=== PATIENT | male | born 1945 | race Caucasian/White ===

== ENCOUNTER 2017-08-08 09:20 | Inpatient (IN) | payer OTHER, MEDICARE ==
[~2017-08-08] VITALS: Ht 193 cm; Wt 74.8 kg
[~2017-08-08 09:20] MED LIST: BENZONATATE100 M1 PO; BREO ELLIPTA 11 EACH PO; CALCIUM 500 +1 EAC5 PO; CHERATUSSIN AC118 ML PO; CO Q-10100 MG PO; CRESTOR10 M1 PO; DILTIAZEM ER120 M2 PO; ELIQUIS5 M1 PO; ISOSORBIDE DINIT5 MG PO; LANSOPRAZOLE30 M2 PO; LORAZEPAM0.5 M1 PO; MAGNESIUM OXID400 M1 PO; METOPROLOL SUCC50 M2 PO; OMEGA-3 ACID ETH1 GM PO; POTASSIUM CHLO20 ME2 PO; POTASSIUM CITR10 ME1 PO; PROAIR HFA8.5 GM INH; RANEXA500 M1 PO; Slow-Mag PO; TOPROL XL50 M1 PO; VITAMIN D31000 UNI2 PO
--- NOTE | 2017-08-08 09:24 | ED GENERAL ADULT ---
History of Present Illness General Chief Complaint: Altered Mental Status Stated Complaint: AMS Source: patient, family, old records, EMS Exam Limitations: poor historian Allergies Coded Allergies: NO KNOWN ALLERGIES (11/08/15) Reconcile Medications Albuterol Sulfate (Proair Hfa) 8.5 GM HFA.AER.AD 2 PUF INH Q4H PRN COPD ( Reported) Amiloride HCl 5 MG TABLET 1 TAB PO DAILY FLUID (Reported) Apixaban (Eliquis) 5 MG TABLET 1 TAB PO BID BLOOD THINNER (Reported) Benzonatate 100 MG CAPSULE 1 CAP PO BID COUGHING (Reported) Calcium Carbonate/Vitamin D3 (Calcium 500 + D Tablet) 1 EACH TABLET 1 TAB PO BID SUPPLEMENT (Reported) Cholecalciferol (Vitamin D3) 1,000 UNIT TABLET 1 TAB PO DAILY SUPPLEMENT ( Reported) Dexamethasone 2 MG TABLET 1 TAB PO DAILY SOB (Reported) Diltiazem Cd (Diltiazem ER) 120 MG CAP.ER.DEG 1 TAB PO DAILY HEART RATE CONTROL Fluticasone/Vilanterol (Breo Ellipta 100-25 Mcg INH) 1 EACH BLST.W.DEV 1 INH PO DAILY COPD (Reported) Guaifenesin/Codeine Phosphate (Cheratussin AC Syrup) 118 ML LIQUID 10 ML PO Q4 -6H PRN COUGH (Reported) Lansoprazole 30 MG CAPSULE.DR 1 CAP PO QAM GI (Reported) Lorazepam 0.5 MG TABLET 1 TAB PO BID PRN anxiety (Reported) Magnesium Oxide 400 MG TABLET 1 TAB PO BID SUPPLEMENT (Reported) Metoprolol Succinate 50 MG TAB.ER.24H 1 TAB PO QAM HEART/BP (Reported) [place]-3 Acid Ethyl Esters 1 GM CAPSULE 2 CAP PO BID CHOLESTEROL (Reported) Potassium Citrate (Potassium Citrate ER) 10 MEQ TABLET.ER 2 TAB PO BID LOW POTASSIUM Ranolazine (Ranexa) 500 MG TAB.ER.12H 1 TAB PO BID Coronary artery disease Rosuvastatin Calcium (Crestor) 10 MG TABLET 1 TAB PO QAM CHOLESTEROL ( Reported) [Slow-Mag] 64 MG 1 TAB PO BID LOW MAGNESIUM Ubidecarenone (Co Q-10) 100 MG CAPSULE 1 CAP PO DAILY SUPPLEMENT (Reported) Triage Nurses Notes Reviewed? yes Onset: Gradual Duration: getting worse Timing: recent history Severity: severe Severity Numbers: 7 HPI: Patient is a 72-year-old male with a past medical history of atrial fibrillation (on eliquis for AC), recurrent SCCA of the lung - currently on chemotherapy ( previously treated with chemo/radiation/gamma knife therapy), AL/CAD (triple vessel disease - cardiac cath 1983), COPD, HTN, and HLD, DM AND Old records also indicate that patient had MRI of brain and CT scan of abdomen showing concerns of metastases brain and spleen hypodensity for concerns of metastasis History is limited due to patient's point confusion and being a poor historian however patient is brought in by ambulance for concerns of productive cough increased confusion and lethargy fever noted at home by home care givers, and shortness of breath is present states that he's been too weak to get out of bed Denies any slurred speech or unilateral facial or extremity weakness no vomiting Patient denies any abdominal pain (Tim Jaimes) Vital Signs & Intake/Output Vital Signs & Intake/Output Vital Signs Date Time Temp Pulse Resp B/P B/P Pulse O2 O2 Flow FiO2 Mean Ox Delivery Rate 08/08 1417 100.5 106 20 102/68 93 Nasal 3.0L Cannula 08/08 1207 98.3 122 20 111/67 91 Room Air 08/08 1055 93 Nasal 3.0L Cannula 08/08 1051 91 08/08 1030 98.2 112 20 113/66 90 Room Air 08/08 0936 98.0 120 22 127/64 93 Nasal 3.0L Cannula (Mai ADAN,Allen Paulson) Past History Medical History Any Pertinent Medical History? see below for history Neurological: NONE EENT: NONE Cardiovascular: AFIB, CAD, hypertension, hyperlipidemia, myocardial infarction Respiratory: COPD Gastrointestinal: GERD Hepatic: NONE Renal: NONE Musculoskeletal: NONE Psychiatric: depression Endocrine: diabetes Blood Disorders: anemia Cancer(s): lung cancer ELEMENTARY SPANISH TEACHER/Reproductive: NONE History of MRSA: No History of VRE: No History of CDIFF: No Pneumonia Vaccine: 04/22/11 Surgical History Surgical History: non-contributory Psychosocial History Who do you live with Spouse Services at Home None What is your primary language Serbian Family History Family History, If Any: Relation not specified for: *No pertinent family history Hx Contributory? No (Tim Jaimes) Review of Systems Review of Systems Constitutional: Reports: see HPI, fever. EENTM: Reports: no symptoms. Respiratory: Reports: see HPI, cough, short of breath. Cardiovascular: Reports: see HPI. Denies: chest pain. GI: Reports: no symptoms. Genitourinary: Reports: no symptoms. Musculoskeletal: Reports: no symptoms. Skin: Reports: no symptoms. Neurological/Psychological: Reports: see HPI. Hematologic/Endocrine: Reports: no symptoms. Immunologic/Allergic: Reports: no symptoms. All Other Systems: Reviewed and Negative (Adebayo TAPIA,Tim) Physical Exam Physical Exam General Appearance: comfortable, lethargic Head: atraumatic Eyes: Bilateral: normal appearance, PERRL, EOMI. Ears, Nose, Throat: normal ENT inspection, hearing grossly normal, DRY MUCOUS MEMBRANES Neck: normal inspection Respiratory: no respiratory distress, crackles Cardiovascular: tachycardia, irregularly irregular Peripheral Pulses: 2+ radial (R) Gastrointestinal: normal bowel sounds, soft, non-tender, no organomegaly Extremities: normal capillary refill, normal range of motion, no edema Neurologic/Psych: awake, disoriented x 3 Comments: Bilateral lower extremities noted scattered well-healing skin scabs Core Measures ACS in differential dx? Yes CVA/TIA Diagnosis: No Sepsis Present: Yes Sepsis Focused Exam Completed? Yes (Adebayo TAPIA,Tim) Progress Differential Diagnoses I considered the following diagnoses in my evaluation of the patient: [CHF TIA CVA myocardial infarction sepsis lung cancer and pulmonary embolism, pneumonia, RAFAEL,] Diagnostic Imaging: Viewed by Me: CT Scan. Radiology Impression: acute abnormality Initial ED EKG: ATRIAL FIBRILLATION 112 BPM WITH CONCERNS OF LATERAL st DEPRESSION Prior EKG: changed Comments: PATIENT: CARLOS EDUARDO LOMELI PRESENT AGE: 72 PATIENT ACCOUNT NO: [id number] : 45 LOCATION: [facility] ORDERING PHYSICIAN: Tim TAPIA SERVICE DATE: 08/08/17 EXAM TYPE: CAT - CT ABD & PELVIS W IV CONTRAST; CTA CHEST-PULMONARY EMBOLISM EXAMINATION: CT ANGIOGRAM OF THE CHEST WITH AND WITHOUT CONTRAST (CT PULMONARY ANGIOGRAM FOR PE). CT OF THE ABDOMEN AND PELVIS WITH CONTRAST CLINICAL INFORMATION: Hypoxia. Sepsis. Lung cancer. Known brain metastases. COMPARISON: CT of the chest abdomen pelvis on 04/09/2017. (Right apical lung mass with chest wall invasion. Right hilar adenopathy. Abnormal spleen. Small right pleural effusion). TECHNIQUE: Prior to contrast administration, noncontrast localization images were obtained. Subsequently, multidetector volumetric imaging was performed from the thoracic inlet to below the diaphragms following the administration of 95 mL Optiray 350 intravenous contrast. No contrast reaction reported Sagittal, coronal, and MIP oblique sagittal reformatted images were obtained on the CT workstation, uploaded to PACS, and reviewed. This sequence was followed by CT of the abdomen and pelvis with coronal and sagittal reformats. Total exam dose-length product 1129 mGy-cm FINDINGS: Shank Rander: Enlarging Pancoast tumor right hemithorax. Central venous port catheter directed from the left internal jugular vein to the cavoatrial junction. No intestinal obstruction. Acute process involves the left lower lobe. QUALITY OF STUDY/CONTRAST BOLUS: Excellent. PULMONARY ARTERIES: No central or segmental pulmonary emboli. Pulmonary arteries of the right upper lobe are displaced by the large tumor. THORACIC AORTA: No aneurysm or dissection. LUNG: The large Pancoast tumor in the right apex has increased in size measuring approximately 7.2 cm in width, 10 cm in AP diameter, and 8.6 cm in cephalocaudad dimension. There is continued central necrosis. The tumor extends inferiorly into the region of the right hilum, and there is definite invasion into the posterior mediastinum. There is growth of tumor through the chest wall associated with osteolytic bone destruction of the right upper rib cage and direct extension to the right scapula. A new satellite metastasis measuring 1.8 cm in diameter is located in the right lower lobe. Series 3, image 24. In addition, there are groundglass opacities in the posterior apical and posterior segments of the left upper lobe, superior segment of the left lower lobe, and significant alveolar and interstitial lung disease involving the lower aspect of the left lower lobe. The appearance would indicate superimposed acute multilobar pneumonia. PLEURA: The right pleural effusion has increased in volume. There are nodular metastases involving the visceral pleural reflection of the right lung. MEDIASTINUM: Normal heart size. No significant pericardial effusion. As mentioned above, there is direct tumor extension into the superior aspect of the right hilum and direct invasion into the adjacent posterior mediastinum. No evidence of septal bowing or right heart strain. CHEST WALL/AXILLA: As mentioned above, there is through and through direct extension and invasion of the superior aspect of the right hemithorax involving ribs and scapula. There is no bulk adenopathy of the right axilla. LIVER, GALLBLADDER, AND BILIARY TREE: The liver is normal in size, shape, and attenuation. No focal hepatic lesion or biliary ductal dilatation is present. The gallbladder is abnormally enlarged, but no stones are seen within it. PANCREAS: Fatty replacement. SPLEEN: Normal size. The well demarcated round hypodense nodule in the spleen measures 1.4 cm in diameter. No growth since March 2017. ADRENAL GLANDS: No evidence of metastatic disease. KIDNEYS AND URETERS: The kidneys are normal in size, shape, and attenuation. No hydronephrosis, hydroureter, or calculi. There is exuberant bilateral renal sinus lipomatosis. GASTROINTESTINAL TRACT: Stomach and small bowel non-dilated. No colonic wall thickening or pericolonic inflammatory changes. The distal aspect of the appendix is dilated and filled with mucus. A small appendicolith is present. No periappendiceal inflammatory changes are seen. Series 6, image 545. ABDOMINAL WALL: No hernia seen. LYMPHOVASCULAR STRUCTURES: No lymphadenopathy. The ectatic and calcified aorta is normal in caliber. BLADDER: No focal mass or wall thickening seen. No bladder calculi. PELVIC VISCERA: Unremarkable. OSSEOUS STRUCTURES: Direct extension of the Pancoast tumor results in osteolytic/osteoblastic bone destruction of the right scapula, upper right rib cage, right clavicle, and and the contiguous vertebral bodies at T1-T3. No distant metastatic disease is seen. IMPRESSION: 1. No evidence of pulmonary embolism. 2. Increasing size of the right-sided Pancoast tumor with chest wall extension and direct bone invasion. 3. Enlarging satellite lesion right lower lobe. Pleural seeding with increasing right pleural effusion. 4. Multilobar pneumonia left lung. 5. Hydropic gallbladder without stones. 6. The distal appendix is dilated filled with mucin. VTE: Negative. (Tim Jaimes) Plan of Care: Orders Procedure Date/time Status Consistent Carbohydrate 1 08/08 D Active TROPONIN LEVEL 08/08 1630 Active LACTIC ACID 08/08 1630 Active EKG 08/08 1630 Active Patient Data 08/08 1442 Active Misc Message 08/08 1419 Active ED Holding Orders 08/08 1419 Active Admit to inpatient 08/08 1419 Active Vital Signs 08/08 1419 Active Code Status 08/08 1419 Active LACTIC ACID 08/08 1314 Complete BLOOD CULTURE 08/08 1204 Active Hernandez, Insertion/Removal/Asses 08/08 1053 Active AEROSOL (GEN) 08/08 1050 Complete RAPID VIRAL INFLUENZA A 08/08 1033 Complete D-DIMER 08/08 1022 Complete ARTERIAL BLOOD GAS (GEN) 08/08 1014 Complete Telemetry/Machine Bobbin Winder 08/08 1014 Active CULTURE,URINE 08/08 1014 Active LOWER RESPIRATORY CULTURE 08/08 1014 Active BLOOD CULTURE 08/08 1014 Active URINALYSIS 08/08 1014 Complete TROPONIN LEVEL 08/08 1014 Complete MAGNESIUM 08/08 1014 Complete LACTIC ACID 08/08 1014 Complete COMPREHENSIVE METABOLIC PANEL 08/08 1014 Complete CBC WITHOUT DIFFERENTIAL 08/08 1014 Complete EKG 08/08 0922 Active Current Medications Sig/Mikey Start time Last Medication Dose Stop Time Status Admin Acetaminophen 1,000 MG ONCE ONE 08/08 1500 UNVr (Ofirmev) 08/08 1514 N/A 1 UNIT (No Carrier) Magnesium Sulfate 1 GM Q2H 08/08 1500 UNVr (Mag Sulfate in D5) 08/08 1859 Dextrose/Water 100 ML (D5W) Sodium Chloride 1,000 ML BOLUS ONE 08/08 1500 UNVr (Normal Saline 0.9%) 08/08 1559 Laboratory Tests 08/08/17 1341: Lactic Acid 2.9 H, Urinalysis LIGHT H, Urine Color YEL, Urine Clarity CLEAR, Urine pH 6.0, Ur Specific [place] 1.010, Urine Protein NEG, Urine Ketones NEG, Urine Nitrite POS H, Urine Bilirubin NEG, Urine Urobilinogen 0.2, Ur Leukocyte Esterase NEG, Ur Microscopic SEDIMENT EXAMINED, Urine RBC 1-3, Urine WBC 3-5 H, Urine Bacteria MANY H, Hyaline Casts 1-3 H, Urine Mucus MOD H, Urine Hemoglobin TRACE-INTACT H, Urine Glucose 100 H 08/08/17 1035: pH 7.49 H, pCO2 28 L, pO2 60 L, HCO3 22, ABG O2 Sat (Measured) 89.0 L, Carboxyhemoglobin 1.3 L, O2 Concentration % RA, Phlebotomy Draw Site LEFT BRACHIAL 08/08/17 1015: Anion Gap 20 H, Estimated GFR > 60, BUN/Creatinine Ratio 21.7, Glucose 180 H, Lactic Acid 5.3 H, Calcium 9.0, Magnesium 1.0 L, Total Bilirubin 0.8, AST 21, ALT 36, Alkaline Phosphatase 95, Troponin I 0.07, Total Protein 5.6 L, Albumin 3.2 L, Globulin 2.4, Albumin/Globulin Ratio 1.3, D-Dimer High Sensitivty 920 H , CBC w Diff MAN DIFF ORDERED, RBC 4.56 L, MCV 89.4, MCH 29.7, RDW 17.0 H, MPV 8.7, Gran % 91.7 H, Lymphocytes % 7.1 L, Monocytes % 1.2 L, Eosinophils % 0, Basophils % 0, Absolute Granulocytes 17.7 H, Segmented Neutrophils 84 H, Band Neutrophils 3, Absolute Lymphocytes 1.4, Lymphocytes 11 L, Monocytes 2, Absolute Monocytes 0.2, Absolute Eosinophils 0, Absolute Basophils 0, Platelet Estimate VERIFIED BY SMEAR, Normocytic RBCs VERIFIED, Normochromic RBCs VERIFIED , PUBS MCHC 33.2 Microbiology 08/08 1341 URINE ROUT: Urine Culture - RECD 08/08 1232 NASOPHARYN: Influenza Virus A & B Rapid Smear - COMP 08/08 1205 BLOOD: Blood Culture - RECD 08/08 1042 BLOOD: Blood Culture - RECD 08/08 1014 LOWER RESP: Respiratory Culture - ORD 08/08 1014 LOWER RESP: Gram Stain - ORD 08/08 1014 BLOOD: Blood Culture - CAN Cancelled: Cancelled via OE: NEED LINE BC Patient on initial examination was following all commands appropriately no neurovascular compromise at this time ABG was ordered patient will be given oxygen supplementation Patient has been resting comfortable at bedside however there is concerns sepsis however no concerns for septic shock upon admission IV antibiotics were administered for concerns initially of multilobar pneumonia, PE study was negative patient does have pleural effusion and concerns of worsening metastasis , there is also consideration of urinary tract infection Patient will also be admitted for concerns of ST depression that is new from previous EKGs Discussed admission with Dr. Oneill who also evaluated patient Discussed admission with family members were aware and agree (Tim Jaimes) (Mai ADAN,Allen Paulson) ED Sepsis Exam Date of Focused Sepsis Exam: 08/08/17 Time of Focused Sepsis Exam: 1107 Sepsis Cardiac Exam: Tachycardia Sepsis Resp Exam: CRACKLES Sepsis Cap Refill Exam: <2 Sec Sepsis Peripheral Pulse Exam: Normal Sepsis Peripheral Pulse Location: Radial Sepsis Skin Color Exam: Pale Skin Temp/Moisture Exam: Warm/Dry (Tim Jaimes) Departure Departure Disposition: STILL A PATIENT Condition: Guarded Clinical Impression Primary Impression: Sepsis Secondary Impressions: EKG abnormality, Metastasis, Pleural effusion, Pneumonia, Respiratory failure, UTI (urinary tract infection) Referrals: Liv ADAN,Max Harris (PCP/Family) Departure Forms: Customer Survey General Discharge Information Admission Note Spoke With: Stefania ADAN,Lisa Sage Documentation of Exam: Documentation of any treatments & extenuating circumstances including Concerns Regarding Discharge (functional status, medication knowledge or non-compliance, living conditions, etc.) that warrant an admission rather than observation: [ Patient requires telemetry admission for concerns of EKG abnormalities of ST depression in rapid atrial fibrillation however patient also requires admission for sepsis and multilobar pneumonia IV antibiotics are required IV fluid resuscitation repeat labs pulmonary consultation cardiology consultation, infectious disease consultation oncology consultation] (Tim Jaimes) PA/BURR PICKER Co-Sign Statement Statement: ED Attending supervision documentation- [x] I saw and evaluated the patient. I have also reviewed all the pertinent lab results and diagnostic results. I agree with the findings and the plan of care as documented in the PA's/BURR PICKER's documentation. Patient presents for evaluation of altered mental status. Physical examination reveals a pleasant gentleman with no specific complaint, he is cooperative and conversant. [] I have reviewed the ED Record and agree with the PA's/BURR PICKER's documentation. [] Additions or exceptions (if any) to the PAs/BURR PICKER's note and plan are summarized below: [] (Mai ADAN,Allen Paulson) Critical Care Note Critical Care Note Critical Care Time: 30-74 min (Tim Jaimes)
[2017-08-08] MEDS ORDERED: AMILORIDE HCL5 M1 PO (09:57)
[2017-08-08] MEDS ORDERED: DEXAMETHASONE2 M1 PO (09:58)
[2017-08-08 10:33] LABS: ABSOLUTE BASOPHIL COUNT 0 /CUMM (0.0-0.2); ABSOLUTE EOSINOPHIL COUNT 0 /CUMM (0.0-0.7); ABSOLUTE GRANULOCYTE CT 17.7 /CUMM (1.4-6.5); ABSOLUTE LYMPH COUNT 1.4 /CUMM (1.2-3.4); ABSOLUTE MONOCYTE COUNT 0.2 /CUMM (0.10-0.60); BASOPHIL % 0 % (0.0-2.0); EOSINOPHIL % 0 % (0-5); GRANULOCYTE % 91.7 % (42.2-75.2); HEMATOCRIT 40.8 % (42-52); MEAN CORPUSCULAR HGB 29.7 PG (27.0-31.0); MEAN CORPUSCULAR HGB CONC 33.2 G/DL (33.0-37.0); MEAN CORPUSCULAR VOLUME 89.4 FL (80.0-94.0); MEAN PLATELET VOLUME 8.7 FL (7.4-10.4); PLATELET COUNT 338 /CUMM (130-400); RED BLOOD CELL CT 4.56 /CUMM (4.70-6.10); WHITE BLOOD CELL COUNT 19.3 /CUMM (4.8-10.8)
--- NOTE | 2017-08-08 12:42 | CT SCAN REPORT ---
EXAMINATION: CT HEAD WITHOUT CONTRAST CLINICAL INFORMATION: Lung metastases to brain. COMPARISON: Brain MRI 05/10/[address] 05/04/2017. TECHNIQUE: Contiguous axial imaging was performed from the skull base to vertex without intravenous administration of contrast. DLP: 704 mGy-cm. FINDINGS: There is redemonstration of a subcentimeter metastasis in the left lateral cerebellum which appears approximately stable in size since 05/10/2017. The metastases in the left paracentral lobule and in the right inferior occipital lobe are not well defined. No definite new parenchymal metastasis is seen within the limits of the noncontrast mildly motion degraded study. There is no intracranial hemorrhage, extra-axial collection, or mass effect. There is mild diffuse brain parenchymal volume loss with prominence of the ventricles and sulci. The ventricular size is stable compared to prior. The extracranial structures are stable. No destructive calvarial lesion is seen. The paranasal sinuses and mastoid air cells are essentially clear. IMPRESSION: 1. No acute intracranial abnormality identified. 2. The previously seen metastasis in the left inferior cerebellum appears stable in size since 05/10/2017. The additional metastases within the left paracentral lobule and right inferior occipital lobe are not well defined. No definite new metastases are seen although brain MRI with contrast would be more sensitive.
--- NOTE | 2017-08-08 14:41 | CT SCAN REPORT ---
EXAMINATION: CT ANGIOGRAM OF THE CHEST WITH AND WITHOUT CONTRAST (CT PULMONARY ANGIOGRAM FOR PE). CT OF THE ABDOMEN AND PELVIS WITH CONTRAST CLINICAL INFORMATION: Hypoxia. Sepsis. Lung cancer. Known brain metastases. COMPARISON: CT of the chest abdomen pelvis on 04/09/2017. (Right apical lung mass with chest wall invasion. Right hilar adenopathy. Abnormal spleen. Small right pleural effusion). TECHNIQUE: Prior to contrast administration, noncontrast localization images were obtained. Subsequently, multidetector volumetric imaging was performed from the thoracic inlet to below the diaphragms following the administration of 95 mL Optiray 350 intravenous contrast. No contrast reaction reported Sagittal, coronal, and MIP oblique sagittal reformatted images were obtained on the CT workstation, uploaded to PACS, and reviewed. This sequence was followed by CT of the abdomen and pelvis with coronal and sagittal reformats. Total exam dose-length product 1129 mGy-cm FINDINGS: Ultimate Hoops Trainer: Enlarging Pancoast tumor right hemithorax. Central venous port catheter directed from the left internal jugular vein to the cavoatrial junction. No intestinal obstruction. Acute process involves the left lower lobe. QUALITY OF STUDY/CONTRAST BOLUS: Excellent. PULMONARY ARTERIES: No central or segmental pulmonary emboli. Pulmonary arteries of the right upper lobe are displaced by the large tumor. THORACIC AORTA: No aneurysm or dissection. LUNG: The large Pancoast tumor in the right apex has increased in size measuring approximately 7.2 cm in width, 10 cm in AP diameter, and 8.6 cm in cephalocaudad dimension. There is continued central necrosis. The tumor extends inferiorly into the region of the right hilum, and there is definite invasion into the posterior mediastinum. There is growth of tumor through the chest wall associated with osteolytic bone destruction of the right upper rib cage and direct extension to the right scapula. A new satellite metastasis measuring 1.8 cm in diameter is located in the right lower lobe. Series 3, image 24. In addition, there are groundglass opacities in the posterior apical and posterior segments of the left upper lobe, superior segment of the left lower lobe, and significant alveolar and interstitial lung disease involving the lower aspect of the left lower lobe. The appearance would indicate superimposed acute multilobar pneumonia. PLEURA: The right pleural effusion has increased in volume. There are nodular metastases involving the visceral pleural reflection of the right lung. MEDIASTINUM: Normal heart size. No significant pericardial effusion. As mentioned above, there is direct tumor extension into the superior aspect of the right hilum and direct invasion into the adjacent posterior mediastinum. No evidence of septal bowing or right heart strain. CHEST WALL/AXILLA: As mentioned above, there is through and through direct extension and invasion of the superior aspect of the right hemithorax involving ribs and scapula. There is no bulk adenopathy of the right axilla. LIVER, GALLBLADDER, AND BILIARY TREE: The liver is normal in size, shape, and attenuation. No focal hepatic lesion or biliary ductal dilatation is present. The gallbladder is abnormally enlarged, but no stones are seen within it. PANCREAS: Fatty replacement. SPLEEN: Normal size. The well demarcated round hypodense nodule in the spleen measures 1.4 cm in diameter. No growth since March 2017. ADRENAL GLANDS: No evidence of metastatic disease. KIDNEYS AND URETERS: The kidneys are normal in size, shape, and attenuation. No hydronephrosis, hydroureter, or calculi. There is exuberant bilateral renal sinus lipomatosis. GASTROINTESTINAL TRACT: Stomach and small bowel non-dilated. No colonic wall thickening or pericolonic inflammatory changes. The distal aspect of the appendix is dilated and filled with mucus. A small appendicolith is present. No periappendiceal inflammatory changes are seen. Series 6, image 545. ABDOMINAL WALL: No hernia seen. LYMPHOVASCULAR STRUCTURES: No lymphadenopathy. The ectatic and calcified aorta is normal in caliber. BLADDER: No focal mass or wall thickening seen. No bladder calculi. PELVIC VISCERA: Unremarkable. OSSEOUS STRUCTURES: Direct extension of the Pancoast tumor results in osteolytic/osteoblastic bone destruction of the right scapula, upper right rib cage, right clavicle, and and the contiguous vertebral bodies at T1-T3. No distant metastatic disease is seen. IMPRESSION: 1. No evidence of pulmonary embolism. 2. Increasing size of the right-sided Pancoast tumor with chest wall extension and direct bone invasion. 3. Enlarging satellite lesion right lower lobe. Pleural seeding with increasing right pleural effusion. 4. Multilobar pneumonia left lung. 5. Hydropic gallbladder without stones. 6. The distal appendix is dilated filled with mucin. VTE: Negative.
--- NOTE | 2017-08-08 14:45 | History & Physical ---
BeatrizSarathanastasiarasheeda 08/08/17 1444: General Information and HPI MD Statement: I have seen and personally examined CARLOS EDUARDO LOMELI and documented this H&P. The patient is a 72 year old M who presented with a patient stated chief complaint of []. 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 hypertension, hyperlipidemia, diabetes?, A. fib not on anticoagulation, GERD .last chemotherapy was February 2017 and radiation to the brain was April 2017 and patient did not follow up with oncology due to severe weakness and not being able to get out of the house, was brought by ambulance to hospital for severe coughing, G, diarrhea and weakness. Information was obtained from and patient himself. Apparently patient had one episode of severe coughing more than his baseline with sputum production, increased body temperature, episode of diarrhea and nausea with poor appetite. Patient is completely bedbound and has urine and sometimes bowel incontinence according to the . His functional status is gradually getting worse during the 6 months. No sick contacts or recent travels. Patient has a visiting nurse and some of his home medications were discontinued as by the nurse. Patient has not seen any physicians for 6 months due to being bedbound. At the moment patient denies any chest pain, abdominal pain, nausea, vomiting, shortness of breath. Vital signs on arrival was notable for fever 100.5 and tachycardia 120 with borderline low normal blood pressure, And O2 requirements of 3 L EKG 112, QTC 393, questionable mild ST depressions in V4, V5, V6 Head CT IMPRESSION: 1. No acute intracranial abnormality identified. 2. The previously seen metastasis in the left inferior cerebellum appears stable in size since 05/10/2017. The additional metastases within the left paracentral lobule and right inferior occipital lobe are not well defined. No definite new metastases are seen although brain MRI with contrast would be more sensitive. CTA and CT of abdomen and pelvis: IMPRESSION: 1. No evidence of pulmonary embolism. 2. Increasing size of the right-sided Pancoast tumor with chest wall extension and direct bone invasion. 3. Enlarging satellite lesion right lower lobe. Pleural seeding with increasing right pleural effusion. 4. Multilobar pneumonia left lung. 5. Hydropic gallbladder without stones. 6. The distal appendix is dilated filled with mucin. VTE: Negative. WBC 19.3, hemoglobin 13.7 platelets 338, lactic acid 5.9 >> 3.9 , Sodium 133, magnesium 1, potassium 3.3, Glucose 180 , ag 20 , trop 0.7 ABG ph 7.49 , co2 28, o2 60 Patient receives 2 L of NS and ceftriaxone and azithromycin in the ED and his clinical condition significantly improved according to the , urine bacteria many, glucose 100 in the urine Allergies/Medications Allergies: Coded Allergies: NO KNOWN ALLERGIES (11/08/15) Home Med list Albuterol Sulfate (Proair Hfa) 8.5 GM HFA.AER.AD 2 PUF INH Q4H PRN COPD ( Reported) Amiloride HCl 5 MG TABLET 1 TAB PO DAILY FLUID (Reported) Apixaban (Eliquis) 5 MG TABLET 1 TAB PO BID BLOOD THINNER (Reported) Benzonatate 100 MG CAPSULE 1 CAP PO BID COUGHING (Reported) Calcium Carbonate/Vitamin D3 (Calcium 500 + D Tablet) 1 EACH TABLET 1 TAB PO BID SUPPLEMENT (Reported) Cholecalciferol (Vitamin D3) 1,000 UNIT TABLET 1 TAB PO DAILY SUPPLEMENT ( Reported) Dexamethasone 2 MG TABLET 1 TAB PO DAILY SOB (Reported) Digoxin 125 MCG TABLET 1 TAB PO DAILY heart (Reported) Fluticasone/Vilanterol (Breo Ellipta 100-25 Mcg INH) 1 EACH BLST.W.DEV 1 INH PO DAILY COPD (Reported) Guaifenesin (Mucinex) 600 MG TAB.ER.12H 1 TAB PO BID cough (Reported) Guaifenesin/Codeine Phosphate (Cheratussin AC Syrup) 118 ML LIQUID 10 ML PO Q4 -6H PRN COUGH (Reported) Lansoprazole 30 MG CAPSULE.DR 1 CAP PO QAM GI (Reported) Loratadine (Claritin) 10 MG TABLET 1 TAB PO DAILY cough (Reported) Lorazepam 0.5 MG TABLET 1 TAB PO BID PRN anxiety (Reported) Magnesium Oxide 400 MG TABLET 1 TAB PO BID SUPPLEMENT (Reported) Metoprolol Succinate 50 MG TAB.ER.24H 1 TAB PO QAM HEART/BP (Reported) [place]-3 Acid Ethyl Esters 1 GM CAPSULE 2 CAP PO BID CHOLESTEROL (Reported) Oxycodone HCl/Acetaminophen (Percocet 5-325 MG Tablet) 5 MG-325 MG TABLET 1 TAB PO 4 TIMES/DAY PRN pain (Reported) [Slow-Mag] 64 MG 1 TAB PO BID LOW MAGNESIUM Ubidecarenone (Co Q-10) 100 MG CAPSULE 1 CAP PO DAILY SUPPLEMENT (Reported) Past History Travel History Traveled to [place] past 21 day No Medical History Neurological: NONE EENT: NONE Cardiovascular: AFIB, CAD, hypertension, hyperlipidemia, myocardial infarction Respiratory: COPD Gastrointestinal: GERD Hepatic: NONE Renal: NONE Musculoskeletal: NONE Psychiatric: depression Endocrine: diabetes Blood Disorders: anemia Cancer(s): lung cancer, BRAIN WOOD SAWYER/Reproductive: NONE History of MRSA: No History of VRE: No History of CDIFF: No Pneumonia Vaccine: 04/22/11 Surgical History Surgical History: non-contributory Past Family/Social History Family History Relations & Conditions if any Relation not specified for: *No pertinent family history Psychosocial History Who Do You Live With? spouse Services at Home: None ETOH Use: denies use Illicit Drug Use: denies illicit drug use Functional Ability ADLs Independent: dressing, eating, toileting, bathing. Ambulation: independent IADLs Independent: shopping, housework, finances, food prep, telephone, transportation , medication admin. Review of Systems Review of Systems Constitutional: Reports: see HPI. Exam & Diagnostic Data Last 24 Hrs of Vital Signs/I&O Vital Signs Date Time Temp Pulse Resp B/P B/P Pulse O2 O2 Flow FiO2 Mean Ox Delivery Rate 08/08 1417 100.5 106 20 102/68 93 Nasal 3.0L Cannula 08/08 1207 98.3 122 20 111/67 91 Room Air 08/08 1055 93 Nasal 3.0L Cannula 08/08 1051 91 08/08 1030 98.2 112 20 113/66 90 Room Air 08/08 0936 98.0 120 22 127/64 93 Nasal 3.0L Cannula Intake & Output 08/08 1600 08/08 0800 08/08 0000 Intake Total 0 Output Total Balance 0 Intake, Oral 0 Patient 74.843 kg Weight Physical Exam General Appearance Alert, Oriented X3, No Acute Distress Skin No Rashes Skin Temp/Moisture Exam: Warm/Dry Sepsis Skin Exam (color): Normal for Ethnicity HEENT PERRLA Neck Supple, No JVD Cardiovascular irrgular Lungs rhonci with decreased breath sounds BL Abdomen Normal Bowel Sounds, Soft Extremities No Edema, skin redness on the left buttock 0.5 x 0.5 cm Sepsis Peripheral Pulse Exam: Normal Sepsis Cap Refill Exam: <2 Sec Diagnostic Data EKG Results Afib, heart rate 07/23/2011, QTC 393, questionable mild ST depressions in V4, V5 , V6 Assessment/Plan Assessment: 72-year-old gentleman with past medical history of 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 hypertension, hyperlipidemia, diabetes?, A. fib not on anticoagulation, GERD .last chemotherapy was February 2017 and radiation to the brain was April 2017 and patient did not follow up with oncology due to severe weakness and not being able to get out of the house, was brought by ambulance to hospital for severe coughing, G, diarrhea and weakness. Information was obtained from and patient himself. Apparently patient had one episode of severe coughing more than his baseline with sputum production, increased body temperature, episode of diarrhea and nausea with poor appetite. Patient is completely bedbound and has urine and sometimes bowel incontinence according to the . His functional status is gradually getting worse during the 6 months. No sick contacts or recent travels. Patient has a visiting nurse and some of his home medications were discontinued as by the nurse. Patient has not seen any physicians for 6 months due to being bedbound. At the moment patient denies any chest pain, abdominal pain, nausea, vomiting, shortness of breath. Vital signs on arrival was notable for fever 100.5 and tachycardia 120 with borderline low normal blood pressure, And O2 requirements of 3 L EKG 112, QTC 393, questionable mild ST depressions in V4, V5, V6 Head CT IMPRESSION: 1. No acute intracranial abnormality identified. 2. The previously seen metastasis in the left inferior cerebellum appears stable in size since 05/10/2017. The additional metastases within the left paracentral lobule and right inferior occipital lobe are not well defined. No definite new metastases are seen although brain MRI with contrast would be more sensitive. CTA and CT of abdomen and pelvis: IMPRESSION: 1. No evidence of pulmonary embolism. 2. Increasing size of the right-sided Pancoast tumor with chest wall extension and direct bone invasion. 3. Enlarging satellite lesion right lower lobe. Pleural seeding with increasing right pleural effusion. 4. Multilobar pneumonia left lung. 5. Hydropic gallbladder without stones. 6. The distal appendix is dilated filled with mucin. VTE: Negative. WBC 19.3, hemoglobin 13.7 platelets 338, lactic acid 5.9 >> 3.9 , Sodium 133, magnesium 1, potassium 3.3, Glucose 180 , ag 20 , trop 0.7 ABG ph 7.49 , co2 28, o2 60 Patient receives 2 L of NS and ceftriaxone and azithromycin in the ED and his clinical condition significantly improved according to the , urine bacteria many, glucose 100 in the urine Assessment Metastatic lung cancer with increased size of the tumor Lactic acidosis Pneumonia Atrial fibrillation not on anticoagulation History of COPD Low magnesium, low potassium, Possible overall malnutrition Small bedsore in the buttocks A nonspecific EKG changes Plan Admit to telemetry EKG and troponin 2 Replete potassium and magnesium via oral and IV administration Aggressive IV hydration with bolus and maintenance IV therapy Diabetic diet and Accu-Cheks Hold during attacks for now Hold metoprolol Continue dexamethasone 2 mg daily Continue lorazepam when necessary Continue PPI oral Continue digoxin and check digital If patient heart rate increased he can give low-dose IV metoprolol after ruling out dehydration Continue IV ceftriaxone and azithromycin, blood cultures 2, sputum culture, urine Legionella and strep antigen follow urine culture Full code, DVT to prophylaxis mechanical and pharmacological As Ranked By This Provider Problem List: 1. Pneumonia Core Measures/Misc (04/08) Acute Coronary Syndrome ACS Diagnosis: No Congestive Heart Failure Congestive Heart Failure Diagnosis No Cerebrovascular Accident CVA/TIA Diagnosis: No VTE (View Protocol) VTE Risk Factors Cancer/chemo/othr therapy No Mechanical VTE Prophylaxis d/t N/A MechProphylax Ordered No VTE Pharm Prophylaxis d/t NA PharmProphylax ordered Sepsis (View protocol) Sepsis Present: Yes Stewart Sanchez 08/08/17 1552: Attending MD Review Statement Attending Statement Attending MD Statement: examined this patient, discuss w/resident/PA/SEPTIC TECHNICIAN, agreed w/resident/PA/SEPTIC TECHNICIAN, discussed with family, reviewed EMR data (avail), discussed with nursing, discussed with case mgmt Attending Assessment/Plan: 72-year-old male with a past medical history of atrial fibrillation , recurrent SCCA of the lung - currently on radiation therapy for which he got only 3 out of 10 treatments (previously treated with chemo/gamma knife therapy), WI/CAD in 1983, COPD- quit smoking in 1983, HTN, and HLD, DM AND 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 Patient is brought in by ambulance for concerns of productive cough increased confusion and lethargy fever noted at home and also poor appetite. Pt had a CT scan of the chest and abdomen with contrast done which showed- "1. No evidence of pulmonary embolism. 2. Increasing size of the right-sided Pancoast tumor with chest wall extension and direct bone invasion. 3. Enlarging satellite lesion right lower lobe. Pleural seeding with increasing right pleural effusion. 4. Multilobar pneumonia left lung." Pt in ER was found to have high lactic acid alongwith high wbc with left shift and was given fluid boluses and abx in ED. His tmax in ED was 100.5 Pt being admitted to telemetry due to some ekg changes . A/P- 1. Sepsis secondary to multilobar penumonia- will cont with iv fluids , will be cautious given his increasing rt side pleural effusion. Will stop fluids once his LAcid is normal. will recheck LA in few hours. will start on ceftriaxone and zithromax. 2. Lung cancer with brain metastasis- cont on dexamethasone home dose. will get oncology consult. Pt has very poor performance status and is bedbound for last 3 months and is getting home PT. D/w pt and family hospice and pt does not want to be hospice and wants to be full code. 3. Afib- montior on telmetry. will do repeat trop and will cont on digoxin , will hold on metoprolol for now and will get digoxin level. 4. Code status and goals of care discussed with family. wants to be full code and does not want hospice.
--- NOTE | 2017-08-08 15:41 | Admission Certification ---
Admission Certification Certification Statement - As attending physician, I certify that at the time of - admission, based on clinical presentation, severity of - symptoms, need for further diagnostic testing and - therapeutic interventions, and risk of adverse outcomes - without in-hospital treatment, in my clinical assessment, - this patient requires an acute hospital stay for a minimum - of two nights or longer. I have also considered psychsocial - factors such as support system, advanced age, financial - issues, cognitive issues, and failed out-patient treatments, - past re-admission history, safety of patient, and lack of - compliance as applicable. Specific rationale supporting this admission is: sepsis pneumonia
[2017-08-08] MEDS ORDERED: CLARITIN10 M1 PO (16:27)
[2017-08-08] MEDS ORDERED: MUCINEX600 M1 PO (16:28)
[2017-08-08] MEDS ORDERED: PERCOCET 5-3251 EACH PO (16:28)
[2017-08-08] MEDS ORDERED: DIGOXIN125 MCG PO (16:29)
[2017-08-08 16:30] VITALS: BP 74/0
[2017-08-08 16:51] VITALS: BP 86/0
--- NOTE | 2017-08-08 16:52 | Cons- CRCU ---
See Addendum Laisha Flores 08/08/17 1651: General Information and HPI Consulting Request Date of Consult: 08/08/17 Requested By: Dr. Sanchez Reason for Consult: Sepsis 2/2 multilobar pneumonia Source of Information: family Exam Limitations: clinical condition, poor historian History of Present Illness: 72-year-old gentleman with past medical history of lung cancer most likely NSCC status post multiple chemotherapies and radiation with metastasis to the brain ( last chemotherapy was February 2017 and radiation to the brain was April 2017 and patient did not follow up with oncology due to severe weakness and not being able to get out of the house) CAD but no stents or CABG? hypertension, hyperlipidemia, diabetes?, A. fib not on anticoagulation, GERD, , was brought by ambulance to hospital for severe coughing, diarrhea and weakness. Patient is brought in by ambulance for concerns of productive cough increased confusion and lethargy fever noted at home and also poor appetite. History is obatined from the patient's daughter Zahraa. According to the patient's daughter, he has been coughing more for the last 24 hrs and has had a decreased PO intake for nav past day. Apparently has been bringing up junky, yellowish red sputum, and has had low grade temos of 99F at home. No hx of CP, SOB, however he reports abdominla pain and 4 episodes fo loose watery diarrhea. Patient also had an episode of hematuria a couple of days ago. No hx of sick contact. Of note patient has not been recently hospitalized and has erich bed bound since May. He was ndergoing radiation treatment, hwoever because he is bedbound, has been unale to make any appointments. There is no hx of aspiration. Vitals at the time of admission blood pressure 127/64, respiratory rate of 12, tachycardic to 120, afebrile saturating 92% on 3 L of oxygen via nasal cannula. Labs pertinent for leukocytosis with white blood cell count 19,300 with 3 bands, H&H of 13.6/40.8, MCV of 89.4 and a normal platelet count of 338,000. Serum chemistries revealed a sodium of 133, potassium of 3.3, bicarbonate of 21, elevated anion gap of 20, BUN 13 creatinine 0.6. Serum glucose was 118. Lactic acid first set was 5.3 with a repeat one at 2.9. Serum magnesium was 1.0. LFTs unremarkable with an AST/SGOT 21/36, total bili is 0.8, alkaline phosphatase of 95. First set of troponin 0.07. D-dimer was 920. Digoxin level not received. ABGs revealed respiratory alkalosis with a pH of 7.49, PCO2 of 28 and a PO2 of 60. UA was light with positive for nitrite with 3 to 5W BCs, many bacteria and hyaline casts The ER he underwent a CAT scan of the abdomen and pelvis is off right-sided Pancoast tumor with chest wall extension and direct bony invasion, enlarging satellite lesion of the right lower lobe with pleural seeding and increasing right pleural effusion with multilobar pneumonia in the left lung. Head CT was done which shows no acute intracranial abnormality, previously seen metastases in the left inferior cerebellum which are stable since 05/10/2017 with additional metastases within the left paracentral lobule and right inferior occipital lobe which are not well-defined. In the ER he received 2 L of normal saline, ceftriaxone and azithromycin after which his clinical condition improved according to the . He was admitted to Telemetry for sepsis 2/2 multilobar PNA and acute hypoxic respiratory failure. CRCU consult is being placed as the patient's blood pressure dropped to 86 over Dopplerafter having received 4.0L of NS. Of note, patient is on 2mg of Decadron PO daily, and did not take his edication today. Allergies/Medications Allergies: Coded Allergies: NO KNOWN ALLERGIES (11/08/15) Home Med List: Albuterol Sulfate (Proair Hfa) 8.5 GM HFA.AER.AD 2 PUF INH Q4H PRN COPD ( Reported) Amiloride HCl 5 MG TABLET 1 TAB PO DAILY FLUID (Reported) Apixaban (Eliquis) 5 MG TABLET 1 TAB PO BID BLOOD THINNER (Reported) Benzonatate 100 MG CAPSULE 1 CAP PO BID COUGHING (Reported) Calcium Carbonate/Vitamin D3 (Calcium 500 + D Tablet) 1 EACH TABLET 1 TAB PO BID SUPPLEMENT (Reported) Cholecalciferol (Vitamin D3) 1,000 UNIT TABLET 1 TAB PO DAILY SUPPLEMENT ( Reported) Dexamethasone 2 MG TABLET 1 TAB PO DAILY SOB (Reported) Digoxin 125 MCG TABLET 1 TAB PO DAILY heart (Reported) Fluticasone/Vilanterol (Breo Ellipta 100-25 Mcg INH) 1 EACH BLST.W.DEV 1 INH PO DAILY COPD (Reported) Guaifenesin (Mucinex) 600 MG TAB.ER.12H 1 TAB PO BID cough (Reported) Guaifenesin/Codeine Phosphate (Cheratussin AC Syrup) 118 ML LIQUID 10 ML PO Q4 -6H PRN COUGH (Reported) Lansoprazole 30 MG CAPSULE.DR 1 CAP PO QAM GI (Reported) Loratadine (Claritin) 10 MG TABLET 1 TAB PO DAILY cough (Reported) Lorazepam 0.5 MG TABLET 1 TAB PO BID PRN anxiety (Reported) Magnesium Oxide 400 MG TABLET 1 TAB PO BID SUPPLEMENT (Reported) Metoprolol Succinate 50 MG TAB.ER.24H 1 TAB PO QAM HEART/BP (Reported) [place]-3 Acid Ethyl Esters 1 GM CAPSULE 2 CAP PO BID CHOLESTEROL (Reported) Oxycodone HCl/Acetaminophen (Percocet 5-325 MG Tablet) 5 MG-325 MG TABLET 1 TAB PO 4 TIMES/DAY PRN pain (Reported) [Slow-Mag] 64 MG 1 TAB PO BID LOW MAGNESIUM Ubidecarenone (Co Q-10) 100 MG CAPSULE 1 CAP PO DAILY SUPPLEMENT (Reported) Current Medications: Current Medications Sig/Mikey Start time Last Medication Dose Route Stop Time Status Admin Acetaminophen 650 MG Q6P PRN 08/08 1600 AC PO Acetaminophen 1,000 MG ONCE ONE 08/08 1500 DC 08/08 N/A 1 UNIT IV 08/08 1514 1458 Acetaminophen 0 .STK-MED ONE 08/08 1458 DC IV Albuterol Sulfate 3 ML ONCE ONE 08/08 1015 DC 08/08 INH 08/08 1016 1040 Azithromycin 500 MG DAILY 08/09 1000 AC Sodium Chloride 250 ML IV Azithromycin 500 MG ONCE ONE 08/08 1130 DC 08/08 Sodium Chloride 250 ML IV 08/08 1229 1215 Benzonatate 100 MG BID 08/08 1553 AC PO Budesonide/ 2 PUF BID 08/08 1552 AC Formoterol Fumarate INH Ceftazidime 1,000 MG IQ8 08/09 0000 AC IV Ceftriaxone Sodium 1,000 MG DAILY 08/09 1000 CAN IV Ceftriaxone Sodium 0 .STK-MED ONE 08/08 1212 DC .ROUTE Ceftriaxone Sodium 1,000 MG ONCE ONE 08/08 1130 DC 08/08 IV 08/08 1131 1215 Cholecalciferol 1,000 IU DAILY 08/08 1553 AC PO Dexamethasone 2 MG DAILY 08/08 1552 DC PO Digoxin 0.125 MG 1700 08/08 1700 AC PO Enoxaparin Sodium 40 MG DAILY 08/09 1000 AC SC Guaifenesin/Codeine 10 ML Q6-PRN PRN 08/08 1630 AC Phosphate PO Hydrocortisone 100 MG Q8 08/08 1730 AC 08/08 Sodium Succinate IV 1745 Lorazepam 0.5 MG BID PRN 08/08 1600 AC PO 08/15 1559 Magnesium Chloride 64 MG TID 08/08 1630 AC PO Magnesium Oxide 400 MG BID 08/08 1553 DC PO Magnesium Sulfate 1 GM Q2H 08/08 1500 DC 08/08 Dextrose/Water 100 ML IV 08/08 1859 1902 Potassium Chloride 40 MEQ Q13H 08/08 1545 AC 08/08 Sodium Chloride 1,000 ML IV 1901 Sodium Chloride 1,000 ML BOLUS ONE 08/08 1715 DC 08/08 IV 08/08 1814 1721 Sodium Chloride 1,000 ML BOLUS ONE 08/08 1500 DC 08/08 IV 08/08 1559 1458 Sodium Chloride 1,000 ML BOLUS ONE 08/08 1130 DC 08/08 IV 08/08 1229 1215 Sodium Chloride 1,000 ML BOLUS ONE 08/08 1100 DC 08/08 IV 08/08 1159 1126 Vancomycin HCl 1,000 MG Q12 08/08 2200 AC Sodium Chloride 250 ML IV Review of Systems Review of Systems Constitutional: Reports: fever, malaise, weakness. Denies: chills. EENTM: Denies: visual changes. Cardiovascular: Denies: chest pain, palpitations, peripheral edema. Respiratory: Reports: cough, hemoptysis, sputum production. Denies: orthopnea, short of breath, wheezing. GI: Reports: diarrhea, vomiting. Denies: abdominal pain, nausea. Genitourinary: Reports: hematuria. Musculoskeletal: Reports: no symptoms. Neurological/Psychological: Denies: headache, numbness, tingling, tremors. Past History Travel History Traveled to [place] past 21 day No Medical History Neurological: NONE EENT: NONE Cardiovascular: AFIB, CAD, hypertension, hyperlipidemia, myocardial infarction Respiratory: COPD Gastrointestinal: GERD Hepatic: NONE Renal: NONE Musculoskeletal: NONE Psychiatric: depression Endocrine: diabetes Blood Disorders: anemia Cancer(s): lung cancer, BRAIN G[employer]PLIANCE MECH[employer]IC/Reproductive: NONE Surgical History Surgical History: non-contributory Family History Relations & Conditions If Any: Relation not specified for: *No pertinent family history Psychosocial History Who Do You Live With? spouse Services at Home: None ETOH Use: denies use Illicit Drug Use: denies illicit drug use Functional Ability ADLs Independent: dressing, eating, toileting, bathing. Ambulation: independent IADLs Independent: shopping, housework, finances, food prep, telephone, transportation , medication admin. Exam & Diagnostic Data Last 24 Hrs of Vital Signs/I&O Vital Signs Date Time Temp Pulse Resp B/P B/P Pulse O2 O2 Flow FiO2 Mean Ox Delivery Rate 08/08 1654 99.1 84 20 95 Nasal 3.0L Cannula 08/08 1651 86/0 08/08 1551 92 18 99/64 96 Nasal 3.0L Cannula 08/08 1458 100.5 08/08 1417 100.5 106 20 102/68 93 Nasal 3.0L Cannula 08/08 1207 98.3 122 20 111/67 91 Room Air 08/08 1055 93 Nasal 3.0L Cannula 08/08 1051 91 08/08 1030 98.2 112 20 113/66 90 Room Air 08/08 0936 98.0 120 22 127/64 93 Nasal 3.0L Cannula Intake & Output 08/08 1600 08/08 0800 08/08 0000 Intake Total 2250 Output Total 340 Balance 1910 Intake, IV 2250 Intake, Oral 0 Output, Urine 340 Patient 165 lb Weight Physical Exam General Appearance: comfortable, lethargic, drowsy but arousable Head: atraumatic, normal appearance Eyes: Bilateral: normal appearance, PERRL, EOMI. Neck: normal inspection, supple, no eleavetd JVD Respiratory: b/l ronchi, no wheezing Gastrointestinal: soft, non-tender, hyperactive bowel sounds Extremities: b/l trace edema Neurologic/Psych: no motor/sensory deficits, alert Cranial Nerves: normal hearing, PERRL Last 48 Hrs of Labs/Gaurav: Laboratory Tests 08/08/17 1341: Lactic Acid 2.9 H, Urinalysis LIGHT H, Urine Color YEL, Urine Clarity CLEAR, Urine pH 6.0, Ur Specific [place] 1.010, Urine Protein NEG, Urine Ketones NEG, Urine Nitrite POS H, Urine Bilirubin NEG, Urine Urobilinogen 0.2, Ur Leukocyte Esterase NEG, Ur Microscopic SEDIMENT EXAMINED, Urine RBC 1-3, Urine WBC 3-5 H, Urine Bacteria MANY H, Hyaline Casts 1-3 H, Urine Mucus MOD H, Urine Hemoglobin TRACE-INTACT H, Urine Glucose 100 H 08/08/17 1035: pH 7.49 H, pCO2 28 L, pO2 60 L, HCO3 22, ABG O2 Sat (Measured) 89.0 L, Carboxyhemoglobin 1.3 L, O2 Concentration % RA, Phlebotomy Draw Site LEFT BRACHIAL 08/08/17 1015: Anion Gap 20 H, Estimated GFR > 60, BUN/Creatinine Ratio 21.7, Glucose 180 H, Lactic Acid 5.3 H, Calcium 9.0, Magnesium 1.0 L, Total Bilirubin 0.8, AST 21, ALT 36, Alkaline Phosphatase 95, Troponin I 0.07, Total Protein 5.6 L, Albumin 3.2 L, Globulin 2.4, Albumin/Globulin Ratio 1.3, D-Dimer High Sensitivty 920 H , CBC w Diff MAN DIFF ORDERED, RBC 4.56 L, MCV 89.4, MCH 29.7, RDW 17.0 H, MPV 8.7, Gran % 91.7 H, Lymphocytes % 7.1 L, Monocytes % 1.2 L, Eosinophils % 0, Basophils % 0, Absolute Granulocytes 17.7 H, Segmented Neutrophils 84 H, Band Neutrophils 3, Absolute Lymphocytes 1.4, Lymphocytes 11 L, Monocytes 2, Absolute Monocytes 0.2, Absolute Eosinophils 0, Absolute Basophils 0, Platelet Estimate VERIFIED BY SMEAR, Normocytic RBCs VERIFIED, Normochromic RBCs VERIFIED , PUBS MCHC 33.2 Microbiology 08/08 1341 URINE ROUT: Legionella Antigen - COMP 08/08 1341 URINE ROUT: Streptococcus pneumoniae Antigen (M - COMP 08/08 1232 NASOPHARYN: Influenza Virus A & B Rapid Smear - COMP Diagnostic Data Other Results SERVICE DATE: 08/08/17-110 EXAM TYPE: CAT - CT ABD & PELVIS W IV CONTRAST; CTA CHEST-PULMONARY EMBOLISM FINDINGS: Grassroots Organizer: Enlarging Pancoast tumor right hemithorax. Central venous port catheter directed from the left internal jugular vein to the cavoatrial junction. No intestinal obstruction. Acute process involves the left lower lobe. QUALITY OF STUDY/CONTRAST BOLUS: Excellent. PULMONARY ARTERIES: No central or segmental pulmonary emboli. Pulmonary arteries of the right upper lobe are displaced by the large tumor. THORACIC AORTA: No aneurysm or dissection. LUNG: The large Pancoast tumor in the right apex has increased in size measuring approximately 7.2 cm in width, 10 cm in AP diameter, and 8.6 cm in cephalocaudad dimension. There is continued central necrosis. The tumor extends inferiorly into the region of the right hilum, and there is definite invasion into the posterior mediastinum. There is growth of tumor through the chest wall associated with osteolytic bone destruction of the right upper rib cage and direct extension to the right scapula. A new satellite metastasis measuring 1.8 cm in diameter is located in the right lower lobe. Series 3, image 24. In addition, there are groundglass opacities in the posterior apical and posterior segments of the left upper lobe, superior segment of the left lower lobe, and significant alveolar and interstitial lung disease involving the lower aspect of the left lower lobe. The appearance would indicate superimposed acute multilobar pneumonia. PLEURA: The right pleural effusion has increased in volume. There are nodular metastases involving the visceral pleural reflection of the right lung. MEDIASTINUM: Normal heart size. No significant pericardial effusion. As mentioned above, there is direct tumor extension into the superior aspect of the right hilum and direct invasion into the adjacent posterior mediastinum. No evidence of septal bowing or right heart strain. CHEST WALL/AXILLA: As mentioned above, there is through and through direct extension and invasion of the superior aspect of the right hemithorax involving ribs and scapula. There is no bulk adenopathy of the right axilla. LIVER, GALLBLADDER, AND BILIARY TREE: The liver is normal in size, shape, and attenuation. No focal hepatic lesion or biliary ductal dilatation is present. The gallbladder is abnormally enlarged, but no stones are seen within it. PANCREAS: Fatty replacement. SPLEEN: Normal size. The well demarcated round hypodense nodule in the spleen measures 1.4 cm in diameter. No growth since March 2017. ADRENAL GLANDS: No evidence of metastatic disease. KIDNEYS AND URETERS: The kidneys are normal in size, shape, and attenuation. No hydronephrosis, hydroureter, or calculi. There is exuberant bilateral renal sinus lipomatosis. GASTROINTESTINAL TRACT: Stomach and small bowel non-dilated. No colonic wall thickening or pericolonic inflammatory changes. The distal aspect of the appendix is dilated and filled with mucus. A small appendicolith is present. No periappendiceal inflammatory changes are seen. Series 6, image 545. ABDOMINAL WALL: No hernia seen. LYMPHOVASCULAR STRUCTURES: No lymphadenopathy. The ectatic and calcified aorta is normal in caliber. BLADDER: No focal mass or wall thickening seen. No bladder calculi. PELVIC VISCERA: Unremarkable. OSSEOUS STRUCTURES: Direct extension of the Pancoast tumor results in osteolytic/osteoblastic bone destruction of the right scapula, upper right rib cage, right clavicle, and and the contiguous vertebral bodies at T1-T3. No distant metastatic disease is seen. IMPRESSION: 1. No evidence of pulmonary embolism. 2. Increasing size of the right-sided Pancoast tumor with chest wall extension and direct bone invasion. 3. Enlarging satellite lesion right lower lobe. Pleural seeding with increasing right pleural effusion. 4. Multilobar pneumonia left lung. 5. Hydropic gallbladder without stones. 6. The distal appendix is dilated filled with mucin. VTE: Negative. SERVICE DATE: 08/08/17 EXAM TYPE: CAT - CT HEAD WO IV CONTRAST FINDINGS: There is redemonstration of a subcentimeter metastasis in the left lateral cerebellum which appears approximately stable in size since 05/10/2017. The metastases in the left paracentral lobule and in the right inferior occipital lobe are not well defined. No definite new parenchymal metastasis is seen within the limits of the noncontrast mildly motion degraded study. There is no intracranial hemorrhage, extra-axial collection, or mass effect. There is mild diffuse brain parenchymal volume loss with prominence of the ventricles and sulci. The ventricular size is stable compared to prior. The extracranial structures are stable. No destructive calvarial lesion is seen. The paranasal sinuses and mastoid air cells are essentially clear. IMPRESSION: 1. No acute intracranial abnormality identified. 2. The previously seen metastasis in the left inferior cerebellum appears stable in size since 05/10/2017. The additional metastases within the left paracentral lobule and right inferior occipital lobe are not well defined. No definite new metastases are seen although brain MRI with contrast would be more sensitive. Echo (10/2015): Normal left ventricular systolic function with mild concentric hypertrophy. Mild left atrial enlargement. Assessment/Plan Impression/Plan: In summary this is a 72-year-old gentleman with past medical history of lung cancer most likely NSCC status post multiple chemotherapies and radiation with metastasis to the brain (last chemotherapy was February 2017 and radiation to the brain was April 2017 and patient did not follow up with oncology due to severe weakness and not being able to get out of the house) CAD but no stents or CABG? hypertension, hyperlipidemia, diabetes?, A. fib not on anticoagulation, GERD, was brought by ambulance to hospital for severe coughing, diarrhea and weakness, who was admitted with sepsis 2/2 multilobar pneumonia. Given the fact that he is on chronic steroids, a dn had not received the morning dose, Problem list - Sepsis 2/2 multilobar PNA - Acute hypoxic respiratory failure 2/2 multilobar PNA. PE has been R/O - Lactic acidosis 2/2 sepsis - AGMA 2/2 lactic acidosis with metabolic alkalosis 2/2 vomiting adn dehydration - AMA 2/2 encephalopathy from sepsis - Stage IV NSCC lung cancer - Hx of CAD in 1983 - Diarrhea Recommendations: Recommendations - Would start him on stress dose steroids with Solucortef 100mg IV 8 - Bolus another liter of NS - Low threshold for transfer to ICU if MAP <65mmHg and start on Levophed with goal MAP fo 65mmHg. Of note patient already has a port-a cath - Would cover him with broad spectrum Abx Vanc/Ceftaz/ Azithromycin - F/U LRC, BCx2. - Of note rapid flu and urinary antigen for legionella nd strep pneumo was negative - Repelte Mg to maintain goal > 2, F/U Phosp and replete K - F/U dig levels. - Continue to hold all antihypertensives. - Would avoid benzos - Send stool for C. Diff toxin - ID consult in AM - Of note had an extensive discussion with [facility] patient's daughter Ying who can be reached at [phone] and the who can be reached at [phone] ( home) and [phone] (cell). Patient's family understands the guarded prognosis, and need to be contacted if his clinical condition detriorates. The patient, however, wishes to remain full code. Problem List: 1. Small cell carcinoma of lung 2. Sepsis Consult Acknowledgment - Thank you for your consult request. Carlos Sanchez MD 08/08/17 3605: Assessment/Plan Other Findings/Comments: Agree with resident history, physical and plan. Patient seen independently as well. Discussed with housestaff. Correction - patient has a history of a SMALL cell carcinoma. His prognosis is very poor. Impression 72 year old man * 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 * here with multilobar left sided pneumonia resulting in severe sepsis (low bp) responsive to fluids * confusion/altered mental status * immunocompromised state causing the etiology of the pneumonia to have a broad potential etiology Plan -iv hydration -stress dose steroids given decadron use for brain mets and recently missing dose -broad spectrum abx with recommendation for ID consultation in am, in meantime give vancomycin, ceftazadime and zithromax for atypical coverage -mercado culture, flu swab, legionella ag, strep ag -patient has port for access -if deteriorates can come to ICU, at this time no ICU level of care is required as the BP recovered with IV fluids and steroids -discussed his condition at length with his and daughter. a very poor prognosis was discussed. he remains full code, however this will continue to be addressed. in the meantime if there is a significant deterioration the family may consider moving to a conservative management if the circumstances permit -TRC/Nebs -electrolyte repletion as necessary DVT prophylaxis at all times Consult Acknowledgment - Thank you for your consult request.
[2017-08-08 19:30] VITALS: BP 112/40
[2017-08-08 20:14] VITALS: BP 102/50
[2017-08-08 23:41] VITALS: BP 108/56
[2017-08-09 06:38] VITALS: BP 94/52
--- NOTE | 2017-08-09 07:20 | PN- Housestaff ---
See Addendum Subjective Follow-up For: multilobar PNA Tele-Events Since Last Visit: afib, 70-90 Subjective: Admitted last night. Fever to 100.5 earlier in evening, has since defervesced. Feels good this morning, not complaining of CP, SOB, abd pain, or anything else. Review of Systems Constitutional: Reports: no symptoms. EENTM: Reports: no symptoms. Cardiovascular: Reports: no symptoms. Respiratory: Reports: no symptoms. Gastrointestinal: Reports: no symptoms. Genitourinary: Reports: no symptoms. Musculoskeletal: Reports: no symptoms. Skin: Reports: no symptoms. Neurological/Psychological: Reports: no symptoms. Hematologic/Endocrine: Reports: no symptoms. Immunologic/Allergic: Reports: no symptoms. Objective Last 24 Hrs of Vital Signs/I&O Vital Signs Date Time Temp Pulse Resp B/P B/P Pulse O2 O2 Flow FiO2 Mean Ox Delivery Rate 08/09 0638 98.2 78 20 94/52 95 Nasal Cannula 08/09 0000 Nasal 3.0L Cannula 08/08 2348 98.8 90 20 93 Nasal Cannula 08/08 2341 108/56 08/08 2226 Nasal 3.0L Cannula 08/08 2136 62 108/56 08/08 2014 79 102/50 08/08 1930 79 112/40 08/08 1654 99.1 84 20 95 Nasal 3.0L Cannula 08/08 1651 86/0 08/08 1630 74/0 08/08 1630 96 Nasal 3.0L Cannula 08/08 1551 92 18 99/64 96 Nasal 3.0L Cannula 08/08 1458 100.5 08/08 1417 100.5 106 20 102/68 93 Nasal 3.0L Cannula 08/08 1207 98.3 122 20 111/67 91 Room Air 08/08 1055 93 Nasal 3.0L Cannula 08/08 1051 91 08/08 1030 98.2 112 20 113/66 90 Room Air 08/08 0936 98.0 120 22 127/64 93 Nasal 3.0L Cannula Intake & Output 08/09 0800 08/09 0000 08/08 1600 Intake Total 525 1350 2250 Output Total 250 850 340 Balance 683 238 4477 Intake, IV 425 1250 2250 Intake, Oral 100 100 0 Number 0 Bowel Movements Output, Urine 250 850 340 Patient 165 lb Weight Physical Exam General Appearance: Alert, Oriented X3, Cooperative, No Acute Distress Cardiovascular: irregular Lungs: significant wheezing and crackles bilaterally Abdomen: Normal Bowel Sounds, Soft, No Tenderness Neurological: Normal Speech Extremities: No Edema, Normal Pulses, No Tenderness/Swelling Current Medications: Current Medications Sig/Mikey Start time Last Medication Dose Route Stop Time Status Admin Acetaminophen 650 MG Q6P PRN 08/08 1600 AC PO Acetaminophen 1,000 MG ONCE ONE 08/08 1500 DC 08/08 N/A 1 UNIT IV 08/08 1514 1458 Acetaminophen 0 .STK-MED ONE 08/08 1458 DC IV Albuterol Sulfate 3 ML EVERY 4 HRS/AWAKE 08/09 0800 AC INH Albuterol Sulfate 3 ML ONCE ONE 08/08 1015 DC 08/08 INH 08/08 1016 1040 Azithromycin 500 MG DAILY 08/09 1000 AC Sodium Chloride 250 ML IV Azithromycin 500 MG ONCE ONE 08/08 1130 DC 08/08 Sodium Chloride 250 ML IV 08/08 1229 1215 Benzonatate 100 MG BID 08/08 1553 AC 08/08 PO 2125 Budesonide/ 2 PUF BID 08/08 1552 AC 08/08 Formoterol Fumarate INH 2140 Ceftazidime 1,000 MG IQ8 08/09 0000 AC 08/09 IV 0110 Ceftriaxone Sodium 1,000 MG DAILY 08/09 1000 CAN IV Ceftriaxone Sodium 0 .STK-MED ONE 08/08 1212 DC .ROUTE Ceftriaxone Sodium 1,000 MG ONCE ONE 08/08 1130 DC 08/08 IV 08/08 1131 1215 Cholecalciferol 1,000 IU DAILY 08/08 1553 AC 08/08 PO 2125 Dexamethasone 2 MG DAILY 08/08 1552 DC PO Digoxin 0.125 MG 1700 08/08 1700 AC 08/08 PO 2136 Enoxaparin Sodium 40 MG DAILY 08/09 1000 AC SC Guaifenesin/Codeine 10 ML Q6-PRN PRN 08/08 1630 AC Phosphate PO Hydrocortisone 100 MG Q8 08/08 1730 AC 08/09 Sodium Succinate IV 0556 Lorazepam 0.5 MG BID PRN 08/08 1600 AC PO 08/15 1559 Magnesium Chloride 64 MG TID 08/08 1630 AC 08/08 PO 2124 Magnesium Oxide 400 MG BID 08/08 1553 DC PO Magnesium Sulfate 1 GM Q2H 08/08 1500 DC 08/08 Dextrose/Water 100 ML IV 08/08 1859 1902 Potassium Chloride 20 MEQ ONCE ONE 08/08 2355 CAN PO 08/08 2356 Potassium Chloride 10 MEQ Q1H 08/08 2300 DC 08/09 IV 08/09 0001 0351 Potassium Chloride 20 MEQ ONCE ONE 08/08 2145 DC PO 08/08 2146 Potassium Chloride 40 MEQ Q13H 08/08 1545 AC 08/08 Sodium Chloride 1,000 ML IV 1901 Sodium Chloride 1,000 ML BOLUS ONE 08/08 1715 DC 08/08 IV 08/08 1814 1721 Sodium Chloride 1,000 ML BOLUS ONE 08/08 1500 DC 08/08 IV 08/08 1559 1458 Sodium Chloride 1,000 ML BOLUS ONE 08/08 1130 DC 08/08 IV 08/08 1229 1215 Sodium Chloride 1,000 ML BOLUS ONE 08/08 1100 DC 08/08 IV 08/08 1159 1126 Vancomycin HCl 1,000 MG Q12 08/08 2200 DC Sodium Chloride 250 ML IV Vancomycin HCl 1,000 MG Q12 08/08 2230 AC 08/08 Dextrose/Water 250 ML IV 2259 Last 24 Hrs of Lab/Gaurav Results Last 24 Hrs of Labs/Mics: Laboratory Tests 08/09/17 0704: CBC w Diff Pending, WBC Pending, RBC Pending, Hgb Pending, Hct Pending, MCV Pending, MCH Pending, RDW Pending, Plt Count Pending, MPV Pending, PUBS MCHC Pending 08/09/17 0623: Sodium Pending, Potassium Pending, Chloride Pending, Carbon Dioxide Pending, Anion Gap Pending, BUN Pending, Creatinine Pending, BUN/Creatinine Ratio Pending , Magnesium Pending 08/08/17 1910: Anion Gap 10, Estimated GFR > 60, BUN/Creatinine Ratio 20.0, Lactic Acid 1.5, Phosphorus 3.6, Magnesium 1.6, Troponin I 0.05, Digoxin 0.6 L 08/08/17 1827: Sodium Cancelled, Potassium Cancelled, Chloride Cancelled, Carbon Dioxide Cancelled, Anion Gap Cancelled, BUN Cancelled, Creatinine Cancelled, BUN/ Creatinine Ratio Cancelled, Phosphorus Cancelled, Magnesium Cancelled 08/08/17 1341: Lactic Acid 2.9 H, Urinalysis LIGHT H, Urine Color YEL, Urine Clarity CLEAR, Urine pH 6.0, Ur Specific [place] 1.010, Urine Protein NEG, Urine Ketones NEG, Urine Nitrite POS H, Urine Bilirubin NEG, Urine Urobilinogen 0.2, Ur Leukocyte Esterase NEG, Ur Microscopic SEDIMENT EXAMINED, Urine RBC 1-3, Urine WBC 3-5 H, Urine Bacteria MANY H, Hyaline Casts 1-3 H, Urine Mucus MOD H, Urine Hemoglobin TRACE-INTACT H, Urine Glucose 100 H 08/08/17 1035: pH 7.49 H, pCO2 28 L, pO2 60 L, HCO3 22, ABG O2 Sat (Measured) 89.0 L, Carboxyhemoglobin 1.3 L, O2 Concentration % RA, Phlebotomy Draw Site LEFT BRACHIAL 08/08/17 1015: Anion Gap 20 H, Estimated GFR > 60, BUN/Creatinine Ratio 21.7, Glucose 180 H, Lactic Acid 5.3 H, Calcium 9.0, Magnesium 1.0 L, Total Bilirubin 0.8, AST 21, ALT 36, Alkaline Phosphatase 95, Troponin I 0.07, Total Protein 5.6 L, Albumin 3.2 L, Globulin 2.4, Albumin/Globulin Ratio 1.3, D-Dimer High Sensitivty 920 H , CBC w Diff MAN DIFF ORDERED, RBC 4.56 L, MCV 89.4, MCH 29.7, RDW 17.0 H, MPV 8.7, Gran % 91.7 H, Lymphocytes % 7.1 L, Monocytes % 1.2 L, Eosinophils % 0, Basophils % 0, Absolute Granulocytes 17.7 H, Segmented Neutrophils 84 H, Band Neutrophils 3, Absolute Lymphocytes 1.4, Lymphocytes 11 L, Monocytes 2, Absolute Monocytes 0.2, Absolute Eosinophils 0, Absolute Basophils 0, Platelet Estimate VERIFIED BY SMEAR, Normocytic RBCs VERIFIED, Normochromic RBCs VERIFIED , PUBS MCHC 33.2 Microbiology 08/08 1822 STOOL: Clostridium difficile Toxin A & B - COLB 08/08 1341 URINE ROUT: Legionella Antigen - COMP 08/08 1341 URINE ROUT: Streptococcus pneumoniae Antigen (M - COMP 08/08 1341 URINE ROUT: Urine Culture - RECD 08/08 1232 NASOPHARYN: Influenza Virus A & B Rapid Smear - COMP 08/08 1205 BLOOD: Blood Culture - RECD 08/08 1042 BLOOD: Blood Culture - RECD 08/08 1014 LOWER RESP: Respiratory Culture - COLB 08/08 1014 LOWER RESP: Gram Stain - COLB 08/08 1014 BLOOD: Blood Culture - CAN Cancelled: Cancelled via OE: NEED LINE BC Assessment/Plan Assessment: 72-year-old gentleman with past medical history of lung cancer most likely NSCC status post multiple chemotherapies and radiation with metastasis to the brain, distant NE but no stents or CABG? hypertension, hyperlipidemia, diabetes?, A. fib not on anticoagulation, GERD, last chemotherapy was February 2017 and radiation to the brain was April 2017 and patient did not follow up with oncology due to severe weakness and not being able to get out of the house, was brought by ambulance to hospital for severe coughing, G, diarrhea and weakness. Problem List: 1. Severe Sepsis 2. Multilobar pneumonia 3. Subtherapeutic digoxin 4. Electrolyte abnormalities #Severe sepsis secondary to multilobar pneumonia: Patient presents with productive cough, increased confusion, and shortness of breath. He was found to me 3/4 SIRS criteria (tachycardia, tachypnea, leukocytosis) with suspected source in lung, meeting criteria for sepsis with lactic acidosis. Lactic acid is trended down status post fluid resuscitation. He was initially started on ceftriaxone and azithromycin. However the patient became hypotensive last night and the antibiotic coverage was broadened to vancomycin and ceftazidine. He was given a stress dose of steroids and has since been hemodynamically stable. -Appreciate pulmonology recommendations -Follow cultures -Continue vancomycin, ceftazidine, azithromycin. Consider switching to ceftriaxone and azithromycin. -Hydrocortisone 100 mg every 8 -Guaifenesin -Budesonide/formoterol -Benzonatate -TRC nebs -ID consult #Subtherapeutic digoxin: Digoxin level subtherapeutic. However heart rate has been normal. -CTM heart rate #Electronic abnormalities: Magnesium/K was low. -Continue to monitor -Recheck BEP at 1600 #Chronic medical problems: -Continue home magnesium, digoxin, lorazepam, cholecalciferol, DVT prophylaxis with enoxaparin Consistent carbohydrate 2 diet Full code Problem List: 1. Pneumonia Pain Ratin Pain Location: none Pain Goal: Remain pain free Pain Plan: see a/p Tomorrow's Labs & Rationales: cbc bep mg \
[2017-08-09 08:18] LABS: ABSOLUTE BASOPHIL COUNT 0 /CUMM (0.0-0.2); ABSOLUTE EOSINOPHIL COUNT 0 /CUMM (0.0-0.7); ABSOLUTE LYMPH COUNT 0.3 /CUMM (1.2-3.4); ABSOLUTE MONOCYTE COUNT 0.2 /CUMM (0.10-0.60); BASOPHIL % 0 % (0.0-2.0); EOSINOPHIL % 0 % (0-5)
--- NOTE | 2017-08-09 08:27 | Cons- Oncology ---
General Information and HPI Consulting Request Date of Consult: 08/09/17 Requested By: Daniel ADAN,Stewart Maza Reason for Consult: Metastatic small cell lung cancer Source of Information: patient, family, old records Exam Limitations: poor historian History of Present Illness: Mr. Barraza is a 72-year-old male with metastatic small cell lung cancer, CAD, HLD, HTN, and atrial fibrillation who presented to the hospital with worsening fatigue, cough, and shortness of breath. He has been having progressively worsening weakness and has been basically bed-bound. Over the last few weeks, he has been having increasing shortness of breath and productive cough. He has no fever or chills. he denies any significant diarrhea. He has been unable to follow up in clinic. Due to the progressive symptoms, he was sent to the [facility] Emergency Department by EMS. On admission, he was noted to have a temperature of a 100.5F and tachycardic. Blood pressure was relatively low. He was noted to be slightly confused. CT of the head was obtained and noted stable metastatic disease. CTA of the chest and CT of the abdomen/pelvis demonstrated increasing right-sided Pancoast tumor with direct bone invasion. There was enlarging satellite lesion in the right lower lobe. Pleural seeding was noted and has increased right pleural effusion. He was noted to have multi lobular pneumonia in the left lung. Blood work demonstrated elevated WBC and lactic acid. Of note , he has been on dexamethasone 2 mg daily for appetite stimulant. Allergies/Medications Allergies: Coded Allergies: NO KNOWN ALLERGIES (11/08/15) Home Med List: Albuterol Sulfate (Proair Hfa) 8.5 GM HFA.AER.AD 2 PUF INH Q4H PRN COPD ( Reported) Amiloride HCl 5 MG TABLET 1 TAB PO DAILY FLUID (Reported) Apixaban (Eliquis) 5 MG TABLET 1 TAB PO BID BLOOD THINNER (Reported) Benzonatate 100 MG CAPSULE 1 CAP PO BID COUGHING (Reported) Calcium Carbonate/Vitamin D3 (Calcium 500 + D Tablet) 1 EACH TABLET 1 TAB PO BID SUPPLEMENT (Reported) Cholecalciferol (Vitamin D3) 1,000 UNIT TABLET 1 TAB PO DAILY SUPPLEMENT ( Reported) Dexamethasone 2 MG TABLET 1 TAB PO DAILY SOB (Reported) Digoxin 125 MCG TABLET 1 TAB PO DAILY heart (Reported) Fluticasone/Vilanterol (Breo Ellipta 100-25 Mcg INH) 1 EACH BLST.W.DEV 1 INH PO DAILY COPD (Reported) Guaifenesin (Mucinex) 600 MG TAB.ER.12H 1 TAB PO BID cough (Reported) Guaifenesin/Codeine Phosphate (Cheratussin AC Syrup) 118 ML LIQUID 10 ML PO Q4 -6H PRN COUGH (Reported) Lansoprazole 30 MG CAPSULE.DR 1 CAP PO QAM GI (Reported) Loratadine (Claritin) 10 MG TABLET 1 TAB PO DAILY cough (Reported) Lorazepam 0.5 MG TABLET 1 TAB PO BID PRN anxiety (Reported) Magnesium Oxide 400 MG TABLET 1 TAB PO BID SUPPLEMENT (Reported) Metoprolol Succinate 50 MG TAB.ER.24H 1 TAB PO QAM HEART/BP (Reported) [place]-3 Acid Ethyl Esters 1 GM CAPSULE 2 CAP PO BID CHOLESTEROL (Reported) Oxycodone HCl/Acetaminophen (Percocet 5-325 MG Tablet) 5 MG-325 MG TABLET 1 TAB PO 4 TIMES/DAY PRN pain (Reported) [Slow-Mag] 64 MG 1 TAB PO BID LOW MAGNESIUM Ubidecarenone (Co Q-10) 100 MG CAPSULE 1 CAP PO DAILY SUPPLEMENT (Reported) Current Medications: Current Medications Sig/Mikey Start time Last Medication Dose Route Stop Time Status Admin Acetaminophen 650 MG Q6P PRN 08/08 1600 AC PO Acetaminophen 1,000 MG ONCE ONE 08/08 1500 DC 08/08 N/A 1 UNIT IV 08/08 1514 1458 Acetaminophen 0 .STK-MED ONE 08/08 1458 DC IV Albuterol Sulfate 3 ML EVERY 4 HRS/AWAKE 08/09 0800 AC INH Albuterol Sulfate 3 ML ONCE ONE 08/08 1015 DC 08/08 INH 08/08 1016 1040 Azithromycin 500 MG DAILY 08/09 1000 AC Sodium Chloride 250 ML IV Azithromycin 500 MG ONCE ONE 08/08 1130 DC 08/08 Sodium Chloride 250 ML IV 08/08 1229 1215 Benzonatate 100 MG BID 08/08 1553 AC 08/08 PO 2125 Budesonide/ 2 PUF BID 08/08 1552 AC 08/08 Formoterol Fumarate INH 2140 Ceftazidime 1,000 MG IQ8 08/09 0000 AC 08/09 IV 0110 Ceftriaxone Sodium 1,000 MG DAILY 08/09 1000 CAN IV Ceftriaxone Sodium 0 .STK-MED ONE 08/08 1212 DC .ROUTE Ceftriaxone Sodium 1,000 MG ONCE ONE 08/08 1130 DC 08/08 IV 08/08 1131 1215 Cholecalciferol 1,000 IU DAILY 08/08 1553 AC 08/08 PO 2125 Dexamethasone 2 MG DAILY 08/08 1552 DC PO Digoxin 0.125 MG 1700 08/08 1700 AC 08/08 PO 2136 Enoxaparin Sodium 40 MG DAILY 08/09 1000 AC SC Guaifenesin/Codeine 10 ML Q6-PRN PRN 08/08 1630 AC Phosphate PO Hydrocortisone 100 MG Q8 08/08 1730 AC 08/09 Sodium Succinate IV 0556 Lorazepam 0.5 MG BID PRN 08/08 1600 AC PO 08/15 1559 Magnesium Chloride 64 MG TID 08/08 1630 AC 08/08 PO 2124 Magnesium Oxide 400 MG BID 08/08 1553 DC PO Magnesium Sulfate 1 GM Q2H 08/08 1500 DC 08/08 Dextrose/Water 100 ML IV 08/08 1859 1902 Potassium Chloride 20 MEQ ONCE ONE 08/08 2355 CAN PO 08/08 2356 Potassium Chloride 10 MEQ Q1H 08/08 2300 DC 08/09 IV 08/09 0001 0351 Potassium Chloride 20 MEQ ONCE ONE 08/08 2145 DC PO 08/08 2146 Potassium Chloride 40 MEQ Q13H 08/08 1545 AC 08/08 Sodium Chloride 1,000 ML IV 1901 Sodium Chloride 1,000 ML BOLUS ONE 08/08 1715 DC 08/08 IV 08/08 1814 1721 Sodium Chloride 1,000 ML BOLUS ONE 08/08 1500 DC 08/08 IV 08/08 1559 1458 Sodium Chloride 1,000 ML BOLUS ONE 08/08 1130 DC 08/08 IV 08/08 1229 1215 Sodium Chloride 1,000 ML BOLUS ONE 08/08 1100 DC 08/08 IV 08/08 1159 1126 Vancomycin HCl 1,000 MG Q12 08/08 2200 DC Sodium Chloride 250 ML IV Vancomycin HCl 1,000 MG Q12 08/08 2230 08/08 Dextrose/Water 250 ML IV 2259 Review of Systems Review of Systems Constitutional: Reports: malaise, weakness. Denies: chills, fever. Cardiovascular: Denies: chest pain. Respiratory: Reports: cough, short of breath, sputum production, wheezing. GI: Denies: abdominal pain, diarrhea. Musculoskeletal: Reports: back pain. Neurological/Psychological: Reports: confusion, weakness (generalized). All Other Systems: Reviewed and Negative Past History Travel History Traveled to [place] past 21 day No Medical History Blood Transfusion Hx: No Neurological: NONE EENT: NONE Cardiovascular: AFIB, CAD, hypertension, hyperlipidemia, myocardial infarction Respiratory: COPD Gastrointestinal: GERD Hepatic: NONE Renal: NONE Musculoskeletal: NONE Psychiatric: depression Endocrine: diabetes Blood Disorders: anemia Cancer(s): lung cancer (small-cell), brain metastasis BURLAPPER/Reproductive: NONE Surgical History Surgical History: non-contributory Family History Relations & Conditions If Any: Relation not specified for: *No pertinent family history Psychosocial History Where Do You Live? Home Who Do You Live With? spouse Services at Home: Home Health Aide, Physical Therapy Smoking Status: Unknown If Ever Smoked ETOH Use: denies use Illicit Drug Use: denies illicit drug use Functional Ability ADLs Independent: eating. Needs Assist: dressing, toileting, bathing. Ambulation: non-ambulatory IADLs Independent: finances, telephone, medication admin. Needs Assist: shopping, housework, food prep, transportation. Exam & Diagnostic Data Vital Signs and I&O Vital Signs Date Time Temp Pulse Resp B/P B/P Pulse O2 O2 Flow FiO2 Mean Ox Delivery Rate 08/09 0638 98.2 78 20 94/52 95 Nasal Cannula 08/09 0000 Nasal 3.0L Cannula 08/08 2348 98.8 90 20 93 Nasal Cannula 08/08 2341 108/56 08/08 2226 Nasal 3.0L Cannula 08/08 2136 62 108/56 08/08 2014 79 102/50 08/08 1930 79 112/40 08/08 1654 99.1 84 20 95 Nasal 3.0L Cannula 08/08 1651 86/0 08/08 1630 74/0 08/08 1630 96 Nasal 3.0L Cannula 08/08 1551 92 18 99/64 96 Nasal 3.0L Cannula 08/08 1458 100.5 08/08 1417 100.5 106 20 102/68 93 Nasal 3.0L Cannula 08/08 1207 98.3 122 20 111/67 91 Room Air 08/08 1055 93 Nasal 3.0L Cannula 08/08 1051 91 08/08 1030 98.2 112 20 113/66 90 Room Air 08/08 0936 98.0 120 22 127/64 93 Nasal 3.0L Cannula Intake & Output 08/09 1600 08/09 0800 08/09 0000 Intake Total 525 1350 Output Total 250 850 Balance 275 500 Intake, IV 425 1250 Intake, Oral 100 100 Number 0 Bowel Movements Output, Urine 250 850 Physical Exam General Appearance: no apparent distress, comfortable, cachetic, thin Head: atraumatic Eyes: Right: other (drooping). Respiratory: chest non-tender, decreased breath sounds ( right lower lobe), crackles ( at bases), rhonchi ( diffusely) Cardiovascular: tachycardia Gastrointestinal: normal bowel sounds, soft, non-tender Extremities: no edema Neurologic/Psych: alert, oriented x 3 Cranial Nerves: normal speech, PERRL Lymphatic: no anterior cervical hiram Last 48 Hours of Lab Results: Laboratory Tests 08/09 08/09 08/08 08/08 0704 0623 1910 1827 Chemistry Sodium (137 - 145 mmol/L) Pending 135 L Cancelled Potassium (3.5 - 5.1 mmol/L) Pending 3.0 L Cancelled Chloride (98 - 107 mmol/L) Pending 101 Cancelled Carbon Dioxide (22 - 30 mmol/L) Pending 23 Cancelled Anion Gap (5 - 16) Pending 10 Cancelled BUN (9 - 20 mg/dL) Pending 8 L Cancelled Creatinine (0.7 - 1.2 mg/dL) Pending 0.4 L Cancelled Estimated GFR (>60 ml/min) > 60 BUN/Creatinine Ratio (7 - 25 %) Pending 20.0 Cancelled Lactic Acid (0.7 - 2.1 mmol/L) 1.5 Phosphorus (2.5 - 4.5 mg/dL) 3.6 Cancelled Magnesium (1.6 - 2.3 mg/dL) Pending 1.6 Cancelled Troponin I (<0.11 ng/ml) 0.05 Hematology CBC w Diff Pending WBC Pending RBC Pending Hgb Pending Hct Pending MCV Pending MCH Pending RDW Pending Plt Count Pending MPV Pending PUBS MCHC Pending Toxicology Digoxin (0.8 - 2.0 ng/mL) 0.6 L 08/08 08/08 1341 1035 Blood Gas pH (7.35 - 7.45 PH) 7.49 H pCO2 (35 - 45 TORR) 28 L pO2 (80 - 100 TORR) 60 L HCO3 (21 - 28 MEQ/L) 22 ABG O2 Sat (Measured) (>96.0 %) 89.0 L Carboxyhemoglobin (1.5 - 5.0 %) 1.3 L O2 Concentration % RA Chemistry Lactic Acid (0.7 - 2.1 mmol/L) 2.9 H Miscellaneous Phlebotomy Draw Site LEFT BRACHIAL Urines Urinalysis LIGHT H Urine Color (YEL,AMB,STR) YEL Urine Clarity (CLEAR) CLEAR Urine pH (5.0 - 8.0) 6.0 Ur Specific [place] (1.001 - 1.035) 1.010 Urine Protein (NEG,<30 MG/DL) NEG Urine Ketones (NEG) NEG Urine Nitrite (NEG) POS H Urine Bilirubin (NEG) NEG Urine Urobilinogen (0.1 - 1.0 EU/dl) 0.2 Ur Leukocyte Esterase (NEG) NEG Ur Microscopic SEDIMENT EXAMINED Urine RBC (0 - 5 /HPF) 1-3 Urine WBC (0 - 2 /HPF) 3-5 H Urine Bacteria (NEG/NONE) MANY H Hyaline Casts (0/LPF) 1-3 H Urine Mucus (FEW,NONE) MOD H Urine Hemoglobin (NEG) TRACE-INTACT H Urine Glucose (N MG/DL) 100 H 08/08 1015 Chemistry Sodium (137 - 145 mmol/L) 133 L Potassium (3.5 - 5.1 mmol/L) 3.3 L Chloride (98 - 107 mmol/L) 93 L Carbon Dioxide (22 - 30 mmol/L) 21 L Anion Gap (5 - 16) 20 H BUN (9 - 20 mg/dL) 13 Creatinine (0.7 - 1.2 mg/dL) 0.6 L Estimated GFR (>60 ml/min) > 60 BUN/Creatinine Ratio (7 - 25 %) 21.7 Glucose (65 - 99 mg/dL) 180 H Lactic Acid (0.7 - 2.1 mmol/L) 5.3 H Calcium (8.4 - 10.2 mg/dL) 9.0 Magnesium (1.6 - 2.3 mg/dL) 1.0 L Total Bilirubin (0.2 - 1.3 mg/dL) 0.8 AST (17 - 59 U/L) 21 ALT (21 - 72 U/L) 36 Alkaline Phosphatase (< 127 U/L) 95 Troponin I (<0.11 ng/ml) 0.07 Total Protein (6.3 - 8.2 g/dL) 5.6 L Albumin (3.5 - 5.0 g/dL) 3.2 L Globulin (1.9 - 4.2 gm/dL) 2.4 Albumin/Globulin Ratio (1.1 - 2.2 %) 1.3 Coagulation D-Dimer High Sensitivty (0 - 243 ng/ml) 920 H Hematology CBC w Diff MAN DIFF ORDERED WBC (4.8 - 10.8 /CUMM) 19.3 H RBC (4.70 - 6.10 /CUMM) 4.56 L Hgb (14.0 - 18.0 G/DL) 13.6 L Hct (42 - 52 %) 40.8 L MCV (80.0 - 94.0 FL) 89.4 MCH (27.0 - 31.0 PG) 29.7 RDW (11.5 - 14.5 %) 17.0 H Plt Count (130 - 400 /CUMM) 338 MPV (7.4 - 10.4 FL) 8.7 Gran % (42.2 - 75.2 %) 91.7 H Lymphocytes % (20.5 - 51.1 %) 7.1 L Monocytes % (1.7 - 9.3 %) 1.2 L Eosinophils % (0 - 5 %) 0 Basophils % (0.0 - 2.0 %) 0 Absolute Granulocytes (1.4 - 6.5 /CUMM) 17.7 H Segmented Neutrophils (42.2 - 75.2 %) 84 H Band Neutrophils (0.0 - 5.0 %) 3 Absolute Lymphocytes (1.2 - 3.4 /CUMM) 1.4 Lymphocytes (20.5 - 51.1 %) 11 L Monocytes (1.7 - 9.3 %) 2 Absolute Monocytes (0.10 - 0.60 /CUMM) 0.2 Absolute Eosinophils (0.0 - 0.7 /CUMM) 0 Absolute Basophils (0.0 - 0.2 /CUMM) 0 Platelet Estimate (ADEQUATE) VERIFIED BY SMEAR Normocytic RBCs VERIFIED Normochromic RBCs VERIFIED PUBS MCHC (33.0 - 37.0 G/DL) 33.2 Imaging/Other Studies: CT head without contrast 08/08/2017: 1. No acute intracranial abnormality identified. 2. The previously seen metastasis in the left inferior cerebellum appears stable in size since 05/10/2017. The additional metastases within the left paracentral lobule and right inferior occipital lobe are not well defined. No definite new metastases are seen although brain MRI with contrast would be more sensitive. CTA chest/CT abdomen/pelvis 08/08/2017: 1. No evidence of pulmonary embolism. 2. Increasing size of the right-sided Pancoast tumor with chest wall extension and direct bone invasion. 3. Enlarging satellite lesion right lower lobe. Pleural seeding with increasing right pleural effusion. 4. Multilobar pneumonia left lung. 5. Hydropic gallbladder without stones. 6. The distal appendix is dilated filled with mucin. Assessment/Plan Assessment: Mr. Barraza is a 72-year-old male with metastatic small cell lung cancer, CAD, HLD, HTN, and atrial fibrillation who presented to the hospital with worsening fatigue, cough, and shortness of breath. He has been having progressively worsening weakness and has been basically bed-bound. On presentation, he was noted to be febrile, tachycardic, and hypotensive. Symptomatically improved with fluid resuscitation. CT imaging of the chest, abdomen, and pelvis demonstrated worsening right-sided lung disease, right pleural effusion, and new multi lobular pneumonia on the left side. He has been admitted and has been started on IV fluid with along with antibiotics. Currently , he feels little bit better. He will remain on antibiotics for now. I discussed with the patient and regarding his overall poor prognosis. I discussed his goals of care. He wants to be able to get up and move around at home. He wants to continue with full code for now. He wants to be able to get IV fluid and antibiotics. He does not want any hospice involvement at the moment. I discussed with the patient and regarding overall expectation of the disease and treatment. I discussed that his disease has progressed through multiple treatment and he is not in physical condition to receive therapy. His ECOG performance status is at least 3. I recommended palliation with hospice. He declined this for now. I discussed the option of DNR/DNI with home health. He states he will consider this. For now he will continue with current level of care. Recommendations: 1. multilobular pneumonia - continue antibiotics as per primary team - incentive spirometer - obtain sputum culture 2. metastatic small-cell lung cancer - may need reimaging of the brain - continue dexamethasone 2 mg daily - discussed overall goals of care - recommend home health with transition to hospice if patient is amenable Problem List: 1. Pleural effusion 2. Metastasis 3. Pneumonia 4. Small cell carcinoma of lung 5. A-fib Other Findings/Comments: Please call [phone] with any questions or concerns. Consult Acknowledgment - Thank you for your consult request.
[2017-08-09 09:03] LABS: ABSOLUTE GRANULOCYTE CT 8.8 /CUMM (1.4-6.5); MEAN CORPUSCULAR HGB 29.6 PG (27.0-31.0); MEAN CORPUSCULAR HGB CONC 33.2 G/DL (33.0-37.0); MEAN CORPUSCULAR VOLUME 89.1 FL (80.0-94.0); MEAN PLATELET VOLUME 8.2 FL (7.4-10.4); PLATELET COUNT 241 /CUMM (130-400); RBC DISTRIBUTION WIDTH 16.8 % (11.5-14.5)
[2017-08-09 09:38] LABS: HEMATOCRIT 28.5 % (42-52); WHITE BLOOD CELL COUNT 9.4 /CUMM (4.8-10.8)
[2017-08-09 09:54] LABS: GRANULOCYTE % 94.6 % (42.2-75.2)
--- NOTE | 2017-08-09 11:30 | PN- Pulmonary ---
Subjective HPI/Critical Care Issues: Patient seen and examined this morning. He is much more awake. He is doing better however his underlying issues continue to have a poor prognosis. Objective Current Medications: Current Medications Sig/Mikey Start time Last Medication Dose Route Stop Time Status Admin Acetaminophen 650 MG Q6P PRN 08/08 1600 AC PO Acetaminophen 1,000 MG ONCE ONE 08/08 1500 DC 08/08 N/A 1 UNIT IV 08/08 1514 1458 Acetaminophen 0 .STK-MED ONE 08/08 1458 DC IV Albuterol Sulfate 3 ML EVERY 4 HRS/AWAKE 08/09 0800 AC 08/09 INH 0854 Azithromycin 500 MG DAILY 08/09 1000 AC Sodium Chloride 250 ML IV Azithromycin 500 MG ONCE ONE 08/08 1130 DC 08/08 Sodium Chloride 250 ML IV 08/08 1229 1215 Benzonatate 100 MG BID 08/08 1553 AC 08/09 PO 0859 Budesonide/ 2 PUF BID 08/08 1552 AC 08/09 Formoterol Fumarate INH 0901 Ceftazidime 1,000 MG IQ8 08/09 0000 AC 08/09 IV 0808 Ceftriaxone Sodium 1,000 MG DAILY 08/09 1000 CAN IV Ceftriaxone Sodium 0 .STK-MED ONE 08/08 1212 DC .ROUTE Ceftriaxone Sodium 1,000 MG ONCE ONE 08/08 1130 DC 08/08 IV 08/08 1131 1215 Cholecalciferol 1,000 IU DAILY 08/08 1553 AC 08/09 PO 0858 Dexamethasone 2 MG DAILY 08/08 1552 DC PO Digoxin 0.125 MG 1700 08/08 1700 AC 08/08 PO 2136 Enoxaparin Sodium 40 MG DAILY 08/09 1000 AC 08/09 SC 0901 Guaifenesin/Codeine 10 ML Q6-PRN PRN 08/08 1630 AC 08/09 Phosphate PO 0841 Hydrocortisone 100 MG Q8 08/08 1730 AC 08/09 Sodium Succinate IV 0556 Lorazepam 0.5 MG BID PRN 08/08 1600 AC 08/09 PO 08/15 1559 0840 Magnesium Chloride 64 MG TID 08/08 1630 AC 08/09 PO 0859 Magnesium Oxide 400 MG BID 08/08 1553 DC PO Magnesium Sulfate 1 GM Q2H 08/09 0945 AC 08/09 Dextrose/Water 100 ML IV 08/09 1344 1126 Magnesium Sulfate 1 GM Q2H 08/08 1500 DC 08/08 Dextrose/Water 100 ML IV 08/08 1859 1902 Potassium Chloride 60 MEQ ONCE ONE 08/09 0945 DC PO 08/09 0946 Potassium Chloride 10 MEQ Q1H 08/09 0945 DC 08/09 IV 08/09 1046 1118 Potassium Chloride 20 MEQ ONCE ONE 08/08 2355 CAN PO 08/08 2356 Potassium Chloride 10 MEQ Q1H 08/08 2300 DC 08/09 IV 08/09 0001 0351 Potassium Chloride 20 MEQ ONCE ONE 08/08 2145 DC PO 08/08 2146 Potassium Chloride 40 MEQ Q13H 08/08 1545 AC 08/08 Sodium Chloride 1,000 ML IV 1901 Sodium Chloride 1,000 ML BOLUS ONE 08/08 1715 DC 08/08 IV 08/08 1814 1721 Sodium Chloride 1,000 ML BOLUS ONE 08/08 1500 DC 08/08 IV 08/08 1559 1458 Sodium Chloride 1,000 ML BOLUS ONE 08/08 1130 DC 08/08 IV 08/08 1229 1215 Sodium Chloride 1,000 ML BOLUS ONE 08/08 1100 DC 08/08 IV 08/08 1159 1126 Vancomycin HCl 1,000 MG Q12 08/08 2200 DC Sodium Chloride 250 ML IV Vancomycin HCl 1,000 MG Q12 08/08 2230 AC 08/09 Dextrose/Water 250 ML IV 0858 Vital Signs & I&O Last 24 Hrs of Vitals and I&O: Vital Signs Date Time Temp Pulse Resp B/P B/P Pulse O2 O2 Flow FiO2 Mean Ox Delivery Rate 08/09 0800 Nasal 3.0L Cannula 08/09 0638 98.2 78 20 94/52 95 Nasal Cannula 08/09 0000 Nasal 3.0L Cannula 08/08 2348 98.8 90 20 93 Nasal Cannula 08/08 2341 108/56 08/08 2226 Nasal 3.0L Cannula 08/08 2136 62 108/56 08/08 2014 79 102/50 08/08 1930 79 112/40 08/08 1654 99.1 84 20 95 Nasal 3.0L Cannula 08/08 1651 86/0 08/08 1630 74/0 08/08 1630 96 Nasal 3.0L Cannula 08/08 1551 92 18 99/64 96 Nasal 3.0L Cannula 08/08 1458 100.5 08/08 1417 100.5 106 20 102/68 93 Nasal 3.0L Cannula 08/08 1207 98.3 122 20 111/67 91 Room Air Intake & Output 08/09 1600 08/09 0800 08/09 0000 Intake Total 525 1350 Output Total 250 850 Balance 275 500 Intake, IV 425 1250 Intake, Oral 100 100 Number 0 Bowel Movements Output, Urine 250 850 Exam Other Physical Findings: gen awake heent steroid changes to face cvs s1, s2 lungs bilateral rhonchi abd soft, bs+ port in place ext without edema Results Last 24 Hrs of Lab Results: Laboratory Tests 08/09/17 0704: CBC w Diff NO MAN DIFF REQ, RBC 3.20 L, MCV 89.1, MCH 29.6, RDW 16.8 H, MPV 8.2, Gran % 94.6 H, Lymphocytes % 3.4 L, Monocytes % 2.0, Eosinophils % 0, Basophils % 0, Absolute Granulocytes 8.8 H, Absolute Lymphocytes 0.3 L, Absolute Monocytes 0.2, Absolute Eosinophils 0, Absolute Basophils 0, PUBS MCHC 33.2 08/09/17 0623: Anion Gap 9, Estimated GFR > 60, BUN/Creatinine Ratio 12.5, Magnesium 1.5 L 08/08/17 1910: Anion Gap 10, Estimated GFR > 60, BUN/Creatinine Ratio 20.0, Lactic Acid 1.5, Phosphorus 3.6, Magnesium 1.6, Troponin I 0.05, Digoxin 0.6 L 08/08/17 1827: Sodium Cancelled, Potassium Cancelled, Chloride Cancelled, Carbon Dioxide Cancelled, Anion Gap Cancelled, BUN Cancelled, Creatinine Cancelled, BUN/ Creatinine Ratio Cancelled, Phosphorus Cancelled, Magnesium Cancelled 08/08/17 1341: Lactic Acid 2.9 H, Urinalysis LIGHT H, Urine Color YEL, Urine Clarity CLEAR, Urine pH 6.0, Ur Specific [place] 1.010, Urine Protein NEG, Urine Ketones NEG, Urine Nitrite POS H, Urine Bilirubin NEG, Urine Urobilinogen 0.2, Ur Leukocyte Esterase NEG, Ur Microscopic SEDIMENT EXAMINED, Urine RBC 1-3, Urine WBC 3-5 H, Urine Bacteria MANY H, Hyaline Casts 1-3 H, Urine Mucus MOD H, Urine Hemoglobin TRACE-INTACT H, Urine Glucose 100 H Impression/Plan Impression/Plan Impression/Plan: Impression 72 year old man * 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 * here with multilobar left sided pneumonia resulting in severe sepsis (low bp) responsive to fluids * confusion/altered mental status * immunocompromised state causing the etiology of the pneumonia to have a broad potential etiology Plan -iv hydration -stress dose steroids given decadron use for brain mets and recently missing dose -broad spectrum abx with recommendation for ID consultation in am, in meantime give vancomycin, ceftazadime and zithromax for atypical coverage -f/u all cultures -patient has port for access -if deteriorates can come to ICU, at this time no ICU level of care is required as the BP recovered with IV fluids and steroids -discussed his condition at length with his and daughter. a very poor prognosis was discussed. he remains full code, however this will continue to be addressed. in the meantime if there is a significant deterioration the family may consider moving to a conservative management if the circumstances permit -TRC/Nebs -electrolyte repletion as necessary DVT prophylaxis at all times
[2017-08-09 15:05] VITALS: BP 95/50
--- NOTE | 2017-08-09 17:22 | Cons- Infect Disease ---
General Information and HPI Consulting Request Date of Consult: 08/09/17 Requested By: Stewart Sanchez MD Reason for Consult: Pneumonia left lung Source of Information: patient, family History of Present Illness: This is a 72-year-old man with a history of small cell lung cancer, with brain metastases, status post chemotherapy, discontinued 5 months prior to admission, with a Port-A-Cath still in place, and radiation treatments, discontinued 3 months prior to admission, coronary artery disease, hypertension, atrial fibrillation, not on anticoagulation, diabetes and GERD, maintained on Decadron for appetite stimulation, with a progressive decline in his status over the past 6 months, to the point where he is now bedbound, with decreased po intake, intermittent diarrhea and a chronic cough, admitted on August 08 after he was brought to the emergency room because of worsening of his cough, increasing weakness and undocumented fevers, with Solumedrol given by EMS en route to the hospital. On admission he was febrile to 100.5, with an O2 sat of 85% on room air. Laboratory data revealed a white blood cell count of 19,000, BUN/ creatinine 13 and 0.6, potassium 3.3, lactic acid 5.3, with normal liver enzymes , d-dimer 920, ABG 7.49/28/60 on room air. Urinalysis 1-3 RBCs/3-5 WBCs. CTA of the chest, abdomen and pelvis revealed no evidence of pulmonary embolism, increasing size of the right sided Pancoast tumor with chest wall extension and direct bone invasion, enlarging satellite lesion in the right lower lobe, with pleural seeding and an increasing right pleural effusion, multilobar pneumonia in the left lung and a hydropic gallbladder without stones. CT of the head showed no acute process. He was given IV fluids and was begun on Hydrocortisone after 1 dose of Decadron for stress steroids. He was begun on Ceftriaxone and Azithromycin but he became hypotensive in the evening and was changed to Vancomycin, Ceftazidime and Azithromycin. He defervesced overnight on steroids and feels improved today, with no specific complaints. Allergies/Medications Allergies: Coded Allergies: NO KNOWN ALLERGIES (11/08/15) Home Med List: Albuterol Sulfate (Proair Hfa) 8.5 GM HFA.AER.AD 2 PUF INH Q4H PRN COPD ( Reported) Amiloride HCl 5 MG TABLET 1 TAB PO DAILY FLUID (Reported) Apixaban (Eliquis) 5 MG TABLET 1 TAB PO BID BLOOD THINNER (Reported) Benzonatate 100 MG CAPSULE 1 CAP PO BID COUGHING (Reported) Calcium Carbonate/Vitamin D3 (Calcium 500 + D Tablet) 1 EACH TABLET 1 TAB PO BID SUPPLEMENT (Reported) Cholecalciferol (Vitamin D3) 1,000 UNIT TABLET 1 TAB PO DAILY SUPPLEMENT ( Reported) Dexamethasone 2 MG TABLET 1 TAB PO DAILY SOB (Reported) Digoxin 125 MCG TABLET 1 TAB PO DAILY heart (Reported) Fluticasone/Vilanterol (Breo Ellipta 100-25 Mcg INH) 1 EACH BLST.W.DEV 1 INH PO DAILY COPD (Reported) Guaifenesin (Mucinex) 600 MG TAB.ER.12H 1 TAB PO BID cough (Reported) Guaifenesin/Codeine Phosphate (Cheratussin AC Syrup) 118 ML LIQUID 10 ML PO Q4 -6H PRN COUGH (Reported) Lansoprazole 30 MG CAPSULE.DR 1 CAP PO QAM GI (Reported) Loratadine (Claritin) 10 MG TABLET 1 TAB PO DAILY cough (Reported) Lorazepam 0.5 MG TABLET 1 TAB PO BID PRN anxiety (Reported) Magnesium Oxide 400 MG TABLET 1 TAB PO BID SUPPLEMENT (Reported) Metoprolol Succinate 50 MG TAB.ER.24H 1 TAB PO QAM HEART/BP (Reported) [place]-3 Acid Ethyl Esters 1 GM CAPSULE 2 CAP PO BID CHOLESTEROL (Reported) Oxycodone HCl/Acetaminophen (Percocet 5-325 MG Tablet) 5 MG-325 MG TABLET 1 TAB PO 4 TIMES/DAY PRN pain (Reported) [Slow-Mag] 64 MG 1 TAB PO BID LOW MAGNESIUM Ubidecarenone (Co Q-10) 100 MG CAPSULE 1 CAP PO DAILY SUPPLEMENT (Reported) Past History Travel History Traveled to [place] past 21 day No Medical History Blood Transfusion Hx: No Neurological: NONE EENT: NONE Cardiovascular: AFIB, CAD, hypertension, hyperlipidemia, myocardial infarction Respiratory: COPD Gastrointestinal: GERD Hepatic: NONE Renal: NONE Musculoskeletal: NONE Psychiatric: depression Endocrine: diabetes Blood Disorders: anemia Cancer(s): lung cancer (small-cell), brain metastasis GANDY DANCER/Reproductive: NONE History of MRSA: No History of VRE: No History of CDIFF: No Isolation History: Standard Pneumonia Vaccine: 04/22/11 Surgical History Surgical History: non-contributory Family History Relations & Conditions If Any: Relation not specified for: *No pertinent family history Psychosocial History Where Do You Live? Home Who Do You Live With? spouse Services at Home: Home Health Aide, Physical Therapy Smoking Status: Unknown If Ever Smoked ETOH Use: denies use Illicit Drug Use: denies illicit drug use Functional Ability ADLs Independent: eating. Needs Assist: dressing, toileting, bathing. Ambulation: non-ambulatory IADLs Independent: finances, telephone, medication admin. Needs Assist: shopping, housework, food prep, transportation. Review of Systems Review of Systems Cardiovascular: Denies: chest pain. GI: Reports: diarrhea. Genitourinary: Reports: hesitation. All Other Systems: Reviewed and Negative Exam & Diagnostic Data Last 24 Hrs of Vital Signs/I&O Vital Signs Date Time Temp Pulse Resp B/P B/P Pulse O2 O2 Flow FiO2 Mean Ox Delivery Rate 08/09 1505 97.7 92 26 95/50 98 08/09 0800 Nasal 3.0L Cannula 08/09 0638 98.2 78 20 94/52 95 Nasal Cannula 08/09 0000 Nasal 3.0L Cannula 08/08 2348 98.8 90 20 93 Nasal Cannula 08/08 2341 108/56 08/08 2226 Nasal 3.0L Cannula 08/08 2136 62 108/56 08/08 2014 79 102/50 08/08 1930 79 112/40 Intake & Output 08/09 1600 08/09 0800 08/09 0000 Intake Total 1098 374 0114 Output Total 500 250 850 Balance 900 275 500 Intake, IV 106 277 8583 Intake, Oral 600 100 100 Number 0 Bowel Movements Output, Urine 500 250 850 Physical Exam Other Physical Findings: MAXIMUM TEMPERATURE 100.5 on steroids. He is awake and alert in no acute distress. Skin scattered ecchymoses. HEENT negative. Neck is supple with no adenopathy. Chest Port-A-Cath in the left upper chest with no inflammation at the site. Lungs bilateral rhonchi. Heart regular rhythm with no murmur. Abdomen is soft, nontender with positive bowel sounds. Back no CVA tenderness. Extremities no cyanosis, clubbing or edema; multiple ulcerations on the toes of his right foot. Neuro is without focality. Last 24 Hours of Lab Results: Laboratory Tests 08/09 08/09 08/09 1556 0704 0623 Chemistry Sodium (137 - 145 mmol/L) Pending 137 Potassium (3.5 - 5.1 mmol/L) Pending 2.7 *L Chloride (98 - 107 mmol/L) Pending 102 Carbon Dioxide (22 - 30 mmol/L) Pending 26 Anion Gap (5 - 16) Pending 9 BUN (9 - 20 mg/dL) Pending 5 L Creatinine (0.7 - 1.2 mg/dL) Pending 0.4 L Estimated GFR (>60 ml/min) > 60 BUN/Creatinine Ratio (7 - 25 %) Pending 12.5 Magnesium (1.6 - 2.3 mg/dL) Pending 1.5 L Hematology CBC w Diff NO MAN DIFF REQ WBC (4.8 - 10.8 /CUMM) 9.4 RBC (4.70 - 6.10 /CUMM) 3.20 L Hgb (14.0 - 18.0 G/DL) 9.5 L Hct (42 - 52 %) 28.5 L MCV (80.0 - 94.0 FL) 89.1 MCH (27.0 - 31.0 PG) 29.6 RDW (11.5 - 14.5 %) 16.8 H Plt Count (130 - 400 /CUMM) 241 MPV (7.4 - 10.4 FL) 8.2 Gran % (42.2 - 75.2 %) 94.6 H Lymphocytes % (20.5 - 51.1 %) 3.4 L Monocytes % (1.7 - 9.3 %) 2.0 Eosinophils % (0 - 5 %) 0 Basophils % (0.0 - 2.0 %) 0 Absolute Granulocytes (1.4 - 6.5 /CUMM) 8.8 H Absolute Lymphocytes (1.2 - 3.4 /CUMM) 0.3 L Absolute Monocytes (0.10 - 0.60 /CUMM) 0.2 Absolute Eosinophils (0.0 - 0.7 /CUMM) 0 Absolute Basophils (0.0 - 0.2 /CUMM) 0 PUBS MCHC (33.0 - 37.0 G/DL) 33.2 08/08 1827 Chemistry Sodium (137 - 145 mmol/L) 135 L Cancelled Potassium (3.5 - 5.1 mmol/L) 3.0 L Cancelled Chloride (98 - 107 mmol/L) 101 Cancelled Carbon Dioxide (22 - 30 mmol/L) 23 Cancelled Anion Gap (5 - 16) 10 Cancelled BUN (9 - 20 mg/dL) 8 L Cancelled Creatinine (0.7 - 1.2 mg/dL) 0.4 L Cancelled Estimated GFR (>60 ml/min) > 60 BUN/Creatinine Ratio (7 - 25 %) 20.0 Cancelled Lactic Acid (0.7 - 2.1 mmol/L) 1.5 Phosphorus (2.5 - 4.5 mg/dL) 3.6 Cancelled Magnesium (1.6 - 2.3 mg/dL) 1.6 Cancelled Troponin I (<0.11 ng/ml) 0.05 Toxicology Digoxin (0.8 - 2.0 ng/mL) 0.6 L Last 24 Hours of Gaurav Results: Blood cultures 2 August 08 negative Rapid flu swab August 08 negative Urine culture August 08 greater than 100,000 colonies of gram-negative rods Urine Legionella antigen and strep pneumo antigen August 08 negative Diagnostic Data Recent Imaging Findings: CTA of the chest, abdomen and pelvis revealed no evidence of pulmonary embolism, increasing size of the right sided Pancoast tumor with chest wall extension and direct bone invasion, enlarging satellite lesion in the right lower lobe, with pleural seeding and an increasing right pleural effusion, multilobar pneumonia in the left lung and a hydropic gallbladder without stones. CT of the head showed no acute process,with stable metastasis in the left inferior cerebellum, with the left paracentral lobular and right inferior occipital lobe metastases not well-defined Assessment/Plan Assessment/Plan Impression: This is a 72-year-old man with a history of small cell lung cancer, with brain metastases, status post chemotherapy, discontinued 5 months prior to admission, with a Port-A-Cath still in place, and radiation treatments, discontinued 3 months prior to admission, maintained on Decadron for appetite stimulation, with a progressive decline in his status over the past 6 months, to the point where he is now bedbound, with decreased po intake, intermittent diarrhea and a chronic cough, admitted on August 08 with a worsening of his cough, increasing weakness and undocumented fevers, found to be hypoxic, febrile to 100.5, with a leukocytosis and with a CTA of the chest revealing multilobar densities in the left lung suggestive of pneumonia. His presentation is most suggestive of pneumonia. He appears to have improved, possibly secondary to a combination of IV fluids, stress steroids and antibiotics. He is currently on broad-spectrum antibiotics, but, once his cultures are finalized, his regimen should be able to be narrowed. He has other possible sources of infection, including the urinary tract, with a positive urine culture, though his negative urinalysis suggest this is a contamination, and the Port-A-Cath, though his blood cultures are so far negative. His overall prognosis is quite poor and discussion/ recommendations for hospice are noted. Suggestion: 1. Would attempt to obtain a sputum culture 2. Follow-up recent cultures 3. Discontinue Azithromycin 4. Decrease Vancomycin to 1 g IV every 24 hours pending above 5. Continue Ceftazidime pending above Consult Acknowledgment - Thank you for your consult request.
[2017-08-09 22:13] VITALS: BP 110/54
[2017-08-10 05:52] LABS: ABSOLUTE BASOPHIL COUNT 0 /CUMM (0.0-0.2); ABSOLUTE EOSINOPHIL COUNT 0 /CUMM (0.0-0.7); ABSOLUTE GRANULOCYTE CT 6.3 /CUMM (1.4-6.5); ABSOLUTE LYMPH COUNT 0.4 /CUMM (1.2-3.4); ABSOLUTE MONOCYTE COUNT 0.2 /CUMM (0.10-0.60); BASOPHIL % 0.1 % (0.0-2.0); EOSINOPHIL % 0 % (0-5); GRANULOCYTE % 90.1 % (42.2-75.2); HEMATOCRIT 27.8 % (42-52); MEAN CORPUSCULAR HGB 29.4 PG (27.0-31.0); MEAN CORPUSCULAR HGB CONC 32.9 G/DL (33.0-37.0); MEAN CORPUSCULAR VOLUME 89.4 FL (80.0-94.0); MEAN PLATELET VOLUME 8.1 FL (7.4-10.4); PLATELET COUNT 245 /CUMM (130-400); RBC DISTRIBUTION WIDTH 17.1 % (11.5-14.5); RED BLOOD CELL CT 3.11 /CUMM (4.70-6.10); WHITE BLOOD CELL COUNT 6.9 /CUMM (4.8-10.8)
[2017-08-10 06:35] VITALS: BP 110/60
--- NOTE | 2017-08-10 07:27 | PN- Housestaff ---
See Addendum Subjective Follow-up For: PNA Tele-Events Since Last Visit: Afib, 80-100 Subjective: No overnight events. Patient reports ilttle appetite but otherwise feels he's imporving. He is coughing a little. No CP. He is still expressing wishes to be full code, but is interested in home hospice options. Review of Systems Constitutional: Reports: no symptoms. EENTM: Reports: no symptoms. Cardiovascular: Reports: no symptoms. Respiratory: Reports: see HPI. Gastrointestinal: Reports: see HPI. Genitourinary: Reports: no symptoms. Musculoskeletal: Reports: no symptoms. Skin: Reports: no symptoms. Neurological/Psychological: Reports: no symptoms. Hematologic/Endocrine: Reports: no symptoms. Immunologic/Allergic: Reports: no symptoms. Objective Last 24 Hrs of Vital Signs/I&O Vital Signs Date Time Temp Pulse Resp B/P B/P Pulse O2 O2 Flow FiO2 Mean Ox Delivery Rate 08/10 0635 97.7 94 22 110/60 92 Room Air 08/10 0000 Room Air 08/09 2213 98.2 92 20 110/54 94 Room Air 08/09 1726 92 95/50 08/09 1716 95 Room Air Room Air 08/09 1505 97.7 92 26 95/50 98 08/09 0800 Nasal 3.0L Cannula Intake & Output 08/10 0800 08/10 0000 08/09 1600 Intake Total 545 559 2978 Output Total 450 190 500 Balance 390 740 900 Intake, IV 600 450 800 Intake, Oral 240 480 600 Number 1 0 Bowel Movements Output, Urine 450 190 500 Patient 165 lb Weight Physical Exam General Appearance: Alert, Oriented X3, Cooperative, No Acute Distress Cardiovascular: irregular Lungs: moderate wheezing and crackles, improved from yesterday Abdomen: Normal Bowel Sounds, Soft, No Tenderness Current Medications: Current Medications Sig/Mikey Start time Last Medication Dose Route Stop Time Status Admin Acetaminophen 650 MG Q6P PRN 08/08 1600 AC PO Albuterol Sulfate 3 ML EVERY 4 HRS/AWAKE 08/09 0800 AC 08/09 INH 2050 Azithromycin 500 MG DAILY 08/09 1000 DC 08/09 Sodium Chloride 250 ML IV 1142 Benzonatate 100 MG BID 08/08 1553 AC 08/09 PO 2146 Budesonide/ 2 PUF BID 08/08 1552 AC 08/09 Formoterol Fumarate INH 2146 Ceftazidime 1,000 MG IQ8 08/09 0000 AC 08/09 IV 2356 Cholecalciferol 1,000 IU DAILY 08/08 1553 AC 08/09 PO 0858 Dexamethasone 2 MG DAILY 08/10 1000 AC PO Digoxin 0.125 MG 1700 08/08 1700 AC 08/09 PO 1726 Enoxaparin Sodium 40 MG DAILY 08/09 1000 AC 08/09 SC 0901 Guaifenesin/Codeine 10 ML Q6-PRN PRN 08/08 1630 AC 08/09 Phosphate PO 2146 Hydrocortisone 100 MG Q8 08/08 1730 AC 08/10 Sodium Succinate IV 0504 Lorazepam 0.5 MG BID PRN 08/08 1600 AC 08/09 PO 08/15 1559 2359 Magnesium Chloride 128 MG ONCE ONE 08/10 0715 DC PO 08/10 0716 Magnesium Chloride 64 MG TID 08/08 1630 08/09 PO 2146 Magnesium Sulfate 1 GM Q2H 08/09 0945 DC 08/09 Dextrose/Water 100 ML IV 08/09 1344 1438 Patient Medication 1 ED ONE ONE 08/09 1145 DC Teaching ED 08/09 1146 Phosphate 500 MG Q6 08/10 0715 AC PO 08/10 1201 Potassium Chloride 40 MEQ ONCE ONE 08/09 1745 DC 08/09 PO 08/09 1746 2146 Potassium Chloride 10 MEQ Q1H 08/09 1745 DC 08/09 IV 08/09 1746 2121 Potassium Chloride 60 MEQ ONCE ONE 08/09 0945 DC 08/09 PO 08/09 0946 1136 Potassium Chloride 10 MEQ Q1H 08/09 0945 DC 08/09 IV 08/09 1046 1437 Potassium Chloride 40 MEQ Q13H 08/08 1545 AC 08/10 Sodium Chloride 1,000 ML IV 0212 Vancomycin HCl 1,000 MG DAILY 08/10 1000 AC Dextrose/Water 250 ML IV Vancomycin HCl 1,000 MG Q12 08/08 2230 DC 08/09 Dextrose/Water 250 ML IV 0858 Last 24 Hrs of Lab/Gaurav Results Last 24 Hrs of Labs/Mics: Laboratory Tests 08/10/17 0505: Anion Gap 8, Estimated GFR > 60, BUN/Creatinine Ratio 10.0, Phosphorus 1.6 L, Magnesium 1.5 L, CBC w Diff MAN DIFF ORDERED, RBC 3.11 L, MCV 89.4, MCH 29.4, RDW 17.1 H, MPV 8.1, Gran % 90.1 H, Lymphocytes % 6.3 L, Monocytes % 3.5, Eosinophils % 0, Basophils % 0.1, Absolute Granulocytes 6.3, Segmented Neutrophils 88 H, Absolute Lymphocytes 0.4 L, Lymphocytes 9 L, Monocytes 3, Absolute Monocytes 0.2, Absolute Eosinophils 0, Absolute Basophils 0, Platelet Estimate ADEQUATE, Polychromasia 1+, Hypochromic-Microcytic 1+, Poikilocytosis 1 +, Ovalocytes FEW, Stomatocytes 1+, PUBS MCHC 32.9 L, Fld Total RBCs Counted 100 08/09/17 1556: Anion Gap 12, Estimated GFR > 60, BUN/Creatinine Ratio 15.0, Magnesium 1.9 Microbiology 08/10 329 LOWER RESP: Respiratory Culture - RECD 08/10 329 LOWER RESP: Gram Stain - RECD 08/09 2131 LOWER RESP: Respiratory Culture - CAN Cancelled: NUMBER OF SQUAMOUS CELLS INDICATES POOR QUALITY SPECIMEN 08/09 2131 LOWER RESP: Gram Stain - CAN Cancelled: NUMBER OF SQUAMOUS CELLS INDICATES POOR QUALITY SPECIMEN Assessment/Plan Assessment: 72-year-old gentleman with past medical history of lung cancer most likely NSCC status post multiple chemotherapies and radiation with metastasis to the brain, distant MD but no stents or CABG? hypertension, hyperlipidemia, diabetes?, A. fib not on anticoagulation, GERD, last chemotherapy was February 2017 and radiation to the brain was April 2017 and patient did not follow up with oncology due to severe weakness and not being able to get out of the house, was brought by ambulance to hospital for severe coughing, G, diarrhea and weakness. Problem List: 1. Severe Sepsis 2. Multilobar pneumonia 3. Subtherapeutic digoxin 4. Electrolyte abnormalities #Severe sepsis secondary to multilobar pneumonia: Patient presents with productive cough, increased confusion, and shortness of breath. He was found to me 3/4 SIRS criteria (tachycardia, tachypnea, leukocytosis) with suspected source in lung, meeting criteria for sepsis with lactic acidosis. Lactic acid is trended down status post fluid resuscitation. He was initially started on ceftriaxone and azithromycin. However the patient became hypotensive last night and the antibiotic coverage was broadened to vancomycin and ceftazidine. He was given a stress dose of steroids and has since been hemodynamically stable. -Appreciate pulmonology recommendations -Follow cultures -Continue vancomycin, ceftazidine. Consider narrowing based on cultures -Hydrocortisone 50 mg every 8H - tapering -Guaifenesin -Budesonide/formoterol -Benzonatate -TRC nebs -Appreciate ID recommendations #Subtherapeutic digoxin: Digoxin level subtherapeutic. However heart rate has been normal. -CTM heart rate #Electronic abnormalities: Magnesium/K/phosphate was low. -Continue to monitor #Chronic medical problems: -Continue home magnesium, digoxin, lorazepam, cholecalciferol DVT prophylaxis with enoxaparin Consistent carbohydrate 2 diet Full code: Patient still wants to be full code per discussion this morning. He is interested in home hospice potentially. Problem List: 1. Pneumonia Pain Ratin Pain Location: none Pain Goal: Remain pain free Pain Plan: see a/p Tomorrow's Labs & Rationales: cbc, bep, phos, mg
--- NOTE | 2017-08-10 07:48 | PN- Oncology ---
Subjective Subjective: He feels a little better. He wants to go home and try to get better. He continues to want to be full code. Review of Systems: Constitutional: Reports: malaise, weakness. Denies: chills, fever. Cardiovascular: Denies: chest pain. Respiratory: Reports: cough, short of breath, sputum production, stable. GI: Denies: abdominal pain, diarrhea. Musculoskeletal: Reports: back pain. Neurological/Psychological: Reports: confusion, weakness (generalized). All Other Systems: Reviewed and Negative Objective Vital Signs and I&Os Vital Signs Date Time Temp Pulse Resp B/P B/P Pulse O2 O2 Flow FiO2 Mean Ox Delivery Rate 08/10 0635 97.7 94 22 110/60 92 Room Air 08/10 0000 Room Air 08/09 2213 98.2 92 20 110/54 94 Room Air 08/09 1726 92 95/50 08/09 1716 95 Room Air Room Air 08/09 1505 97.7 92 26 95/50 98 08/09 0800 Nasal 3.0L Cannula Intake & Output 08/10 0800 08/10 0000 08/09 1600 08/09 0800 08/09 0000 08/08 1600 Intake Total 602 416 7185 525 1350 2250 Output Total 450 190 500 250 850 340 Balance 390 740 900 530 004 3578 Intake, IV 600 450 511 404 8782 2250 Intake, Oral 240 480 600 100 100 0 Number 1 0 0 Bowel Movements Output, Urine 450 190 500 250 850 340 Patient 74.843 kg 82.27 kg 74.843 kg Weight Weight Brenda Lift Measurement Method Physical Exam: General Appearance: no apparent distress, comfortable, cachetic, thin Head: atraumatic Respiratory: chest non-tender, decreased breath sounds ( right lower lobe), crackles ( at bases) Cardiovascular: tachycardia Gastrointestinal: normal bowel sounds, soft, non-tender Extremities: no edema Neurologic/Psych: alert, oriented x 3 Cranial Nerves: normal speech Current Medications: Current Medications Sig/Mikey Start time Last Medication Dose Route Stop Time Status Admin Acetaminophen 650 MG Q6P PRN 08/08 1600 AC PO Albuterol Sulfate 3 ML EVERY 4 HRS/AWAKE 08/09 0800 AC 08/09 INH 2050 Azithromycin 500 MG DAILY 08/09 1000 DC 08/09 Sodium Chloride 250 ML IV 1142 Benzonatate 100 MG BID 01/17 1553 AC 08/09 PO 2146 Budesonide/ 2 PUF BID 08/08 1552 AC 08/09 Formoterol Fumarate INH 2146 Ceftazidime 1,000 MG IQ8 08/09 0000 AC 08/09 IV 2356 Cholecalciferol 1,000 IU DAILY 08/08 1553 AC 08/09 PO 0858 Dexamethasone 2 MG DAILY 08/10 1000 AC PO Digoxin 0.125 MG 1700 08/08 1700 AC 08/09 PO 1726 Enoxaparin Sodium 40 MG DAILY 08/09 1000 AC 08/09 SC 0901 Guaifenesin/Codeine 10 ML Q6-PRN PRN 08/08 1630 AC 08/09 Phosphate PO 2146 Hydrocortisone 100 MG Q8 08/08 1730 AC 08/10 Sodium Succinate IV 0504 Lorazepam 0.5 MG BID PRN 08/08 1600 AC 08/09 PO 08/15 1559 2359 Magnesium Chloride 128 MG ONCE ONE 08/10 0715 DC PO 08/10 0716 Magnesium Chloride 64 MG TID 08/08 1630 08/09 PO 2146 Magnesium Sulfate 1 GM Q2H 08/09 0945 DC 08/09 Dextrose/Water 100 ML IV 08/09 1344 1438 Patient Medication 1 ED ONE ONE 08/09 1145 DC Teaching ED 08/09 1146 Phosphate 500 MG Q6 08/10 0715 AC PO 08/10 1201 Potassium Chloride 40 MEQ ONCE ONE 08/09 1745 DC 08/09 PO 08/09 1746 2146 Potassium Chloride 10 MEQ Q1H 08/09 1745 DC 08/09 IV 08/09 1746 2121 Potassium Chloride 60 MEQ ONCE ONE 08/09 0945 DC 08/09 PO 08/09 0946 1136 Potassium Chloride 10 MEQ Q1H 08/09 0945 DC 08/09 IV 08/09 1046 1437 Potassium Chloride 40 MEQ Q13H 08/08 1545 AC 08/10 Sodium Chloride 1,000 ML IV 0212 Vancomycin HCl 1,000 MG DAILY 08/10 1000 AC Dextrose/Water 250 ML IV Vancomycin HCl 1,000 MG Q12 08/08 2230 DC 08/09 Dextrose/Water 250 ML IV 0858 Results Last 24 Hours of Lab Results: Laboratory Tests 08/10 08/09 0505 1556 Chemistry Sodium (137 - 145 mmol/L) 138 139 Potassium (3.5 - 5.1 mmol/L) 3.5 3.4 L Chloride (98 - 107 mmol/L) 104 104 Carbon Dioxide (22 - 30 mmol/L) 26 22 Anion Gap (5 - 16) 8 12 BUN (9 - 20 mg/dL) 4 L 6 L Creatinine (0.7 - 1.2 mg/dL) 0.4 L 0.4 L Estimated GFR (>60 ml/min) > 60 > 60 BUN/Creatinine Ratio (7 - 25 %) 10.0 15.0 Phosphorus (2.5 - 4.5 mg/dL) 1.6 L Magnesium (1.6 - 2.3 mg/dL) 1.5 L 1.9 Hematology CBC w Diff MAN DIFF ORDERED WBC (4.8 - 10.8 /CUMM) 6.9 RBC (4.70 - 6.10 /CUMM) 3.11 L Hgb (14.0 - 18.0 G/DL) 9.1 L Hct (42 - 52 %) 27.8 L MCV (80.0 - 94.0 FL) 89.4 MCH (27.0 - 31.0 PG) 29.4 RDW (11.5 - 14.5 %) 17.1 H Plt Count (130 - 400 /CUMM) 245 MPV (7.4 - 10.4 FL) 8.1 Gran % (42.2 - 75.2 %) 90.1 H Lymphocytes % (20.5 - 51.1 %) 6.3 L Monocytes % (1.7 - 9.3 %) 3.5 Eosinophils % (0 - 5 %) 0 Basophils % (0.0 - 2.0 %) 0.1 Absolute Granulocytes (1.4 - 6.5 /CUMM) 6.3 Segmented Neutrophils (42.2 - 75.2 %) 88 H Absolute Lymphocytes (1.2 - 3.4 /CUMM) 0.4 L Lymphocytes (20.5 - 51.1 %) 9 L Monocytes (1.7 - 9.3 %) 3 Absolute Monocytes (0.10 - 0.60 /CUMM) 0.2 Absolute Eosinophils (0.0 - 0.7 /CUMM) 0 Absolute Basophils (0.0 - 0.2 /CUMM) 0 Platelet Estimate (ADEQUATE) ADEQUATE Polychromasia 1+ Hypochromic-Microcytic 1+ Poikilocytosis 1+ Ovalocytes FEW Stomatocytes 1+ PUBS MCHC (33.0 - 37.0 G/DL) 32.9 L Other Body Source Fld Total RBCs Counted (%) 100 Assessment/Plan Assessment/Recommendations: Mr. Barraza is a 72-year-old male with metastatic small cell lung cancer, CAD, HLD, HTN, and atrial fibrillation who presented to the hospital with worsening fatigue, cough, and shortness of breath. He has been having progressively worsening weakness and has been basically bed-bound. On presentation, he was noted to be febrile, tachycardic, and hypotensive. Symptomatically improved with fluid resuscitation. CT imaging of the chest, abdomen, and pelvis demonstrated worsening right-sided lung disease, right pleural effusion, and new multi lobular pneumonia on the left side. He has been admitted and has been started on IV fluid with along with antibiotics. He is feeling better. He is doing well on room air. He wants to go home with home health nursing. He wants to remain full code. He does not want hospice at the moment. Overall, prognosis is poor along with poor performance status. He would not be a candidate for therapy. I have discussed hospice with patient but he declined this for now. For now he will continue with current level of care. Recommendations: 1. multilobular pneumonia - continue antibiotics as per primary team - incentive spirometer - follow up ID recommendations 2. metastatic small-cell lung cancer - may need reimaging of the brain - continue dexamethasone 2 mg daily - discussed overall goals of care and recommended home health with transition to hospice if patient is amenable Please call [phone] with any questions or concerns. Problem List: 1. Metastasis 2. Pneumonia 3. Small cell carcinoma of lung
[2017-08-10 12:02] VITALS: BP 114/62
--- NOTE | 2017-08-10 12:06 | RADIOLOGY REPORT ---
EXAMINATION: XR CHEST CLINICAL INFORMATION: Shortness of breath. Pleural effusion. COMPARISON: Chest done on 02/28/[address] of the chest done on 08/08/2017. TECHNIQUE: 2 views of the chest were obtained. FINDINGS: Previously documented, clinically known right upper lobar lung mass appears to have increased in size since 02/28/2017. Bilateral small pleural effusions are noted, best seen on the lateral projection. There is a left-sided Port-A-Cath present with its tip seen projecting at the cavoatrial junction. Interval development of nonspecific patchy airspace disease is noted at left lower lobe, may represent developing pneumonia. Subtle linear sclerosis is seen projecting along the posterolateral aspect of the left 5th rib, appears new. IMPRESSION: The right upper lobar lung mass appears increased in size since 02/28/2017. There is interval development of small bilateral pleural effusions and nonspecific patchy left lower lobar airspace disease and subtle area of sclerosis involving the posterolateral aspect of the left 5th rib.
--- NOTE | 2017-08-10 12:49 | PN- Pulmonary ---
Subjective HPI/Critical Care Issues: Patient seen and examined this morning. He appears to be doing much better as far as his mental status is concerned and blood pressure stable. Objective Current Medications: Current Medications Sig/Mikey Start time Last Medication Dose Route Stop Time Status Admin Acetaminophen 650 MG Q6P PRN 08/08 1600 AC PO Albuterol Sulfate 3 ML EVERY 4 HRS/AWAKE 08/09 0800 AC 08/10 INH 1204 Azithromycin 500 MG DAILY 08/09 1000 DC 08/09 Sodium Chloride 250 ML IV 1142 Benzonatate 100 MG BID 08/08 1553 AC 08/10 PO 0937 Budesonide/ 2 PUF BID 08/08 1552 AC 08/10 Formoterol Fumarate INH 0925 Ceftazidime 1,000 MG IQ8 08/09 0000 AC 08/10 IV 0803 Cholecalciferol 1,000 IU DAILY 08/08 1553 AC 08/10 PO 0923 Dexamethasone 2 MG DAILY 08/10 1000 AC 08/10 PO 0923 Digoxin 0.125 MG 1700 08/08 1700 AC 08/09 PO 1726 Enoxaparin Sodium 40 MG DAILY 08/09 1000 AC 08/10 SC 0923 Guaifenesin/Codeine 10 ML Q6-PRN PRN 08/08 1630 AC 08/09 Phosphate PO 2146 Hydrocortisone 50 MG Q8 08/10 1400 AC Sodium Succinate IV Hydrocortisone 100 MG Q8 08/08 1730 DC 08/10 Sodium Succinate IV 0504 Insulin Aspart 0 TIDAC 08/10 1700 AC SC Lorazepam 0.5 MG BID PRN 08/08 1600 AC 08/10 PO 08/15 1559 0935 Magnesium Chloride 128 MG ONCE ONE 08/10 0715 DC 08/10 PO 08/10 0716 0922 Magnesium Chloride 64 MG TID 08/08 1630 AC 08/10 PO 0923 Magnesium Sulfate 1 GM Q2H 08/09 0945 DC 08/09 Dextrose/Water 100 ML IV 08/09 1344 1438 Metoprolol Tartrate 12.5 MG BID 08/10 1000 AC 08/10 PO 1205 Phosphate 500 MG Q6 08/10 0715 DC 08/10 PO 08/10 1201 1204 Potassium Chloride 40 MEQ ONCE ONE 08/09 1745 DC 08/09 PO 08/09 1746 2146 Potassium Chloride 10 MEQ Q1H 08/09 1745 DC 08/09 IV 08/09 1746 2121 Potassium Chloride 40 MEQ Q13H 08/08 1545 DC 08/10 Sodium Chloride 1,000 ML IV 0212 Vancomycin HCl 1,000 MG DAILY 08/10 1000 AC 08/10 Dextrose/Water 250 ML IV 0924 Vancomycin HCl 1,000 MG Q12 08/08 2230 DC 08/09 Dextrose/Water 250 ML IV 0858 Vital Signs & I&O Last 24 Hrs of Vitals and I&O: Vital Signs Date Time Temp Pulse Resp B/P B/P Pulse O2 O2 Flow FiO2 Mean Ox Delivery Rate 08/10 1205 81 114/62 08/10 1202 81 114/62 08/10 0809 94 Room Air 08/10 0800 Room Air 08/10 0635 97.7 94 22 110/60 92 Room Air 08/10 0000 Room Air 08/09 2213 98.2 92 20 110/54 94 Room Air 08/09 1726 92 95/50 08/09 1716 95 Room Air Room Air 08/09 1505 97.7 92 26 95/50 98 Intake & Output 08/10 1600 08/10 0800 08/10 0000 Intake Total 840 930 Output Total 450 190 Balance 390 740 Intake, IV 600 450 Intake, Oral 240 480 Number 1 0 Bowel Movements Output, Urine 450 190 Patient 165 lb Weight Exam Other Physical Findings: gen awake heent steroid changes to face cvs s1, s2 lungs bilateral rhonchi abd soft, bs+ port in place ext without edema Results Last 24 Hrs of Lab Results: Laboratory Tests 08/10/17 0505: Anion Gap 8, Estimated GFR > 60, BUN/Creatinine Ratio 10.0, Phosphorus 1.6 L, Magnesium 1.5 L, CBC w Diff MAN DIFF ORDERED, RBC 3.11 L, MCV 89.4, MCH 29.4, RDW 17.1 H, MPV 8.1, Gran % 90.1 H, Lymphocytes % 6.3 L, Monocytes % 3.5, Eosinophils % 0, Basophils % 0.1, Absolute Granulocytes 6.3, Segmented Neutrophils 88 H, Absolute Lymphocytes 0.4 L, Lymphocytes 9 L, Monocytes 3, Absolute Monocytes 0.2, Absolute Eosinophils 0, Absolute Basophils 0, Platelet Estimate ADEQUATE, Polychromasia 1+, Hypochromic-Microcytic 1+, Poikilocytosis 1 +, Ovalocytes FEW, Stomatocytes 1+, PUBS MCHC 32.9 L, Fld Total RBCs Counted 100 08/09/17 1556: Anion Gap 12, Estimated GFR > 60, BUN/Creatinine Ratio 15.0, Magnesium 1.9 Impression/Plan Impression/Plan Impression/Plan: Impression 72 year old man * 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 a very poor prognosis was discussed. he remains full code, however this will continue to be addressed. in the meantime if there is a significant deterioration the family may consider moving to a conservative management if the circumstances permit -TRC/Nebs -electrolyte repletion as necessary DVT prophylaxis at all times
--- NOTE | 2017-08-10 14:31 | PN- Infect Dx ---
Subjective Subjective: Afebrile on steroids. He feels well with no complaints. Objective Last 24 Hrs of Vital Signs/I&O Vital Signs Date Time Temp Pulse Resp B/P B/P Pulse O2 O2 Flow FiO2 Mean Ox Delivery Rate 08/10 1205 81 114/62 08/10 1202 81 114/62 08/10 0809 94 Room Air 08/10 0800 Room Air 08/10 0635 97.7 94 22 110/60 92 Room Air 08/10 0000 Room Air 08/09 2213 98.2 92 20 110/54 94 Room Air 08/09 1726 92 95/50 08/09 1716 95 Room Air Room Air 08/09 1505 97.7 92 26 95/50 98 Intake & Output 08/10 1600 08/10 0800 08/10 0000 Intake Total 1023.5 840 930 Output Total 400 450 190 Balance 623.5 390 740 Intake, IV 543.5 600 450 Intake, Oral 480 240 480 Number 2 1 0 Bowel Movements Output, Urine 400 450 190 Patient 165 lb Weight Physical Exam Other Physical Findings: He appears comfortable in no acute distress Chest Port-A-Cath in the left upper chest with no inflammation at the site Lungs crackles at the left base with scattered rhonchi Heart regular rhythm with no murmur Extremities no cyanosis, clubbing or edema Results Last 24 Hours of Lab Results: Laboratory Tests 08/10 08/09 0505 1556 Chemistry Sodium (137 - 145 mmol/L) 138 139 Potassium (3.5 - 5.1 mmol/L) 3.5 3.4 L Chloride (98 - 107 mmol/L) 104 104 Carbon Dioxide (22 - 30 mmol/L) 26 22 Anion Gap (5 - 16) 8 12 BUN (9 - 20 mg/dL) 4 L 6 L Creatinine (0.7 - 1.2 mg/dL) 0.4 L 0.4 L Estimated GFR (>60 ml/min) > 60 > 60 BUN/Creatinine Ratio (7 - 25 %) 10.0 15.0 Phosphorus (2.5 - 4.5 mg/dL) 1.6 L Magnesium (1.6 - 2.3 mg/dL) 1.5 L 1.9 Hematology CBC w Diff MAN DIFF ORDERED WBC (4.8 - 10.8 /CUMM) 6.9 RBC (4.70 - 6.10 /CUMM) 3.11 L Hgb (14.0 - 18.0 G/DL) 9.1 L Hct (42 - 52 %) 27.8 L MCV (80.0 - 94.0 FL) 89.4 MCH (27.0 - 31.0 PG) 29.4 RDW (11.5 - 14.5 %) 17.1 H Plt Count (130 - 400 /CUMM) 245 MPV (7.4 - 10.4 FL) 8.1 Gran % (42.2 - 75.2 %) 90.1 H Lymphocytes % (20.5 - 51.1 %) 6.3 L Monocytes % (1.7 - 9.3 %) 3.5 Eosinophils % (0 - 5 %) 0 Basophils % (0.0 - 2.0 %) 0.1 Absolute Granulocytes (1.4 - 6.5 /CUMM) 6.3 Segmented Neutrophils (42.2 - 75.2 %) 88 H Absolute Lymphocytes (1.2 - 3.4 /CUMM) 0.4 L Lymphocytes (20.5 - 51.1 %) 9 L Monocytes (1.7 - 9.3 %) 3 Absolute Monocytes (0.10 - 0.60 /CUMM) 0.2 Absolute Eosinophils (0.0 - 0.7 /CUMM) 0 Absolute Basophils (0.0 - 0.2 /CUMM) 0 Platelet Estimate (ADEQUATE) ADEQUATE Polychromasia 1+ Hypochromic-Microcytic 1+ Poikilocytosis 1+ Ovalocytes FEW Stomatocytes 1+ PUBS MCHC (33.0 - 37.0 G/DL) 32.9 L Other Body Source Fld Total RBCs Counted (%) 100 Last 24 Hours of Gaurav Results: Blood cultures 2 August 08 negative Urine culture August 08 greater than 100,000 colonies of Escherichia coli resistant to Ampicillin, Unasyn, Gentamicin and Bactrim Sputum culture August 10 pending, with gram stain revealing moderate white cells, few gram positive cocci, few gram-positive rods and few yeast Recent Imaging Studies: Chest x-ray August 10 reveals an increase in size of the right upper lobe mass, with interval development of small bilateral pleural effusions and nonspecific patchy left lower lobe airspace disease Assessment/Plan Impression: Stable with temperatures normal (on steroids) and white blood cell count also normal on Vancomycin and Ceftazidime Day 2 of treatment for a left lower lobe pneumonia in this patient with small cell cancer of the lung, metastatic to the brain. The positive urine culture likely represents a contaminant with no urinary symptoms and a negative urinalysis. Suggestion: 1. Follow-up sputum culture 2. Continue Vancomycin and Ceftazidime pending above
[2017-08-10 15:36] VITALS: BP 122/64
[2017-08-10 16:23] VITALS: BP 100/68
[2017-08-10 23:33] VITALS: BP 100/62
[2017-08-11 07:00] VITALS: BP 104/68
[2017-08-11 07:01] LABS: ABSOLUTE BASOPHIL COUNT 0 /CUMM (0.0-0.2); ABSOLUTE EOSINOPHIL COUNT 0 /CUMM (0.0-0.7); ABSOLUTE GRANULOCYTE CT 5.9 /CUMM (1.4-6.5); ABSOLUTE LYMPH COUNT 0.5 /CUMM (1.2-3.4); ABSOLUTE MONOCYTE COUNT 0.2 /CUMM (0.10-0.60); BASOPHIL % 0 % (0.0-2.0); EOSINOPHIL % 0.1 % (0-5); GRANULOCYTE % 88.5 % (42.2-75.2); HEMATOCRIT 30.1 % (42-52); MEAN CORPUSCULAR HGB 29.6 PG (27.0-31.0); MEAN CORPUSCULAR HGB CONC 33.2 G/DL (33.0-37.0); MEAN CORPUSCULAR VOLUME 89.3 FL (80.0-94.0); MEAN PLATELET VOLUME 7.9 FL (7.4-10.4); PLATELET COUNT 262 /CUMM (130-400); RBC DISTRIBUTION WIDTH 16.9 % (11.5-14.5); RED BLOOD CELL CT 3.37 /CUMM (4.70-6.10); WHITE BLOOD CELL COUNT 6.6 /CUMM (4.8-10.8)
--- NOTE | 2017-08-11 08:38 | PN- Housestaff ---
Lala ADAN,Madan 08/11/17 0837: Subjective Follow-up For: PNA Tele-Events Since Last Visit: Afiv 70-110 Subjective: No overnight events. He feels good, thinks his breathing is good. No CP.Interested in home hospice. Review of Systems Constitutional: Reports: no symptoms. EENTM: Reports: no symptoms. Cardiovascular: Reports: no symptoms. Respiratory: Reports: see HPI. Gastrointestinal: Reports: no symptoms. Genitourinary: Reports: no symptoms. Musculoskeletal: Reports: no symptoms. Skin: Reports: no symptoms. Neurological/Psychological: Reports: no symptoms. Hematologic/Endocrine: Reports: no symptoms. Immunologic/Allergic: Reports: no symptoms. Objective Last 24 Hrs of Vital Signs/I&O Vital Signs Date Time Temp Pulse Resp B/P B/P Pulse O2 O2 Flow FiO2 Mean Ox Delivery Rate 08/11 0700 98.3 86 20 104/68 91 08/10 2333 97.8 68 22 100/62 92 08/10 2241 84 102/70 08/10 1627 95 100/68 08/10 1623 95 100/68 08/10 1606 94 Room Air 08/10 1536 97.6 87 20 122/64 95 08/10 1205 81 114/62 08/10 1202 81 114/62 Intake & Output 08/11 1600 08/11 0800 08/11 0000 Intake Total 260 Output Total Balance 260 Intake, IV 20 Intake, Oral 240 Physical Exam General Appearance: Alert, Oriented X3, Cooperative, No Acute Distress Cardiovascular: irregular Lungs: mild wheezing Abdomen: Normal Bowel Sounds, Soft, No Tenderness Extremities: No Edema Current Medications: Current Medications Sig/Mikey Start time Last Medication Dose Route Stop Time Status Admin Acetaminophen 650 MG Q6P PRN 08/08 1600 DC PO Albuterol Sulfate 3 ML EVERY 4 HRS/AWAKE 08/09 0800 AC 08/11 INH 0800 Benzonatate 100 MG BID 08/08 1553 AC 08/10 PO 2241 Budesonide/ 2 PUF BID 08/08 1552 AC 08/10 Formoterol Fumarate INH 2242 Ceftazidime 1,000 MG IQ8 08/09 0000 AC 08/11 IV 0033 Cholecalciferol 1,000 IU DAILY 08/08 1553 AC 08/10 PO 0923 Dexamethasone 2 MG DAILY 08/10 1000 AC 08/10 PO 0923 Digoxin 0.125 MG 1700 08/08 1700 AC 08/10 PO 1627 Enoxaparin Sodium 40 MG DAILY 08/09 1000 AC 08/10 SC 0923 Guaifenesin/Codeine 10 ML Q6-PRN PRN 08/08 1630 AC 08/10 Phosphate PO 2242 Hydrocortisone 50 MG Q8 08/10 1400 AC 08/11 [place] 0632 Hydrocortisone 100 MG Q8 08/08 1730 DC 08/10 Sodium Succinate IV 0504 Insulin Aspart 0 TIDAC 08/10 1700 AC 08/10 SC 1748 Loperamide HCl 2 MG Q3P PRN 08/10 1400 AC 08/10 PO 2242 Lorazepam 0.5 MG BID PRN 08/08 1600 AC 08/10 PO 08/15 1559 2241 Magnesium Chloride 64 MG TID 08/08 1630 AC 08/10 PO 2241 Metoprolol Tartrate 12.5 MG BID 08/10 1000 AC 08/10 PO 2241 Phosphate 500 MG Q6 08/10 0715 DC 08/10 PO 08/10 1201 1204 Potassium Chloride 60 MEQ ONCE ONE 08/10 1300 CAN PO 08/10 1301 Potassium Chloride 40 MEQ ONCE ONE 08/10 1300 DC 08/10 PO 08/10 1301 1310 Potassium Chloride 40 MEQ Q13H 08/08 1545 DC 08/10 Sodium Chloride 1,000 ML IV 0212 Vancomycin HCl 1,000 MG DAILY 08/11 1000 Sodium Chloride 250 ML IV Vancomycin HCl 1,000 MG DAILY 08/10 1000 DC 08/10 Dextrose/Water 250 ML IV 0924 Last 24 Hrs of Lab/Gaurav Results Last 24 Hrs of Labs/Mics: Laboratory Tests 08/11/17 0640: Sodium Pending, Potassium Pending, Chloride Pending, Carbon Dioxide Pending, Anion Gap Pending, BUN Pending, Creatinine Pending, BUN/Creatinine Ratio Pending , Phosphorus Pending, Magnesium Pending, CBC w Diff NO MAN DIFF REQ, RBC 3.37 L , MCV 89.3, MCH 29.6, RDW 16.9 H, MPV 7.9, Gran % 88.5 H, Lymphocytes % 7.6 L , Monocytes % 3.8, Eosinophils % 0.1, Basophils % 0, Absolute Granulocytes 5.9, Absolute Lymphocytes 0.5 L, Absolute Monocytes 0.2, Absolute Eosinophils 0, Absolute Basophils 0, PUBS MCHC 33.2 01/19/18 1800: Phosphorus Cancelled Assessment/Plan Assessment: 72-year-old gentleman with past medical history of lung cancer 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 hypertension, hyperlipidemia, diabetes?, A. fib not on anticoagulation, GERD, last chemotherapy was February 2017 and radiation to the brain was April 2017 and patient did not follow up with oncology due to severe weakness and not being able to get out of the house, was brought by ambulance to hospital for severe coughing, G, diarrhea and weakness. Problem List: 1. Severe Sepsis 2. Multilobar pneumonia 3. Subtherapeutic digoxin 4. Electrolyte abnormalities #Severe sepsis secondary to multilobar pneumonia: Patient presents with productive cough, increased confusion, and shortness of breath. He was found to me 3/4 SIRS criteria (tachycardia, tachypnea, leukocytosis) with suspected source in lung, meeting criteria for sepsis with lactic acidosis. Lactic acid is trended down status post fluid resuscitation. He was initially started on ceftriaxone and azithromycin. However the patient became hypotensive last night and the antibiotic coverage was broadened to vancomycin and ceftazidine. He was given a stress dose of steroids and has since been hemodynamically stable. -Appreciate pulmonology recommendations -Follow cultures -Continue vancomycin, ceftazidine. Consider narrowing based on cultures -Hydrocortisone 50 mg every 12H - tapering -Guaifenesin -Budesonide/formoterol -Benzonatate -TRC nebs -Appreciate ID recommendations #Subtherapeutic digoxin: Digoxin level subtherapeutic. However heart rate has been normal. -CTM heart rate #Electronic abnormalities: His magnesium, potassium, and phosphate have been very low.- -Start regular potassium, magnesium supplementation -Continue to monitor #Chronic medical problems: -Continue home magnesium, digoxin, lorazepam, cholecalciferol -Home hospice evaluation DVT prophylaxis with enoxaparin Consistent carbohydrate 2 diet Full code: Patient still wants to be full code per discussion this morning. He is interested in home hospice potentially. Problem List: 1. 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 a very poor prognosis was discussed. he remains full code, however this will continue to be addressed. in the meantime if there is a significant deterioration the family may consider moving to a conservative management if the circumstances permit -TRC/Nebs -electrolyte repletion as necessary -remain on telemetry given signficant hypokalemia and chronic hypomagnesemia DVT prophylaxis at all times
[2017-08-12 04:56] LABS: ABSOLUTE BASOPHIL COUNT 0 /CUMM (0.0-0.2); ABSOLUTE EOSINOPHIL COUNT 0.2 /CUMM (0.0-0.7); ABSOLUTE GRANULOCYTE CT 6.6 /CUMM (1.4-6.5); ABSOLUTE LYMPH COUNT 0.6 /CUMM (1.2-3.4); ABSOLUTE MONOCYTE COUNT 0.2 /CUMM (0.10-0.60); BASOPHIL % 0.1 % (0.0-2.0); EOSINOPHIL % 2.2 % (0-5); HEMATOCRIT 34.5 % (42-52); MEAN CORPUSCULAR HGB 29.4 PG (27.0-31.0); MEAN CORPUSCULAR HGB CONC 33.2 G/DL (33.0-37.0); MEAN CORPUSCULAR VOLUME 88.7 FL (80.0-94.0); MEAN PLATELET VOLUME 8.2 FL (7.4-10.4); PLATELET COUNT 296 /CUMM (130-400); RBC DISTRIBUTION WIDTH 17.1 % (11.5-14.5); RED BLOOD CELL CT 3.89 /CUMM (4.70-6.10); WHITE BLOOD CELL COUNT 7.5 /CUMM (4.8-10.8)
[2017-08-12 06:00] VITALS: BP 122/84
--- NOTE | 2017-08-12 08:53 | PN- Housestaff ---
Tres Bhardwaj MD,Ami 08/12/17 0853: Subjective Follow-up For: PNA Tele-Events Since Last Visit: no tele Subjective: Patient visited today, was lying in bed comfortably in no acute distress, was awake but not oriented X3. was at the bedside. No fever or chills, no chest pain, was combative overnight and sitter was placed. Had nausea, zofran adminsitered and abd xray obtained. Discussed plan of care with the attending and plan to further elaborate tomorrow. Review of Systems Constitutional: Reports: see HPI. Objective Last 24 Hrs of Vital Signs/I&O Vital Signs Date Time Temp Pulse Resp B/P B/P Pulse O2 O2 Flow FiO2 Mean Ox Delivery Rate 08/12 1907 92 Room Air 08/12 1834 80 112/60 08/12 1400 98.3 80 20 112/60 96 Room Air 08/12 0931 92 Room Air Room Air 08/12 0902 67 122/84 08/12 0800 Room Air 08/12 0600 98.8 67 20 122/84 91 08/11 2200 95 Room Air 08/11 2145 82 118/64 Intake & Output 08/12 1600 08/12 0800 08/12 0000 Intake Total 750 Output Total 900 250 Balance -150 -250 Intake, Oral 750 Number 1 1 Bowel Movements Output, Urine 900 250 Physical Exam General Appearance: No Acute Distress, awake, not oriented, not cooperative Skin: skin lesions, RUE echymosis Skin Temp/Moisture Exam: Warm/Dry Sepsis Skin Exam (color): Normal for Ethnicity HEENT: Atraumatic Cardiovascular: irreg Assessment/Plan Assessment: 72-year-old gentleman with past medical history of 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 hypertension, hyperlipidemia, diabetes?, A. fib not on anticoagulation, GERD, last chemotherapy was February 2017 and radiation to the brain was April 2017 and patient did not follow up with oncology due to severe weakness and not being able to get out of the house, was brought by ambulance to hospital for severe coughing, G, diarrhea and weakness. Problem List: 1. Severe Sepsis 2. Multilobar pneumonia 3. Subtherapeutic digoxin 4. Electrolyte abnormalities #Severe sepsis secondary to multilobar pneumonia: Patient presents with productive cough, increased confusion, and shortness of breath. He was found to me 3/4 SIRS criteria (tachycardia, tachypnea, leukocytosis) with suspected source in lung, meeting criteria for sepsis with lactic acidosis. Lactic acid is trended down status post fluid resuscitation. He was initially started on ceftriaxone and azithromycin. However the patient became hypotensive last night and the antibiotic coverage was broadened to vancomycin and ceftazidine. He was given a stress dose of steroids and has since been hemodynamically stable. -Appreciate pulmonology recommendations -Follow cultures -stop AB according to ID -Hydrocortisone 50 mg every 12H - tapering -Guaifenesin -Budesonide/formoterol -Benzonatate -TRC nebs -Appreciate ID recommendations #Subtherapeutic digoxin: Digoxin level subtherapeutic. However heart rate has been normal. -CTM heart rate #Electronic abnormalities: His magnesium, potassium, and phosphate have been very low.- -Start regular potassium, magnesium supplementation -Continue to monitor #Nausea or vomiting Relatively new, although it can be related to cancer but we obtained abdominal x -ray abd xray: gas though out intestin - Zofran PRN - continue to monitor #Chronic medical problems: -Continue home magnesium, digoxin, lorazepam, cholecalciferol -Home hospice evaluation DVT prophylaxis with enoxaparin Consistent carbohydrate 2 diet Full code: Patient still wants to be full code per discussion this morning. He is interested in home hospice potentially. Problem List: 1. Metastasis 2. Pneumonia 3. Small cell carcinoma of lung 4. 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 a very poor prognosis was discussed. he remains full code, however this will continue to be addressed. in the meantime if there is a significant deterioration the family may consider moving to a conservative management if the circumstances permit -TRC/Nebs -electrolyte repletion as necessary -remain on telemetry given signficant hypokalemia and chronic hypomagnesemia DVT prophylaxis at all times
--- NOTE | 2017-08-12 10:24 | PN- Infect Dx ---
Subjective Subjective: Afebrile on steroids. He complains of nausea. He had one loose stool reported overnight. Objective Last 24 Hrs of Vital Signs/I&O Vital Signs Date Time Temp Pulse Resp B/P B/P Pulse O2 O2 Flow FiO2 Mean Ox Delivery Rate 08/12 0931 92 Room Air Room Air 08/12 0902 67 122/84 08/12 0600 98.8 67 20 122/84 91 08/11 2200 95 Room Air 08/11 2145 82 118/64 08/11 1550 86 104/68 08/11 1145 94 Room Air Room Air Intake & Output 08/12 1600 08/12 0800 08/12 0000 Intake Total Output Total 250 Balance -250 Number 1 Bowel Movements Output, Urine 250 Physical Exam Other Physical Findings: He is awake and alert in no acute distress Chest Port-A-Cath in the left chest with no inflammation at the site Lungs scattered rhonchi bilaterally Heart irregular rhythm with no murmur Abdomen is distended, nontender with positive bowel sounds Extremities no cyanosis, clubbing or edema Results Last 24 Hours of Lab Results: Laboratory Tests 08/12 0400 Chemistry Sodium (137 - 145 mmol/L) 140 Potassium (3.5 - 5.1 mmol/L) 3.1 L Chloride (98 - 107 mmol/L) 97 L Carbon Dioxide (22 - 30 mmol/L) 33 H Anion Gap (5 - 16) 10 BUN (9 - 20 mg/dL) 2 L Creatinine (0.7 - 1.2 mg/dL) 0.3 L Estimated GFR (>60 ml/min) > 60 BUN/Creatinine Ratio (7 - 25 %) 6.7 L Phosphorus (2.5 - 4.5 mg/dL) 1.7 L Magnesium (1.6 - 2.3 mg/dL) 1.3 L Hematology CBC w Diff NO MAN DIFF REQ WBC (4.8 - 10.8 /CUMM) 7.5 RBC (4.70 - 6.10 /CUMM) 3.89 L Hgb (14.0 - 18.0 G/DL) 11.4 L Hct (42 - 52 %) 34.5 L MCV (80.0 - 94.0 FL) 88.7 MCH (27.0 - 31.0 PG) 29.4 RDW (11.5 - 14.5 %) 17.1 H Plt Count (130 - 400 /CUMM) 296 MPV (7.4 - 10.4 FL) 8.2 Gran % (42.2 - 75.2 %) 87.0 H Lymphocytes % (20.5 - 51.1 %) 7.5 L Monocytes % (1.7 - 9.3 %) 3.2 Eosinophils % (0 - 5 %) 2.2 Basophils % (0.0 - 2.0 %) 0.1 Absolute Granulocytes (1.4 - 6.5 /CUMM) 6.6 H Absolute Lymphocytes (1.2 - 3.4 /CUMM) 0.6 L Absolute Monocytes (0.10 - 0.60 /CUMM) 0.2 Absolute Eosinophils (0.0 - 0.7 /CUMM) 0.2 Absolute Basophils (0.0 - 0.2 /CUMM) 0 PUBS MCHC (33.0 - 37.0 G/DL) 33.2 Last 24 Hours of Gaurav Results: Sputum culture August 10 scant mixed iam with light growth of yeast Blood cultures 2 August 08 negative Assessment/Plan Impression: Stable with temperatures and white blood cell count remaining normal (on steroids) on Vancomycin and Ceftazidime Day 4 of treatment for a left lower lobe pneumonia in this patient with small cell cancer of the lung, metastatic to the brain. His nausea and diarrhea could be related to antibiotics but, with his recent diarrhea, C. difficile should be ruled out. He has apparently elected to go on home hospice; therefore further aggressive evaluation would not be indicated. Suggestion: 1. Stool for C. difficile 2. Discontinue Vancomycin and Ceftazidime and follow off antibiotics
--- NOTE | 2017-08-12 11:40 | RADIOLOGY REPORT ---
EXAMINATION: XR PORTABLE ABDOMEN CLINICAL INFORMATION: Nausea and vomiting. Sepsis. COMPARISON: Selected images CT abdomen pelvis 08/08/2017. TECHNIQUE: Portable AP supine of the abdomen. FINDINGS: The examination excludes the lateral right abdomen. Mild small bowel distention is seen and gas is visualized in the large bowel which is nondilated. Findings could reflect ileus and are nonspecific. Heavy atherosclerotic calcifications are seen in the abdominal aorta and both iliac arteries. IMPRESSION: Gas is seen throughout the small and large bowel with minimal small bowel dilatation. No focal findings identified.
[2017-08-12 14:00] VITALS: BP 112/60
[2017-08-12 23:14] VITALS: BP 102/78
[2017-08-13 06:00] VITALS: BP 108/64
--- NOTE | 2017-08-13 07:32 | PN- Housestaff ---
See Addendum Subjective Follow-up For: PNA Tele-Events Since Last Visit: not ontele Subjective: No overnight events. Didn't sleep well. He is asking for the hospice nurse to explain home hospice options. Otherwise, no SOB or CP. Review of Systems Constitutional: Reports: no symptoms. EENTM: Reports: no symptoms. Cardiovascular: Reports: no symptoms. Respiratory: Reports: no symptoms. Gastrointestinal: Reports: no symptoms. Genitourinary: Reports: no symptoms. Musculoskeletal: Reports: no symptoms. Skin: Reports: no symptoms. Neurological/Psychological: Reports: no symptoms. Hematologic/Endocrine: Reports: no symptoms. Immunologic/Allergic: Reports: no symptoms. Objective Last 24 Hrs of Vital Signs/I&O Vital Signs Date Time Temp Pulse Resp B/P B/P Pulse O2 O2 Flow FiO2 Mean Ox Delivery Rate 08/13 0000 Room Air 08/12 2314 98.6 70 22 102/78 92 08/12 2221 70 100/50 08/12 1907 92 Room Air 08/12 1834 80 112/60 08/12 1400 98.3 80 20 112/60 96 Room Air 08/12 0931 92 Room Air Room Air 08/12 0902 67 122/84 08/12 0800 Room Air Intake & Output 08/13 0800 08/13 0000 08/12 1600 Intake Total 750 Output Total 900 Balance -150 Intake, Oral 750 Number 1 Bowel Movements Output, Urine 900 Physical Exam General Appearance: Alert, Oriented X3, Cooperative, No Acute Distress Cardiovascular: Regular Rate, Normal S1, Normal S2 Lungs: moderate crackles Abdomen: Normal Bowel Sounds, Soft, No Tenderness Extremities: No Edema Current Medications: Current Medications Sig/Mikey Start time Last Medication Dose Route Stop Time Status Admin Albuterol Sulfate 3 ML BID 08/12 1000 AC 08/12 INH 1907 Benzonatate 100 MG BID 08/08 1553 AC 08/12 PO 2220 Budesonide/ 2 PUF BID 08/08 1552 AC 08/12 Formoterol Fumarate INH 2220 Ceftazidime 1,000 MG IQ8 08/09 0000 DC 08/12 IV 0037 Cholecalciferol 1,000 IU DAILY 08/08 1553 AC 08/12 PO 0902 Dexamethasone 2 MG DAILY 08/10 1000 AC 08/12 PO 0901 Digoxin 0.125 MG 1700 08/08 1700 AC 08/12 PO 1834 Enoxaparin Sodium 40 MG DAILY 08/09 1000 AC 08/12 SC 0925 Guaifenesin/Codeine 10 ML Q6-PRN PRN 08/08 1630 AC 08/12 Phosphate PO 2220 Hydrocortisone 50 MG Q12 08/11 2200 AC 08/12 Sodium Succinate IV 2220 Insulin Aspart 0 TIDAC 08/10 1700 AC 08/12 SC 1834 Loperamide HCl 2 MG Q3P PRN 08/10 1400 DC 08/12 PO 0908 Lorazepam 0.5 MG BID PRN 08/08 1600 AC 08/12 PO 08/15 1559 2231 Magnesium Chloride 128 MG TID 08/11 1600 AC 08/12 PO 2220 Metoprolol Tartrate 12.5 MG BID 08/10 1000 AC 08/12 PO 2221 Ondansetron HCl 4 MG Q6P PRN 08/12 1015 AC 08/12 IV 1042 Potassium Chloride 40 MEQ DAILY 08/12 1000 AC 08/12 PO 0903 Vancomycin HCl 1,000 MG DAILY 08/11 1000 DC 08/11 Sodium Chloride 250 ML IV 0900 Last 24 Hrs of Lab/Gaurav Results Last 24 Hrs of Labs/Mics: Laboratory Tests 08/13/17 0655: Sodium Pending, Potassium Pending, Chloride Pending, Carbon Dioxide Pending, Anion Gap Pending, BUN Pending, Creatinine Pending, BUN/Creatinine Ratio Pending , Phosphorus Pending, Magnesium Pending, CBC w Diff Pending, WBC Pending, RBC Pending, Hgb Pending, Hct Pending, MCV Pending, MCH Pending, RDW Pending, Plt Count Pending, MPV Pending, PUBS MCHC Pending Microbiology 08/12 1907 STOOL: Clostridium difficile Toxin A & B - COLB Assessment/Plan Assessment: 72-year-old gentleman with past medical history of 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 hypertension, hyperlipidemia, diabetes?, A. fib not on anticoagulation, GERD, last chemotherapy was February 2017 and radiation to the brain was April 2017 here with multilobar pneumonia. Problem List: 1. Severe Sepsis 2. Multilobar pneumonia 3. Subtherapeutic digoxin 4. Electrolyte abnormalities #Severe sepsis secondary to multilobar pneumonia: Patient presented with productive cough, increased confusion, and shortness of breath. He was found to me 3/4 SIRS criteria (tachycardia, tachypnea, leukocytosis) with suspected source in lung, meeting criteria for sepsis with lactic acidosis. Lactic acid is trended down status post fluid resuscitation. He was initially started on ceftriaxone and azithromycin. However the patient became hypotensive the night of admission and the antibiotic coverage was broadened to vancomycin and ceftazidine. Antibiotics were stopped yesterday and he has improved markedly. He can likely go home today with hospice. -Appreciate pulmonology recommendations -Follow cultures -stop Hydrocortisone -Guaifenesin -Budesonide/formoterol -Benzonatate -C nebs -Appreciate ID recommendations #Subtherapeutic digoxin: Digoxin level subtherapeutic. However heart rate has been normal. -CTM heart rate #Electronic abnormalities: His magnesium, potassium, and phosphate have been very low.- -potassium, magnesium supplementation -Continue to monitor -Labs at 1500 #Nausea or vomiting: Relatively new, although it can be related to cancer but we obtained abdominal x-ray that showed gas. -Ondansetron and simethicone #Chronic medical problems: -Continue home magnesium, digoxin, lorazepam, cholecalciferol -Home hospice evaluation DVT prophylaxis with enoxaparin Consistent carbohydrate 2 diet Full code: Patient still wants to be full code. He is interested in home hospice potentially. Problem List: 1. Pneumonia Pain Ratin Pain Location: no Pain Goal: Remain pain free Pain Plan: see a/p Tomorrow's Labs & Rationales: none
--- NOTE | 2017-08-13 07:50 | PN- Oncology ---
Subjective Subjective: Per his , he was very agitated overnight. He did well prior to that. Appetite is decreased and has not eaten much. He is a little better this morning. Review of Systems: Constitutional: Reports: malaise, weakness. Denies: chills, fever. Cardiovascular: Denies: chest pain. Respiratory: Reports: cough, short of breath. GI: Denies: abdominal pain, diarrhea. Musculoskeletal: Reports: back pain. Neurological/Psychological: Reports: confusion, weakness (generalized). All Other Systems: Reviewed and Negative Objective Vital Signs and I&Os Vital Signs Date Time Temp Pulse Resp B/P B/P Pulse O2 O2 Flow FiO2 Mean Ox Delivery Rate 08/13 0000 Room Air 08/12 2314 98.6 70 22 102/78 92 08/12 2221 70 100/50 08/12 1907 92 Room Air 08/12 1834 80 112/60 08/12 1400 98.3 80 20 112/60 96 Room Air 08/12 0931 92 Room Air Room Air 08/12 0902 67 122/84 08/12 0800 Room Air Intake & Output 08/13 0800 08/13 0000 08/12 1600 08/12 0800 08/12 0000 08/11 1600 Intake Total 750 850 Output Total 900 250 Balance -150 -250 850 Intake, IV 250 Intake, Oral 750 600 Number 1 1 Bowel Movements Output, Urine 900 250 Physical Exam: General Appearance: no apparent distress, comfortable, cachetic, thin Head: atraumatic Respiratory: chest non-tender, decreased breath sounds ( right lower lobe), crackles ( at bases) Cardiovascular: tachycardia Gastrointestinal: normal bowel sounds, soft, non-tender Extremities: no edema Neurologic/Psych: alert, oriented x 3 Cranial Nerves: normal speech Current Medications: Current Medications Sig/Mikey Start time Last Medication Dose Route Stop Time Status Admin Albuterol Sulfate 3 ML BID 08/12 1000 AC 08/12 INH 1907 Benzonatate 100 MG BID 08/08 1553 AC 08/12 PO 2220 Budesonide/ 2 PUF BID 08/08 1552 AC 08/12 Formoterol Fumarate INH 2220 Ceftazidime 1,000 MG IQ8 08/09 0000 DC 08/12 IV 0037 Cholecalciferol 1,000 IU DAILY 08/08 1553 AC 08/12 PO 0902 Dexamethasone 2 MG DAILY 08/10 1000 AC 08/12 PO 0901 Digoxin 0.125 MG 1700 08/08 1700 AC 08/12 PO 1834 Enoxaparin Sodium 40 MG DAILY 08/09 1000 AC 08/12 SC 0925 Guaifenesin/Codeine 10 ML Q6-PRN PRN 08/08 1630 AC 08/12 Phosphate PO 2220 Hydrocortisone 50 MG Q12 08/11 2200 AC 08/12 Sodium Succinate IV 2220 Insulin Aspart 0 TIDAC 08/10 1700 AC 08/12 SC 1834 Loperamide HCl 2 MG Q3P PRN 08/10 1400 DC 08/12 PO 0908 Lorazepam 0.5 MG BID PRN 08/08 1600 AC 08/12 PO 08/15 1559 2231 Magnesium Chloride 128 MG TID 08/11 1600 AC 08/12 PO 2220 Metoprolol Tartrate 12.5 MG BID 08/10 1000 AC 08/12 PO 2221 Ondansetron HCl 4 MG Q6P PRN 08/12 1015 AC 08/12 IV 1042 Potassium Chloride 40 MEQ DAILY 08/12 1000 AC 08/12 PO 0903 Vancomycin HCl 1,000 MG DAILY 08/11 1000 DC 08/11 Sodium Chloride 250 ML IV 0900 Results Last 24 Hours of Lab Results: Laboratory Tests 08/13 0655 Chemistry Sodium Pending Potassium Pending Chloride Pending Carbon Dioxide Pending Anion Gap Pending BUN Pending Creatinine Pending BUN/Creatinine Ratio Pending Phosphorus Pending Magnesium Pending Hematology CBC w Diff Pending WBC Pending RBC Pending Hgb Pending Hct Pending MCV Pending MCH Pending RDW Pending Plt Count Pending MPV Pending PUBS MCHC Pending Assessment/Plan Assessment/Recommendations: Mr. Barraza is a 72-year-old male with metastatic small cell lung cancer, CAD, HLD, HTN, and atrial fibrillation who presented to the hospital with worsening fatigue, cough, and shortness of breath. He has been having progressively worsening weakness and has been basically bed-bound. On presentation, he was noted to be febrile, tachycardic, and hypotensive. Symptomatically improved with fluid resuscitation. CT imaging of the chest, abdomen, and pelvis demonstrated worsening right-sided lung disease, right pleural effusion, and new multi lobular pneumonia on the left side. He has been admitted and has been started on IV fluid with along with antibiotics. He is now off antibiotic. He is afebrile. He is currently on room air. His confusion is likely sundowning from hospitalization, brain metastases, and steroid. Steroid is being tapered. He is doing better with the respiratory issue. He will need STR versus home health. He seems to want to be home. He is considering hospice. He wants to remain full code.\ 1. multilobular pneumonia - off antibiotics - incentive spirometer - follow up ID recommendations 2. metastatic small-cell lung cancer - may need more dedicated reimaging of the brain if still with confusion - taper steroid down to home dexamethasone 2 mg daily - continue discussion of goals of care Please call [phone] with any questions or concerns. Problem List: 1. Small cell carcinoma of lung 2. Pneumonia 3. Metastasis
[2017-08-13 08:21] LABS: ABSOLUTE BASOPHIL COUNT 0 /CUMM (0.0-0.2); ABSOLUTE EOSINOPHIL COUNT 0 /CUMM (0.0-0.7); ABSOLUTE GRANULOCYTE CT 7.5 /CUMM (1.4-6.5); ABSOLUTE LYMPH COUNT 0.6 /CUMM (1.2-3.4); ABSOLUTE MONOCYTE COUNT 0.3 /CUMM (0.10-0.60); BASOPHIL % 0 % (0.0-2.0); EOSINOPHIL % 0.5 % (0-5); GRANULOCYTE % 88.9 % (42.2-75.2); HEMATOCRIT 35.5 % (42-52); MEAN CORPUSCULAR HGB 29.8 PG (27.0-31.0); MEAN CORPUSCULAR HGB CONC 33.1 G/DL (33.0-37.0); MEAN CORPUSCULAR VOLUME 89.9 FL (80.0-94.0); MEAN PLATELET VOLUME 8.2 FL (7.4-10.4); PLATELET COUNT 302 /CUMM (130-400); RBC DISTRIBUTION WIDTH 17.2 % (11.5-14.5); RED BLOOD CELL CT 3.95 /CUMM (4.70-6.10); WHITE BLOOD CELL COUNT 8.4 /CUMM (4.8-10.8)
--- NOTE | 2017-08-13 10:15 | PN- Pulmonary ---
Subjective HPI/Critical Care Issues: Patient seen and examined this morning. His nausea is improved. He appears comfortable and awaiting hospice evaluation. Objective Current Medications: Current Medications Sig/Mikey Start time Last Medication Dose Route Stop Time Status Admin Albuterol Sulfate 3 ML BID 08/12 1000 AC 08/13 INH 0804 Benzonatate 100 MG BID 08/08 1553 AC 08/13 PO 0912 Budesonide/ 2 PUF BID 08/08 1552 AC 08/13 Formoterol Fumarate INH 0913 Ceftazidime 1,000 MG IQ8 08/09 0000 DC 08/12 IV 0037 Cholecalciferol 1,000 IU DAILY 08/08 1553 AC 08/13 PO 0912 Dexamethasone 2 MG DAILY 08/10 1000 AC 08/13 PO 0911 Digoxin 0.125 MG 1700 08/08 1700 AC 08/12 PO 1834 Enoxaparin Sodium 40 MG DAILY 08/09 1000 AC 08/13 SC 0913 Guaifenesin/Codeine 10 ML Q6-PRN PRN 08/08 1630 AC 08/12 Phosphate PO 2220 Hydrocortisone 50 MG Q12 08/11 2200 DC 08/13 Sodium Succinate IV 0915 Insulin Aspart 0 TIDAC 08/10 1700 AC 08/13 SC 0923 Lorazepam 0.5 MG BID PRN 08/08 1600 AC 08/13 PO 08/15 1559 0911 Magnesium Chloride 128 MG TID 08/11 1600 AC 08/13 PO 0915 Magnesium Sulfate 1 GM Q2H 08/13 0900 AC Dextrose/Water 100 ML IV 08/13 1259 Metoprolol Tartrate 12.5 MG BID 08/10 1000 AC 08/13 PO 0912 Ondansetron HCl 4 MG Q6P PRN 08/12 1015 AC 08/12 IV 1042 Potassium Chloride 40 MEQ BID 08/13 1000 AC PO Potassium Chloride 40 MEQ ONCE ONE 08/13 0900 DC 08/13 PO 08/13 0901 0912 Potassium Chloride 40 MEQ DAILY 08/12 1000 DC 08/12 PO 0903 Simethicone 80 MG Q4P PRN 08/13 0830 AC PO Vancomycin HCl 1,000 MG DAILY 08/11 1000 DC 08/11 Sodium Chloride 250 ML IV 0900 Vital Signs & I&O Last 24 Hrs of Vitals and I&O: Vital Signs Date Time Temp Pulse Resp B/P B/P Pulse O2 O2 Flow FiO2 Mean Ox Delivery Rate 08/13 0912 107 108/64 08/13 0806 95 Room Air 08/13 0800 Room Air 08/13 0600 98.0 107 18 108/64 92 Room Air 08/13 0000 Room Air 08/12 2314 98.6 70 22 102/78 92 08/12 2221 70 100/50 08/12 1907 92 Room Air 08/12 1834 80 112/60 08/12 1400 98.3 80 20 112/60 96 Room Air Exam Other Physical Findings: gen awake heent steroid changes to face cvs s1, s2 lungs bilateral rhonchi abd soft, bs+ port in place ext without edema Results Last 24 Hrs of Lab Results: Laboratory Tests 08/13/17 0655: Anion Gap 10, Estimated GFR > 60, BUN/Creatinine Ratio 15.0, Phosphorus 2.9, Magnesium 1.4 L, CBC w Diff MAN DIFF ORDERED, RBC 3.95 L, MCV 89.9, MCH 29.8, RDW 17.2 H, MPV 8.2, Gran % 88.9 H, Lymphocytes % 6.9 L, Monocytes % 3.7, Eosinophils % 0.5, Basophils % 0, Absolute Granulocytes 7.5 H, Absolute Lymphocytes 0.6 L, Absolute Monocytes 0.3, Absolute Eosinophils 0, Absolute Basophils 0, Platelet Estimate VERIFIED BY SMEAR, Polychromasia 1+, Anisocytosis 1+, PUBS MCHC 33.1 Impression/Plan Impression/Plan Impression/Plan: Impression 72 year old man * 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 a very poor prognosis was discussed. he remains full code, however this will continue to be addressed. in the meantime if there is a significant deterioration the family may consider moving to a conservative management if the circumstances permit -TRC/Nebs -electrolyte repletion as necessary -remain on telemetry given signficant hypokalemia and chronic hypomagnesemia DVT prophylaxis at all times
[2017-08-13 15:00] VITALS: BP 120/70
--- NOTE | 2017-08-13 15:31 | PN- Infect Dx ---
Subjective Subjective: Afebrile on steroids. He was apparently agitated overnight but is improved now. He does not offer any complaints. Objective Last 24 Hrs of Vital Signs/I&O Vital Signs Date Time Temp Pulse Resp B/P B/P Pulse O2 O2 Flow FiO2 Mean Ox Delivery Rate 08/13 0912 107 108/64 08/13 0806 95 Room Air 08/13 0800 Room Air 08/13 0600 98.0 107 18 108/64 92 Room Air 08/13 0000 Room Air 08/12 2314 98.6 70 22 102/78 92 08/12 2221 70 100/50 08/12 1907 92 Room Air 08/12 1834 80 112/60 Physical Exam Other Physical Findings: He appears comfortable in no acute distress Chest Port-A-Cath in the left upper chest with no inflammation at the site Lungs decreased breath sounds at the right base Heart regular rhythm with no murmur Abdomen is distended, nontender with positive bowel sounds Extremities no cyanosis, clubbing or edema Results Last 24 Hours of Lab Results: Laboratory Tests 08/13 0655 Chemistry Sodium (137 - 145 mmol/L) 140 Potassium (3.5 - 5.1 mmol/L) 3.0 L Chloride (98 - 107 mmol/L) 98 Carbon Dioxide (22 - 30 mmol/L) 32 H Anion Gap (5 - 16) 10 BUN (9 - 20 mg/dL) 6 L Creatinine (0.7 - 1.2 mg/dL) 0.4 L Estimated GFR (>60 ml/min) > 60 BUN/Creatinine Ratio (7 - 25 %) 15.0 Phosphorus (2.5 - 4.5 mg/dL) 2.9 Magnesium (1.6 - 2.3 mg/dL) 1.4 L Hematology CBC w Diff MAN DIFF ORDERED WBC (4.8 - 10.8 /CUMM) 8.4 RBC (4.70 - 6.10 /CUMM) 3.95 L Hgb (14.0 - 18.0 G/DL) 11.8 L Hct (42 - 52 %) 35.5 L MCV (80.0 - 94.0 FL) 89.9 MCH (27.0 - 31.0 PG) 29.8 RDW (11.5 - 14.5 %) 17.2 H Plt Count (130 - 400 /CUMM) 302 MPV (7.4 - 10.4 FL) 8.2 Gran % (42.2 - 75.2 %) 88.9 H Lymphocytes % (20.5 - 51.1 %) 6.9 L Monocytes % (1.7 - 9.3 %) 3.7 Eosinophils % (0 - 5 %) 0.5 Basophils % (0.0 - 2.0 %) 0 Absolute Granulocytes (1.4 - 6.5 /CUMM) 7.5 H Absolute Lymphocytes (1.2 - 3.4 /CUMM) 0.6 L Absolute Monocytes (0.10 - 0.60 /CUMM) 0.3 Absolute Eosinophils (0.0 - 0.7 /CUMM) 0 Absolute Basophils (0.0 - 0.2 /CUMM) 0 Platelet Estimate (ADEQUATE) VERIFIED BY SMEAR Polychromasia 1+ Anisocytosis 1+ PUBS MCHC (33.0 - 37.0 G/DL) 33.1 Last 24 Hours of Gaurav Results: Stool C. difficile August 13 pending Assessment/Plan Impression: Stable with temperatures and white blood cell count remaining normal (on steroids) now off antibiotics after 4 days of treatment for possible left lower lobe pneumonia in this patient with small cell cancer of the lung, metastatic to the brain. The decision regarding home hospice is still pending but, given his poor prognosis, do not feel that further evaluation or treatment for any possible infection is indicated. Suggestion: 1. Await decision regarding home hospice 2. Follow-up stool for C. difficile 3. Continue to follow off antibiotics
[2017-08-13 22:00] VITALS: BP 120/68
--- NOTE | 2017-08-14 07:21 | PN- Housestaff ---
See Addendum Subjective Follow-up For: PNA Tele-Events Since Last Visit: Not on tele Subjective: No overnight events. He did not sleep well. Patient is now requesting physical therapy at home. He says he has been bedbound for 6 months, but that it is because nobody helps him. No CP, SOB, or other complaints. Review of Systems Constitutional: Reports: no symptoms. EENTM: Reports: no symptoms. Cardiovascular: Reports: no symptoms. Respiratory: Reports: no symptoms. Gastrointestinal: Reports: no symptoms. Genitourinary: Reports: no symptoms. Musculoskeletal: Reports: see HPI. Skin: Reports: no symptoms. Neurological/Psychological: Reports: no symptoms. Hematologic/Endocrine: Reports: no symptoms. Immunologic/Allergic: Reports: no symptoms. Objective Last 24 Hrs of Vital Signs/I&O Vital Signs Date Time Temp Pulse Resp B/P B/P Pulse O2 O2 Flow FiO2 Mean Ox Delivery Rate 08/14 0000 91 Room Air 08/13 2200 97.4 105 24 120/68 91 Room Air 08/13 2045 105 120/68 08/13 1825 91 Room Air 08/13 1803 122 112/70 08/13 1730 91 Room Air 08/13 1500 98.1 64 26 120/70 91 08/13 0912 107 108/64 08/13 0806 95 Room Air 08/13 0800 Room Air Intake & Output 08/14 0800 08/14 0000 08/13 1600 Intake Total 100 240 700 Output Total 250 300 Balance 100 -10 400 Intake, IV 200 Intake, Oral 100 240 500 Number 0 1 Bowel Movements Output, Urine 250 300 Physical Exam General Appearance: Alert, Oriented X3, Cooperative, No Acute Distress Cardiovascular: Regular Rate, Normal S1, Normal S2 Lungs: crackles/rhonci Abdomen: Soft Neurological: Normal Speech Extremities: No Edema Current Medications: Current Medications Sig/Mikey Start time Last Medication Dose Route Stop Time Status Admin Acetaminophen 325 MG Q6P PRN 08/13 1930 AC 08/13 PO 1925 Albuterol Sulfate 3 ML BID 08/12 1000 AC 08/13 INH 182 Benzonatate 100 MG BID 08/08 1553 AC 08/13 PO 204 Budesonide/ 2 PUF BID 08/08 1552 AC 08/13 Formoterol Fumarate INH 2045 Cholecalciferol 1,000 IU DAILY 08/08 1553 AC 08/13 PO 0912 Dexamethasone 2 MG DAILY 08/10 1000 AC 08/13 PO 0911 Digoxin 0.125 MG 1700 08/08 1700 AC 08/13 PO 1803 Enoxaparin Sodium 40 MG DAILY 08/09 1000 AC 08/13 SC 0913 Guaifenesin/Codeine 10 ML Q6-PRN PRN 08/08 1630 AC 08/12 Phosphate PO 2220 Hydrocortisone 50 MG Q12 08/11 2200 DC 08/13 Sodium Succinate IV 0915 Insulin Aspart 0 TIDAC 08/10 1700 AC 08/13 SC 1318 Lorazepam 0.5 MG BID PRN 08/08 1600 AC 08/13 PO 08/15 1559 2045 Magnesium Chloride 128 MG TID 08/11 1600 AC 08/13 PO 2045 Magnesium Sulfate 1 GM Q2H 08/13 0900 DC 08/13 Dextrose/Water 100 ML IV 08/13 1259 1318 Metoprolol Tartrate 12.5 MG BID 08/10 1000 AC 08/13 PO 2045 Ondansetron HCl 4 MG Q6P PRN 08/12 1015 AC 08/12 IV 1042 Potassium Chloride 40 MEQ BID 08/13 1000 AC 08/13 PO 2045 Potassium Chloride 40 MEQ ONCE ONE 08/13 0900 DC 08/13 PO 08/13 0901 0912 Potassium Chloride 40 MEQ DAILY 08/12 1000 DC 08/12 PO 0903 Risperidone 2 MG AT BEDTIME 08/13 2200 CAN PO Risperidone 0.25 MG AT BEDTIME 08/13 2200 AC 08/13 PO 2045 Simethicone 80 MG Q4P PRN 08/13 0830 AC PO Last 24 Hrs of Lab/Gaurav Results Last 24 Hrs of Labs/Mics: Laboratory Tests 08/14/17 0542: Sodium Pending, Potassium Pending, Chloride Pending, Carbon Dioxide Pending, Anion Gap Pending, BUN Pending, Creatinine Pending, BUN/Creatinine Ratio Pending , Phosphorus Pending, Magnesium Pending 08/13/17 1525: Phosphorus 3.0, Magnesium 1.9 Microbiology 08/13 1145 STOOL: Clostridium difficile Toxin A & B - RECD Assessment/Plan Assessment: 72-year-old gentleman with past medical history of 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 hypertension, hyperlipidemia, diabetes?, A. fib not on anticoagulation, GERD, last chemotherapy was February 2017 and radiation to the brain was April 2017 here with multilobar pneumonia. Problem List: 1. Severe Sepsis 2. Multilobar pneumonia 3. Subtherapeutic digoxin 4. Electrolyte abnormalities 5. Disposition Problems #Disposition Problems: The patient is now off antibiotics and medically stable for discharge to home hospice. He was initially requesting home hospice. However the patient now does not want to go to hospice and is now requesting physical therapy. We did request psychiatry, evaluate him for competence given that he has been intermittently confused. -Risperidone when necessary at night -Appreciate psychiatry recommendations -PT consult #Severe sepsis secondary to multilobar pneumonia: Resolved. Patient presented with productive cough, increased confusion, and shortness of breath. He was found to me 3/4 SIRS criteria (tachycardia, tachypnea, leukocytosis) with suspected source in lung, meeting criteria for sepsis with lactic acidosis. Lactic acid is trended down status post fluid resuscitation. He was initially started on ceftriaxone and azithromycin. However the patient became hypotensive the night of admission and the antibiotic coverage was broadened to vancomycin and ceftazidine. Antibiotics were stopped and he has improved markedly. -Appreciate pulmonology recommendations -Guaifenesin -Budesonide/formoterol -Benzonatate -TRC nebs -Appreciate ID recommendations #Subtherapeutic digoxin: Digoxin level subtherapeutic. However heart rate has been normal. -CTM heart rate -Recheck dig level #Electronic abnormalities: His magnesium, potassium, and phosphate have been very low.- -potassium, magnesium supplementation -Continue to monitor #Nausea or vomiting: Relatively new, although it can be related to cancer but we obtained abdominal x-ray that showed gas. -Ondansetron and simethicone #Chronic medical problems: -Continue home magnesium, digoxin, lorazepam, cholecalciferol DVT prophylaxis with enoxaparin Consistent carbohydrate 2 diet Full code: Patient still wants to be full code. Problem List: 1. Discharge planning issues Pain Ratin Pain Location: no pain Pain Goal: Remain pain free Pain Plan: see a/p Tomorrow's Labs & Rationales: BEP, mg, phos
[2017-08-14 07:39] VITALS: BP 108/60
--- NOTE | 2017-08-14 09:06 | PN- Oncology ---
Subjective Subjective: He did better overnight. He was less confused. He was less agitated. He feels better with breathing. He wants to get stronger and continue with physical therapy at home. Review of Systems: Constitutional: Reports: weakness. Denies: chills, fever. Cardiovascular: Denies: chest pain. Respiratory: Reports: cough, short of breath. GI: Denies: abdominal pain, diarrhea. Musculoskeletal: Reports: back pain. Neurological/Psychological: Reports: weakness (generalized). All Other Systems: Reviewed and Negative Objective Vital Signs and I&Os Vital Signs Date Time Temp Pulse Resp B/P B/P Pulse O2 O2 Flow FiO2 Mean Ox Delivery Rate 08/14 0739 97.9 92 20 108/60 95 Room Air 08/14 0000 91 Room Air 08/13 2200 97.4 105 24 120/68 91 Room Air 08/13 2045 105 120/68 08/13 1825 91 Room Air 08/13 1803 122 112/70 08/13 1730 91 Room Air 08/13 1500 98.1 64 26 120/70 91 08/13 0912 107 108/64 Intake & Output 08/14 1600 08/14 0800 08/14 0000 08/13 1600 08/13 0800 08/13 0000 Intake Total 100 240 700 Output Total 250 300 Balance 100 -10 400 Intake, IV 200 Intake, Oral 100 240 500 Number 0 1 Bowel Movements Output, Urine 250 300 Physical Exam: General Appearance: no apparent distress, comfortable, cachetic, thin Respiratory: chest non-tender, decreased breath sounds, crackles, intermittent cough Cardiovascular: tachycardia Gastrointestinal: normal bowel sounds, soft, non-tender Extremities: no edema Neurologic/Psych: alert, oriented x 3 Cranial Nerves: normal speech Current Medications: Current Medications Sig/Mikey Start time Last Medication Dose Route Stop Time Status Admin Acetaminophen 325 MG Q6P PRN 08/13 1930 AC 08/13 PO 1925 Albuterol Sulfate 3 ML BID 08/12 1000 AC 08/13 INH 182 Benzonatate 100 MG BID 08/08 1553 AC 08/13 PO 2044 Budesonide/ 2 PUF BID 08/08 1552 AC 08/13 Formoterol Fumarate INH 2046 Cholecalciferol 1,000 IU DAILY 08/08 1553 AC 08/13 PO 0912 Dexamethasone 2 MG DAILY 08/10 1000 AC 08/13 PO 0911 Digoxin 0.125 MG 1700 08/08 1700 AC 08/13 PO 1803 Enoxaparin Sodium 40 MG DAILY 08/09 1000 AC 08/13 SC 0913 Guaifenesin/Codeine 10 ML Q6-PRN PRN 08/08 1630 AC 08/12 Phosphate PO 2220 Hydrocortisone 50 MG Q12 08/11 2200 DC 08/13 Sodium Succinate IV 0915 Insulin Aspart 0 TIDAC 08/10 1700 AC 08/13 SC 1318 Lorazepam 0.5 MG BID PRN 08/08 1600 AC 08/13 PO 08/15 1559 2045 Magnesium Chloride 128 MG TID 08/11 1600 AC 08/13 PO 2045 Magnesium Sulfate 1 GM Q2H 08/14 0845 AC Dextrose/Water 100 ML IV 08/14 1244 Magnesium Sulfate 1 GM Q2H 08/13 0900 DC 08/13 Dextrose/Water 100 ML IV 08/13 1259 1318 Metoprolol Tartrate 12.5 MG BID 08/10 1000 AC 08/13 PO 2045 Ondansetron HCl 4 MG Q6P PRN 08/12 1015 AC 08/12 IV 1042 Potassium Chloride 40 MEQ BID 08/13 1000 AC 08/13 PO 2045 Potassium Chloride 40 MEQ ONCE ONE 08/13 0900 DC 08/13 PO 08/13 0901 0912 Risperidone 2 MG AT BEDTIME 08/13 2199 CAN PO Risperidone 0.25 MG AT BEDTIME 08/13 2199 AC 08/13 PO 2045 Simethicone 80 MG Q4P PRN 08/13 0830 AC PO Results Last 24 Hours of Lab Results: Laboratory Tests 08/14 08/13 0542 1525 Chemistry Sodium (137 - 145 mmol/L) 140 Potassium (3.5 - 5.1 mmol/L) 3.6 3.9 Chloride (98 - 107 mmol/L) 100 Carbon Dioxide (22 - 30 mmol/L) 30 Anion Gap (5 - 16) 10 BUN (9 - 20 mg/dL) 7 L Creatinine (0.7 - 1.2 mg/dL) 0.4 L Estimated GFR (>60 ml/min) > 60 BUN/Creatinine Ratio (7 - 25 %) 17.5 Phosphorus (2.5 - 4.5 mg/dL) 2.9 3.0 Magnesium (1.6 - 2.3 mg/dL) 1.5 L 1.9 Toxicology Digoxin (0.8 - 2.0 ng/mL) 0.6 L Assessment/Plan Assessment/Recommendations: Mr. Barraza is a 72-year-old male with metastatic small cell lung cancer, CAD, HLD, HTN, and atrial fibrillation who presented to the hospital with worsening fatigue, cough, and shortness of breath. He has been having progressively worsening weakness and has been basically bed-bound. On presentation, he was noted to be febrile, tachycardic, and hypotensive. Symptomatically improved with fluid resuscitation. CT imaging of the chest, abdomen, and pelvis demonstrated worsening right-sided lung disease, right pleural effusion, and new multi lobular pneumonia on the left side. He is currently off antibiotic and is afebrile. He is stable on room air. He is not as confused today. Currently, he continues to wish to go home with physical therapy. He continues to want to be full code. He is currently not a candidate for therapy. 1. multilobular pneumonia - off antibiotic - follow up ID recommendations 2. metastatic small-cell lung cancer - taper steroid down to home dexamethasone 2 mg daily - continue discussion of goals of care Please call [phone] with any questions or concerns. Problem List: 1. Pneumonia 2. Metastasis 3. Small cell carcinoma of lung
--- NOTE | 2017-08-14 11:27 | PN- Pulmonary ---
Subjective HPI/Critical Care Issues: Patient seen and examined this morning. He appears lethargic however awake and his nausea has resolved. His cough is dry and no longer productive. Objective Current Medications: Current Medications Sig/Mikey Start time Last Medication Dose Route Stop Time Status Admin Acetaminophen 325 MG Q6P PRN 08/13 1930 AC 08/13 PO 1925 Albuterol Sulfate 3 ML BID 08/12 1000 AC 08/14 INH 1044 Benzonatate 100 MG BID 08/08 1553 AC 08/14 PO 0912 Budesonide/ 2 PUF BID 08/08 1552 AC 08/13 Formoterol Fumarate INH 2046 Cholecalciferol 1,000 IU DAILY 08/08 1553 AC 08/14 PO 0912 Dexamethasone 2 MG DAILY 08/10 1000 AC 08/14 PO 0912 Digoxin 0.125 MG 1700 08/08 1700 AC 08/13 PO 1803 Enoxaparin Sodium 40 MG DAILY 08/09 1000 AC 08/14 SC 0927 Guaifenesin/Codeine 10 ML Q6-PRN PRN 08/08 1630 AC 08/12 Phosphate PO 2220 Insulin Aspart 0 TIDAC 08/10 1700 AC 08/13 SC 1318 Lorazepam 0.5 MG BID PRN 08/08 1600 DC 08/14 PO 08/15 1559 0912 Magnesium Chloride 128 MG TID 08/11 1600 AC 08/14 PO 0913 Magnesium Sulfate 1 GM Q2H 08/14 0845 AC 08/14 Dextrose/Water 100 ML IV 08/14 1244 0921 Magnesium Sulfate 1 GM Q2H 08/13 0900 DC 08/13 Dextrose/Water 100 ML IV 08/13 1259 1318 Metoprolol Tartrate 12.5 MG BID 08/10 1000 AC 08/14 PO 0912 Ondansetron HCl 4 MG Q6P PRN 08/12 1015 AC 08/12 IV 1042 Potassium Chloride 40 MEQ BID 08/13 1000 AC 08/14 PO 0912 Risperidone 0.5 MG AT BEDTIME 08/14 2199 AC PO Risperidone 2 MG AT BEDTIME 08/13 2200 CAN PO Risperidone 0.25 MG AT BEDTIME 08/13 2200 DC 08/13 PO 2045 Simethicone 80 MG Q4P PRN 08/13 0830 AC PO Vital Signs & I&O Last 24 Hrs of Vitals and I&O: Vital Signs Date Time Temp Pulse Resp B/P B/P Pulse O2 O2 Flow FiO2 Mean Ox Delivery Rate 08/14 1047 95 Room Air 08/14 0912 104 112/70 08/14 0800 94 Room Air 08/14 0739 97.9 92 20 108/60 95 Room Air 08/14 0000 91 Room Air 08/13 2200 97.4 105 24 120/68 91 Room Air 08/13 2045 105 120/68 08/13 1825 91 Room Air 08/13 1803 122 112/70 08/13 1730 91 Room Air 08/13 1500 98.1 64 26 120/70 91 Intake & Output 08/14 1600 08/14 0800 08/14 0000 Intake Total 100 240 Output Total 250 Balance 100 -10 Intake, Oral 100 240 Number 0 Bowel Movements Output, Urine 250 Exam Other Physical Findings: gen awake heent steroid changes to face cvs s1, s2 lungs bilateral rhonchi abd soft, bs+ port in place ext without edema Results Last 24 Hrs of Lab Results: Laboratory Tests 08/14/17 0600: RPR Titer/FTA Pending, Lyme Disease Antibody Pending 08/14/17 0542: Anion Gap 10, Estimated GFR > 60, BUN/Creatinine Ratio 17.5, Phosphorus 2.9, Magnesium 1.5 L, Vitamin B12 Pending, Folate Pending, TSH 2.560, Free T4 1.23, Digoxin 0.6 L 08/13/17 1525: Phosphorus 3.0, Magnesium 1.9 Impression/Plan Impression/Plan Impression/Plan: Impression 72 year old man * 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 * here with multilobar left sided pneumonia resulting in severe sepsis (low bp) responsive to fluids * confusion/altered mental status * immunocompromised state causing the etiology of the pneumonia to have a broad potential etiology * electrolyte derangement Plan -steroids taper -Patient declined hospice and plan for discharge to home with can care when appropriate -f/u ID recs for abx - will monitor off abx, check c.diff -patient has port for access -discussed his condition at length with his and daughter. a very poor prognosis was discussed. he remains full code, however this will continue to be addressed. in the meantime if there is a significant deterioration the family may consider moving to a conservative management if the circumstances permit -TRC/Nebs -electrolyte repletion as necessary DVT prophylaxis at all times
[2017-08-14 11:28] VITALS: BP 110/60
--- NOTE | 2017-08-14 13:07 | Discharge Summary ---
Visit Information Visit Dates Admission Date: 08/08/17 Discharge Date: 08/15/2017 Hospital Course Course Attending Physician: Clarita Bray MD. 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 hypertension, hyperlipidemia, diabetes?, A. fib not on anticoagulation, GERD. Last chemotherapy was February 2017 and radiation to the brain was April 2017 and patient did not follow up with oncology due to severe weakness and not being able to get out of the house, was brought by ambulance to hospital for severe coughing, G, diarrhea and weakness. Vital signs on arrival was notable for fever 100.5 and tachycardia 120 with borderline low normal blood pressure, And O2 requirements of 3 L EKG 112, QTC 393, questionable mild ST depressions in V4, V5, V6 Head CT IMPRESSION: 1. No acute intracranial abnormality identified. 2. The previously seen metastasis in the left inferior cerebellum appears stable in size since 05/10/2017. The additional metastases within the left paracentral lobule and right inferior occipital lobe are not well defined. No definite new metastases are seen although brain MRI with contrast would be more sensitive. CTA and CT of abdomen and pelvis: IMPRESSION: 1. No evidence of pulmonary embolism. 2. Increasing size of the right-sided Pancoast tumor with chest wall extension and direct bone invasion. 3. Enlarging satellite lesion right lower lobe. Pleural seeding with increasing right pleural effusion. 4. Multilobar pneumonia left lung. 5. Hydropic gallbladder without stones. 6. The distal appendix is dilated filled with mucin. VTE: Negative. WBC 19.3, hemoglobin 13.7 platelets 338, lactic acid 5.9 >> 3.9 , Sodium 133, magnesium 1, potassium 3.3, Glucose 180 , ag 20 , trop 0.7 ABG ph 7.49 , co2 28, o2 60 Patient receives 2 L of NS and ceftriaxone and azithromycin in the ED and his clinical condition significantly improved according to the , urine bacteria many, glucose 100 in the urine He was admitted to telemetry initially and then downgraded to general medicine and treated for the following problems: 1. Severe Sepsis 2. Multilobar pneumonia 3. Subtherapeutic digoxin 4. Electrolyte abnormalities 5. Disposition Problems 6. Presumed Stage 3 wound #Disposition Problems: The patient initially wanted home hospice. However the patient then did not want to go to hospice and requested physical therapy. Patient reportedly confused at times and pulling at his lines. We did request psychiatry evaluate him for competence given that he was intermittently confused. We also did a delirium workup that showed....... The patient was started on risperidone. Physical therapy was also consulted and recommended home with services and a Concha lift. But later on patient was agreeable to go to short-term rehabilitation. #Severe sepsis secondary to multilobar pneumonia: Patient presented with productive cough, increased confusion, and shortness of breath. He was found to me 3/4 SIRS criteria (tachycardia, tachypnea, leukocytosis) with suspected source in lung, meeting criteria for sepsis with lactic acidosis. Lactic acid was trended down status post fluid resuscitation. He was initially started on ceftriaxone and azithromycin. However the patient became hypotensive the night of admission and the antibiotic coverage was broadened to vancomycin and ceftazidine. Infectious disease and pulmonology were consulted. He clinically improved and his leukocytosis resolved. He is now completed a full course of antibiotics and has no chest pain or shortness of breath. #Subtherapeutic digoxin: Digoxin level subtherapeutic at admission. His artery was normal however. A recheck of the digoxin level showed that it was still subtherapeutic. #Electronic abnormalities: Throughout his stay, electrolytes were monitored regularly. He was started on electrolyte replacement because he was found to be deficient. #Nausea or vomiting: Relatively new, although it can be related to cancer but we obtained abdominal x-ray that showed gas. He was started on ondansetron and simethicone. #Chronic medical problems: The following home medications were continued: magnesium, digoxin, lorazepam, cholecalciferol Allergies: Coded Allergies: NO KNOWN ALLERGIES (11/08/15) Discharge Instructions Medications at Discharge Discharge Medications: Stop taking the following medications: Metoprolol Succinate (Metoprolol Succinate) 50 MG TAB.ER.24H ORAL Every Morning Qty = 180 Magnesium Oxide (Magnesium Oxide) 400 MG TABLET ORAL TWICE DAILY Qty = 60 Lorazepam (Lorazepam) 0.5 MG TABLET ORAL TWICE DAILY as needed for anxiety Amiloride HCl (Amiloride HCl) 5 MG TABLET ORAL DAILY Qty = 30 Loratadine (Claritin) 10 MG TABLET ORAL DAILY Oxycodone HCl/Acetaminophen (Percocet 5-325 MG Tablet) 5 MG-325 MG TABLET ORAL 4 TIMES A DAY as needed for pain Continue taking these medications: Lansoprazole (Lansoprazole) 30 MG CAPSULE.DR 1 Capsule ORAL Every Morning Qty = 60 Comments: NOT TAKEN THIS ADMISSION [place]-3 Acid Ethyl Esters ([place]-3 Acid Ethyl Esters) 1 GM CAPSULE 2 Capsule ORAL TWICE DAILY Qty = 480 Comments: NOT GIVEN IN THE HOSPITAL Ubidecarenone (Co Q-10) 100 MG CAPSULE 1 Capsule ORAL DAILY Comments: Last Taken:NOT GIVEN IN THE HOSPITAL Time: Calcium Carbonate/Vitamin D3 (Calcium 500 + D Tablet) 1 EACH TABLET 1 Tablet ORAL TWICE DAILY Comments: Last Taken:08/17/17 Time:9 AM Benzonatate (Benzonatate) 100 MG CAPSULE 1 Capsule ORAL TWICE DAILY Qty = 90 Comments: Last Taken:08/17/17 Time:9 AM Fluticasone/Vilanterol (Breo Ellipta 100-25 Mcg INH) 1 EACH BLST.W.DEV 1 Inhalation ORAL DAILY Comments: Last Taken:11/11/15 Time:NOT GIVEN IN THE HOSPITAL Guaifenesin/Codeine Phosphate (Cheratussin AC Syrup) 118 ML LIQUID 10 Milliliters ORAL Q4-6H as needed for COUGH Qty = 473 Comments: Last Taken:NOT GIVEN IN THE HOSPITAL Time: Albuterol Sulfate (Proair Hfa) 8.5 GM HFA.AER.AD 2 Puff Inhale through mouth Q4H as needed for COPD Comments: Last Taken:NOT GIVEN IN THE HOSPITAL Time: Dexamethasone (Dexamethasone) 2 MG TABLET 1 Tablet ORAL DAILY Qty = 90 Comments: Last Taken:08/17/17 Time:9AM Guaifenesin (Mucinex) 600 MG TAB.ER.12H 1 Tablet ORAL TWICE DAILY Comments: NOT TAKEN THIS ADMISSION Digoxin (Digoxin) 125 MCG TABLET 1 Tablet ORAL DAILY Comments: Last Taken:08/16/17 Time:5PM Start taking the following new medications: Metoprolol Tartrate (Metoprolol Tartrate) 25 MG TABLET 12.5 Milligram ORAL TWICE DAILY Qty = 1 No Refills Instructions: . Quetiapine Fumarate (Quetiapine Fumarate) 25 MG TABLET 12.5 Milligram ORAL AT BEDTIME NEEDED as needed for AGITATION Qty = 30 No Refills Instructions: . Quetiapine Fumarate (Quetiapine Fumarate) 25 MG TABLET 12.5 Milligram ORAL TWICE DAILY as needed for AGITAT/HALLUCINATION/IRRITABIL Qty = 30 No Refills Instructions: dont take more than 2 tab a day Magnesium Chloride (Slow-Mag) 71.5 MG TABLET.DR 128 Milligram ORAL THREE TIMES DAILY Qty = 60 No Refills Instructions: . Potassium Chloride (Klor-Con M20) 20 MEQ TAB.ER.PRT 20 Millequivalent ORAL TWICE DAILY Qty = 90 No Refills Instructions: . Budesonide/Formoterol Fumarate (Symbicort 160-4.5 Mcg Inhaler) 160 MCG-4.5 MCG/ ACTUATION HFA.AER.AD 2 Puff Inhale through mouth TWICE DAILY Qty = 10.6 No Refills Instructions: . Simethicone (Simethicone) 80 MG TAB.CHEW 80 Milligram ORAL EVERY 4 HOURS NEEDED as needed for GAS Qty = 30 No Refills Instructions: . Acetaminophen (Tylenol) 325 MG TABLET 325 Milligram ORAL EVERY SIX HOURS NEEDED as needed for PAIN SCALE 1-3 ( MILD) Qty = 30 No Refills
[2017-08-14] MEDS ORDERED: TYLENOL325 M1 PO (13:59)
[2017-08-14] MEDS ORDERED: METOPROLOL TART25 M1 PO (13:59)
[2017-08-14] MEDS ORDERED: SLOW-MAG71.5 MG PO (13:59)
[2017-08-14] MEDS ORDERED: KLOR-CON M2020 ME1 PO (13:59)
[2017-08-14 14:21] VITALS: BP 110/80
[2017-08-14 21:58] VITALS: BP 108/60
--- NOTE | 2017-08-14 23:18 | Incdntl Nt Psy ---
Incidental Note Notation: We were asked to see this 72 y.o. man with history of stage 3 lung cancer with metastisization to the brain, to assess mental capacity to make a decision about his desire for maintaining full code status and returning home with services vs. changing to DNR and initiation of home hospice. This is a brief note to state that the patient is mostly oriented, not delirious , not psychotic and not suicidal, and demonstrated sufficient capacity to make this decision at the time of the brief interview, 1245. He has a recent history of behavioral disturbances in the evening, which were not present during the interview. However, in the event that redirection and reorientation fail as a first intervention, quetiapine 12.5 mg PO may be considered for acute agitation as needed up to 2X/day, provided a repeat EKG shows no arrhythmia or QTc greater than 475 mS, magnesium is repleted to the upper portion of the normal range, and potassium remains in the upper portion of the normal range. Please stop risperidone, and consider quetiapine 12.5 mg PO at bedtime as needed, with the same precautions, if agitation at bedtime. This medication should be considered as secondary to less invasive interventions , as use of antipsychotics poses increased risk of sudden in the elderly. Discussed with Dr. Bai. Full note to follow on 08/15/17, when we will again visit the patient.
[2017-08-15 06:10] VITALS: BP 100/62
[2017-08-15 06:11] VITALS: BP 100/62; BP 106/66
--- NOTE | 2017-08-15 08:10 | PN- Housestaff ---
Tara Bai 08/15/17 0810: Subjective Follow-up For: Multi lobar pneumonia and sepsis Subjective: Patient was seen and examined this morning. He was lying comfortably on bed with nebulization treatment in progress. He denied any chest pain, worsening shortness of breath. He remained hemodynamically stable and wishes to be discharged home. Review of Systems Constitutional: Reports: weakness. Denies: chills, diaphoresis, fever. Respiratory: Denies: cough, hemoptysis. Gastrointestinal: Denies: bloating, diarrhea. Genitourinary: Denies: dysuria, hematuria. Objective Last 24 Hrs of Vital Signs/I&O Vital Signs Date Time Temp Pulse Resp B/P B/P Pulse O2 O2 Flow FiO2 Mean Ox Delivery Rate 08/15 1440 97.6 125 18 125/82 86 08/15 1247 Room Air Room Air 08/15 1246 Room Air Room Air 08/15 1238 Room Air Room Air 08/15 1113 98.0 80 20 100/62 08/15 0936 92 Room Air 08/15 0611 98.0 80 20 100/62 94 Room Air 08/15 0610 98.0 80 20 100/62 94 Room Air 08/15 0000 92 Room Air 08/14 2158 98.3 112 18 108/60 94 Room Air 08/14 2035 112 108/60 08/14 1600 Room Air Intake & Output 08/15 1600 08/15 0800 08/15 0000 Intake Total 560 360 Output Total Balance 560 360 Intake, IV 200 Intake, Oral 360 360 Number 1 Bowel Movements Physical Exam General Appearance: Alert, Oriented X3, Cooperative Cardiovascular: Regular Rate, Normal S1, Normal S2, No Murmurs Lungs: Normal Air Movement Abdomen: Soft, No Tenderness, No Hepatospenomegaly Current Medications: Current Medications Sig/Mikey Start time Last Medication Dose Route Stop Time Status Admin Acetaminophen 325 MG Q6P PRN 08/13 1930 AC 08/14 PO 1132 Albuterol Sulfate 3 ML BID 08/12 1000 08/15 INH 0932 Benzonatate 100 MG BID 08/08 1553 AC 08/15 PO 1120 Budesonide/ 2 PUF BID 08/08 1552 AC 08/15 Formoterol Fumarate INH 1102 Cholecalciferol 1,000 IU DAILY 08/08 1553 AC 08/15 PO 1120 Dexamethasone 2 MG DAILY 08/10 1000 AC 08/15 PO 1102 Digoxin 0.125 MG 1700 08/08 1700 AC 08/14 PO 1645 Enoxaparin Sodium 40 MG DAILY 08/09 1000 AC 08/15 SC 1100 Guaifenesin/Codeine 10 ML Q6-PRN PRN 08/08 1630 AC 08/15 Phosphate PO 1120 Insulin Aspart 0 TIDAC 08/10 1700 AC 08/15 SC 1323 Magnesium Chloride 128 MG TID 08/11 1600 AC 08/15 PO 1100 Metoprolol Tartrate 12.5 MG BID 08/10 1000 AC 08/14 PO 2035 Omeprazole 20 MG DAILY AC 08/15 0700 AC 08/15 PO 0444 Ondansetron HCl 4 MG Q6P PRN 08/12 1015 AC 08/12 IV 1042 Potassium Chloride 40 MEQ ONCE ONE 08/15 1230 DC 08/15 PO 08/15 1231 1325 Potassium Chloride 40 MEQ BID 08/13 1000 AC 08/15 PO 1100 Quetiapine Fumarate 12.5 MG BID PRN 08/15 0845 AC PO Quetiapine Fumarate 12.5 MG BID PRN 08/15 0630 DC PO Quetiapine Fumarate 12.5 MG AT BEDTIME NEED.. 08/15 0630 AC PO Quetiapine Fumarate 25 MG AT BEDTIME 08/14 2200 DC 08/14 PO 2035 Quetiapine Fumarate 25 MG DAILY NEEDED PRN 08/14 1415 DC PO Simethicone 80 MG Q4P PRN 08/13 0830 AC PO Sodium Chloride 500 ML .Q10H 08/14 1400 DC 08/14 IV 08/14 2359 1406 Last 24 Hrs of Lab/Gaurav Results Last 24 Hrs of Labs/Mics: Laboratory Tests 08/15/17 0545: Anion Gap 11, Estimated GFR > 60, BUN/Creatinine Ratio 15.0, Phosphorus 2.7, Magnesium 1.4 L Assessment/Plan Assessment: 72-year-old gentleman with past medical history of 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 hypertension, hyperlipidemia, diabetes?, A. fib not on anticoagulation, GERD, last chemotherapy was February 2017 and radiation to the brain was April 2017 here with multilobar pneumonia. Problem List: 1. Severe Sepsis 2. Multilobar pneumonia 3. Subtherapeutic digoxin 4. Electrolyte abnormalities 5. Disposition Problems #Disposition Problems: The patient is now off antibiotics and medically stable for discharge to home hospice. He was initially requesting home hospice. However the patient now does not want to go to hospice and is now requesting physical therapy. We did request psychiatry, evaluate him for competence given that he has been intermittently confused. -Risperidone when necessary at night -Appreciate psychiatry recommendations -PT consult #Severe sepsis secondary to multilobar pneumonia: Resolved. Patient presented with productive cough, increased confusion, and shortness of breath. He was found to me 3/4 SIRS criteria (tachycardia, tachypnea, leukocytosis) with suspected source in lung, meeting criteria for sepsis with lactic acidosis. Lactic acid is trended down status post fluid resuscitation. He was initially started on ceftriaxone and azithromycin. However the patient became hypotensive the night of admission and the antibiotic coverage was broadened to vancomycin and ceftazidine. Antibiotics were stopped and he has improved markedly. -Appreciate pulmonology recommendations -Guaifenesin -Budesonide/formoterol -Benzonatate -TRC nebs -Appreciate ID recommendations #Subtherapeutic digoxin: Digoxin level subtherapeutic. However heart rate has been normal. -CTM heart rate -Recheck dig level #Electronic abnormalities: His magnesium, potassium, and phosphate have been very low.- -potassium, magnesium supplementation -Continue to monitor #Nausea or vomiting: Relatively new, although it can be related to cancer but we obtained abdominal x-ray that showed gas. -Ondansetron and simethicone #Chronic medical problems: -Continue home magnesium, digoxin, lorazepam, cholecalciferol DVT prophylaxis with enoxaparin Consistent carbohydrate 2 diet Full code: Patient still wants to be full code. Problem List: 1. Metastasis Pain Ratin Pain Location: Not applicable Pain Goal: Remain pain free Pain Plan: Tylenol Tomorrow's Labs & Rationales: Basic electrolyte panel Clarita Bray MD 08/15/17 1218: Attending MD Review Statement Attending Statement Attending MD Statement: examined this patient, discuss w/resident/PA/TOP LIFT NAILER, agreed w/resident/PA/TOP LIFT NAILER, discussed with family, reviewed EMR data (avail), discussed with nursing, discussed with case mgmt, reviewed images, amended to note Attending Assessment/Plan: Patient seen and examined, took over his care today from Dr. Sanchez who had been involved in his care from before. Patient was slightly agitated this morning but later on he seemed to be better. was present at that site and we had a lengthy discussion about his goals of care and disposition planning. Hospice nurse Adilia was also present. Patient denies any complaints as such. Initially he did not want to go to any rehabilitation and wanted to go home. Later on I was informed by case management Jeanna Ortiz that patient now has agreed for rehabilitation. Patient has had a long hospital course the details of which can be found in the previous notes. Currently he was awaiting disposition planning. He is finished with his antibiotics and he is being followed by infectious disease, pulmonology oncology for his metastatic lung disease. Patient still wants to be a full code. He is not ready for hospice at this time. Seroquel was added per psych recommendations last night for his agitation and lack of sleep. That seemed to help some. If there is a bed availability hep he will be able to get discharged to rehabilitation. Please discuss with oncology about the dexamethasone. Please replete potassium.
--- NOTE | 2017-08-15 08:25 | PN- Oncology ---
Subjective Subjective: Per the , he seems to be not as confused. He denies any symptoms this morning. He denies any pain. He would like to go home and do physical therapy. is not happy as she feels people are angry at him for his decision. Review of Systems: Constitutional: Reports: weakness. Denies: chills, fever. Cardiovascular: Denies: chest pain. Respiratory: Reports: cough, short of breath. GI: Denies: abdominal pain, diarrhea. Musculoskeletal: Reports: back pain. Neurological/Psychological: Reports: weakness (generalized). All Other Systems: Reviewed and Negative Objective Vital Signs and I&Os Vital Signs Date Time Temp Pulse Resp B/P B/P Pulse O2 O2 Flow FiO2 Mean Ox Delivery Rate 08/15 0611 98.0 80 20 100/62 94 Room Air 08/15 0610 98.0 80 20 10062 94 Room Air 08/15 0000 92 Room Air 08/14 2158 98.3 112 18 108/60 94 Room Air 08/14 2035 112 108/60 08/14 1600 Room Air 08/14 1421 98.1 112 18 110/80 91 08/14 1128 98.0 104 20 110/60 94 08/14 1047 95 Room Air 08/14 0912 104 112/70 Intake & Output 08/15 1600 08/15 0800 08/15 0000 08/14 1600 08/14 0800 08/14 0000 Intake Total 560 360 500 100 240 Output Total 125 250 Balance 560 360 375 100 -10 Intake, IV 200 150 Intake, Oral 360 360 350 100 240 Number 1 0 Bowel Movements Output, Urine 125 250 Physical Exam: General Appearance: no apparent distress, comfortable, cachetic, thin Respiratory: chest non-tender, decreased breath sounds, crackles, intermittent cough Cardiovascular: tachycardia Gastrointestinal: normal bowel sounds, soft, non-tender Extremities: no edema Neurologic/Psych: alert, oriented x 3, slow speech. Cranial Nerves: normal speech Current Medications: Current Medications Sig/Mikey Start time Last Medication Dose Route Stop Time Status Admin Acetaminophen 650 MG .STK-MED ONE 08/14 1128 DC PO 08/14 1129 Acetaminophen 325 MG Q6P PRN 08/13 1930 AC 08/14 PO 1132 Albuterol Sulfate 3 ML BID 08/12 1000 AC 08/14 INH 1044 Benzonatate 100 MG BID 08/08 1553 AC 08/14 PO 2035 Budesonide/ 2 PUF BID 08/08 1552 AC 08/14 Formoterol Fumarate INH 2038 Cholecalciferol 1,000 IU DAILY 08/08 1553 AC 08/14 PO 0912 Cyanocobalamin 1,000 MCG ONCE ONE 08/14 1345 DC 08/14 IM 08/14 1346 1646 Dexamethasone 2 MG DAILY 08/10 1000 AC 08/14 PO 0912 Digoxin 0.125 MG 1700 08/08 1700 AC 08/14 PO 1645 Enoxaparin Sodium 40 MG DAILY 08/09 1000 AC 08/14 SC 0927 Guaifenesin/Codeine 10 ML Q6-PRN PRN 08/08 1630 AC 08/15 Phosphate PO 0444 Insulin Aspart 0 TIDAC 08/10 1700 AC 08/14 SC 1645 Lorazepam 0.5 MG BID PRN 08/08 1600 DC 08/14 PO 08/15 1559 0912 Magnesium Chloride 128 MG TID 08/11 1600 AC 08/14 PO 203 Magnesium Oxide 400 MG BID 08/14 1310 DC PO 08/14 2201 Magnesium Sulfate 1 GM Q2H 08/14 0845 DC 08/14 Dextrose/Water 100 ML IV 08/14 1244 1147 Metoprolol Tartrate 12.5 MG BID 08/10 1000 AC 08/14 PO 2035 Omeprazole 20 MG DAILY AC 08/15 0700 AC 08/15 PO 0444 Ondansetron HCl 4 MG Q6P PRN 08/12 1015 AC 08/12 IV 1042 Potassium Chloride 40 MEQ BID 08/13 1000 AC 08/14 PO 203 Quetiapine Fumarate 12.5 MG BID PRN 08/15 0630 AC PO Quetiapine Fumarate 12.5 MG AT BEDTIME NEED.. 08/15 0630 AC PO Quetiapine Fumarate 25 MG AT BEDTIME 08/14 2200 DC 08/14 PO 2035 Quetiapine Fumarate 25 MG DAILY NEEDED PRN 08/14 1415 DC PO Risperidone 0.5 MG AT BEDTIME 08/14 2200 CAN PO Risperidone 0.25 MG AT BEDTIME 08/13 2200 DC 08/13 PO 2045 Simethicone 80 MG Q4P PRN 08/13 0830 AC PO Sodium Chloride 500 ML .Q10H 08/14 1400 DC 08/14 IV 08/14 2359 1406 Results Last 24 Hours of Lab Results: Laboratory Tests 08/15 0582 Chemistry Sodium Pending Potassium Pending Chloride Pending Carbon Dioxide Pending Anion Gap Pending BUN Pending Creatinine Pending BUN/Creatinine Ratio Pending Phosphorus Pending Magnesium Pending Assessment/Plan Assessment/Recommendations: Mr. Barraza is a 72-year-old male with metastatic small cell lung cancer, CAD, HLD, HTN, and atrial fibrillation who presented to the hospital with worsening fatigue, cough, and shortness of breath. He has been having progressively worsening weakness and has been basically bed-bound. On presentation, he was noted to be febrile, tachycardic, and hypotensive. Symptomatically improved with fluid resuscitation. CT imaging of the chest, abdomen, and pelvis demonstrated worsening right-sided lung disease, right pleural effusion, and new multi lobular pneumonia on the left side. He remains afebrile. Clinically he is stable. Per the , no one has talked to them about discharge planning. The patient would like to go home with physical therapy. Confusion is a little bit better. His electrolytes continues to be low. 1. metastatic small-cell lung cancer - taper steroid down to home dexamethasone 2 mg daily - continue discussion of goals of care - please contact Kickboxing Instructor to plan discharge home with physical therapy versus jail facility. Family would like to talk to correctional casework specialist regarding options 2. multilobular pneumonia - off antibiotics Please call [phone] with any questions or concerns. Problem List: 1. Metastasis 2. Small cell carcinoma of lung 3. Pleural effusion
--- NOTE | 2017-08-15 14:10 | PN- Pulmonary ---
Subjective HPI/Critical Care Issues: Patient seen and examined this morning. His nausea has subsided overall he appears comfortable and we are evaluating his discharge plan whether to home with [facility] care or to [place]. Objective Current Medications: Current Medications Sig/Mikey Start time Last Medication Dose Route Stop Time Status Admin Acetaminophen 325 MG Q6P PRN 08/13 1930 AC 08/14 PO 1132 Albuterol Sulfate 3 ML BID 08/12 1000 AC 08/15 INH 0932 Benzonatate 100 MG BID 08/08 1553 AC 08/15 PO 1120 Budesonide/ 2 PUF BID 08/08 1552 AC 08/15 Formoterol Fumarate INH 1102 Cholecalciferol 1,000 IU DAILY 08/08 1553 AC 08/15 PO 1120 Dexamethasone 2 MG DAILY 08/10 1000 AC 08/15 PO 1102 Digoxin 0.125 MG 1700 08/08 1700 AC 08/14 PO 1645 Enoxaparin Sodium 40 MG DAILY 08/09 1000 AC 08/15 SC 1100 Guaifenesin/Codeine 10 ML Q6-PRN PRN 08/08 1630 AC 08/15 Phosphate PO 1120 Insulin Aspart 0 TIDAC 08/10 1700 AC 08/15 SC 1323 Magnesium Chloride 128 MG TID 08/11 1600 AC 08/15 PO 1100 Metoprolol Tartrate 12.5 MG BID 08/10 1000 AC 08/14 PO 2035 Omeprazole 20 MG DAILY AC 08/15 0700 AC 08/15 PO 0444 Ondansetron HCl 4 MG Q6P PRN 08/12 1015 AC 08/12 IV 1042 Potassium Chloride 40 MEQ ONCE ONE 08/15 1230 DC 08/15 PO 08/15 1231 1325 Potassium Chloride 40 MEQ BID 08/13 1000 AC 08/15 PO 1100 Quetiapine Fumarate 12.5 MG BID PRN 08/15 0845 AC PO Quetiapine Fumarate 12.5 MG BID PRN 08/15 0630 DC PO Quetiapine Fumarate 12.5 MG AT BEDTIME NEED.. 08/15 0630 AC PO Quetiapine Fumarate 25 MG AT BEDTIME 08/14 2200 DC 08/14 PO 2035 Quetiapine Fumarate 25 MG DAILY NEEDED PRN 08/14 1415 DC PO Simethicone 80 MG Q4P PRN 08/13 0830 AC PO Sodium Chloride 500 ML .Q10H 08/14 1400 DC 08/14 IV 08/14 2359 1406 Vital Signs & I&O Last 24 Hrs of Vitals and I&O: Vital Signs Date Time Temp Pulse Resp B/P B/P Pulse O2 O2 Flow FiO2 Mean Ox Delivery Rate 08/15 1247 Room Air Room Air 08/15 1246 Room Air Room Air 08/15 1238 Room Air Room Air 08/15 1113 98.0 80 20 100/62 08/15 0936 92 Room Air 08/15 0611 98.0 80 20 100/62 94 Room Air 08/15 0610 98.0 80 20 100/62 94 Room Air 08/15 0000 92 Room Air 08/14 2158 98.3 112 18 108/60 94 Room Air 08/14 2035 112 108/60 08/14 1600 Room Air 08/14 1421 98.1 112 18 110/80 91 Intake & Output 08/15 1600 08/15 0800 08/15 0000 Intake Total 560 360 Output Total Balance 560 360 Intake, IV 200 Intake, Oral 360 360 Number 1 Bowel Movements Exam Other Physical Findings: gen awake heent steroid changes to face cvs s1, s2 lungs bilateral rhonchi abd soft, bs+ port in place ext without edema Results Last 24 Hrs of Lab Results: Laboratory Tests 08/15/17 0545: Anion Gap 11, Estimated GFR > 60, BUN/Creatinine Ratio 15.0, Phosphorus 2.7, Magnesium 1.4 L Impression/Plan Impression/Plan Impression/Plan: Impression 72 year old man * 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
[2017-08-15 14:40] VITALS: BP 125/82
--- NOTE | 2017-08-15 15:24 | Patient Discharge Instructions ---
Discharge Instructions General Discharge Information You were seen/treated for: Severe sepsis/multi lobar pneumonia Special Instructions: Please follow-up with your primary care physician in one week of discharge Please follow-up with oncologist in one week of discharge Diet Recommended Diet: Diabetic Activity Additional ACTIVITY Info: As tolerated with assistance Acute Coronary Syndrome Inclusion Criteria At DC or during hospital stay patient has or had the following: ACS DIAGNOSIS No Discharge Core Measures Meds if any: Prescribed or Continued at Discharge Meds if any: NOT Prescribed or Continued at Discharge Congestive Heart Failure Inclusion Criteria At DC or during hospital stay patient has or had the following: CHF DIAGNOSIS No Discharge Core Measures Meds if any: Prescribed or Continued at Discharge Meds if any: NOT Prescribed or Continued at Discharge Cerebrovascular accident Inclusion Criteria At DC or during hospital stay patient has or had the following: CVA/TIA Diagnosis No Discharge Core Measures Meds if any: Prescribed or Continued at Discharge Meds if any: NOT Prescribed or Continued at Discharge Venous thromboembolism Inclusion Criteria VTE Diagnosis No VTE Type NONE VTE Confirmed by (Test) NONE Discharge Core Measures - Per Current guidelines, there needs to be overlap - treatment for the first 5 days of Warfarin therapy. - If discharged on Warfarin prior to 5 days of - overlap therapy, the patient will need to be - assessed for post discharge needs including - *Post discharge parental anticoagulation - *Warfarin and/or parental anticoagulation education - *Follow up date to check INR post discharge At least 5 days overlap therapy as Inpatient No Meds if any: Prescribed or Continued at Discharge Note: Overlap Therapy is Warfarin and Anticoagulant Meds if any: NOT Prescribed or Continued at Discharge
[2017-08-15] MEDS ORDERED: SIMETHICONE80 M1 PO (15:29)
[2017-08-15] MEDS ORDERED: QUETIAPINE FUMA25 M1 PO ×2 (15:29)
[2017-08-15] MEDS ORDERED: SYMBICORT 16010.2 GM INH (15:58)
[2017-08-15 16:10] VITALS: BP 124/70
[2017-08-15 22:19] VITALS: BP 120/60
[2017-08-16 06:50] VITALS: BP 122/68
--- NOTE | 2017-08-16 08:22 | PN- Housestaff ---
Tara Bai 08/16/17 0822: Subjective Follow-up For: Multilobar pneumonia and sepsis Intermittent confusion Lung cancer with brain metastases Complaints: no complaints Subjective: Patient was seen and examined this morning he was sleeping comfortably on bed and no significant overnight events were noted. Patient had intermittent confusion which is almost at his baseline. He remained afebrile with stable blood pressure. Review of Systems Constitutional: Denies: diaphoresis, fever, malaise. Cardiovascular: Denies: edema, orthopena. Respiratory: Denies: cough, hemoptysis. Gastrointestinal: Denies: bloating, diarrhea. Genitourinary: Denies: frequency, hematuria. Objective Last 24 Hrs of Vital Signs/I&O Vital Signs Date Time Temp Pulse Resp B/P B/P Pulse O2 O2 Flow FiO2 Mean Ox Delivery Rate 08/16 0839 97.9 94 20 122/68 08/16 0831 92 Room Air 08/16 0650 97.9 94 20 122/68 91 Room Air 08/16 0000 93 Room Air 08/15 2219 97.6 116 20 120/60 93 08/15 2147 114 130/70 08/15 1630 62 124/70 08/15 1610 62 124/70 94 08/15 1537 Room Air Room Air 08/15 1440 97.6 125 18 125/82 86 Intake & Output 08/16 1600 08/16 0800 08/16 0000 Intake Total 360 480 Output Total 700 Balance 360 -220 Intake, Oral 360 480 Number 1 Bowel Movements Output, Urine 700 Physical Exam General Appearance: Alert, Cooperative Skin: No Breakdown, No Significant Lesion Cardiovascular: Normal S1, Normal S2 Lungs: Normal Air Movement Abdomen: Soft, No Tenderness, No Hepatospenomegaly Current Medications: Current Medications Sig/Mikey Start time Last Medication Dose Route Stop Time Status Admin Acetaminophen 325 MG .STK-MED ONE 08/16 0031 DC PO 08/16 0032 Acetaminophen 325 MG .STK-MED ONE 08/15 1751 DC PO 08/15 1752 Acetaminophen 325 MG Q6P PRN 08/13 1930 AC 08/16 PO 1327 Albuterol Sulfate 3 ML BID 08/12 1000 AC 08/16 INH 0812 Benzonatate 100 MG BID 08/08 1553 AC 08/16 PO 0839 Budesonide/ 2 PUF BID 08/08 1552 AC 08/16 Formoterol Fumarate INH 0838 Cholecalciferol 1,000 IU DAILY 08/08 1553 AC 08/16 PO 0839 Dexamethasone 2 MG DAILY 08/10 1000 AC 08/16 PO 0838 Digoxin 0.125 MG 1700 08/08 1700 AC 08/15 PO 1630 Enoxaparin Sodium 40 MG DAILY 08/09 1000 AC 08/16 SC 0838 Guaifenesin/Codeine 10 ML Q6-PRN PRN 08/08 1630 AC 08/16 Phosphate PO 1135 Insulin Aspart 0 TIDAC 08/10 1700 AC 08/16 SC 1219 Magnesium Chloride 128 MG TID 08/11 1600 AC 08/16 PO 0839 Metoprolol Tartrate 12.5 MG BID 08/10 1000 AC 08/16 PO 0839 Omeprazole 20 MG DAILY AC 08/15 0700 AC 08/16 PO 0619 Ondansetron HCl 4 MG Q6P PRN 08/12 1015 AC 08/12 IV 1042 Potassium Chloride 40 MEQ BID 08/13 1000 AC 08/16 PO 0839 Quetiapine Fumarate 12.5 MG BID PRN 08/15 0845 AC 08/15 PO 1754 Quetiapine Fumarate 12.5 MG AT BEDTIME NEED.. 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 hypertension, hyperlipidemia, diabetes?, A. fib not on anticoagulation, GERD, last chemotherapy was February 2017 and radiation to the brain was April 2017 here with multilobar pneumonia. Problem List: 1. Severe Sepsis 2. Multilobar pneumonia 3. Subtherapeutic digoxin 4. Electrolyte abnormalities 5. Disposition Problems #Disposition Problems: The patient is now off antibiotics and medically stable for discharge to home hospice. He was initially requesting home hospice. However the patient now does not want to go to hospice and is now requesting physical therapy. We did request psychiatry, evaluate him for competence given that he has been intermittently confused. According to their evaluation 2 days ago that he is able to make his own. We will send him to [facility] today -Risperidone when necessary at night -Appreciate psychiatry recommendations -PT consult #Severe sepsis secondary to multilobar pneumonia: Resolved. Patient presented with productive cough, increased confusion, and shortness of breath. He was found to me 3/4 SIRS criteria (tachycardia, tachypnea, leukocytosis) with suspected source in lung, meeting criteria for sepsis with lactic acidosis. Lactic acid is trended down status post fluid resuscitation. He was initially started on ceftriaxone and azithromycin. However the patient became hypotensive the night of admission and the antibiotic coverage was broadened to vancomycin and ceftazidine. Antibiotics were stopped and he has improved markedly. -Appreciate pulmonology recommendations -Guaifenesin -Budesonide/formoterol -Benzonatate -TRC nebs -Appreciate ID recommendations #Chronic medical problems/electrolyte imbalance -Continue home magnesium, digoxin, lorazepam, cholecalciferol. Electrolytes were replaced on regular basis. DVT prophylaxis with enoxaparin Consistent carbohydrate 2 diet Full code: Patient still wants to be full code. Problem List: 1. Metastasis 2. Pneumonia Pain Ratin Pain Location: NA Pain Goal: Remain pain free Pain Plan: TYLENOL Tomorrow's Labs & Rationales: NONE Clarita Bray MD 08/16/17 1332: Attending MD Review Statement Attending Statement Attending MD Statement: examined this patient, discuss w/resident/PA/CHAINSTITCH HEMMER, agreed w/resident/PA/CHAINSTITCH HEMMER, reviewed EMR data (avail), discussed with nursing, discussed with case mgmt, reviewed images, amended to note Attending Assessment/Plan: Patient seen and examined, this morning he was taking off his sheets as well as his clothes. He claims that he's not been did not want to eat anything. Patient seemed confused and agitated. He has very poor by mouth intake. He still has a sitter. Vital Signs Date Time Temp Pulse Resp B/P B/P Pulse O2 O2 Flow FiO2 Mean Ox Delivery Rate 08/16 0839 97.9 94 20 122/68 08/16 0831 92 Room Air 08/16 0650 97.9 94 20 122/68 91 Room Air 08/16 0000 93 Room Air 08/15 2219 97.6 116 20 120/60 93 08/15 2147 114 130/70 08/15 1630 62 124/70 08/15 1610 62 124/70 94 08/15 1537 Room Air Room Air 08/15 1440 97.6 125 18 125/82 86 on exam; awake, confused, agitated. cv; s1,s2, rrr resp; clear abd; soft, nt, bs+ ext; trace edema. 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 hypertension, hyperlipidemia, diabetes?, A. fib not on anticoagulation, GERD, last chemotherapy was February 2017 and radiation to the brain admitted with sepsis, multilobar pneumonia, status post treatment, electrolytes abnormalities and now some issues with disposition planning as well as goals of care. Patient remains a full code as per discussion with him and his yesterday. He is confused this morning and agitated. Initial plan was to send him to [facility] but he still has a sitter. With such a poor by mouth intake as well as agitation, short-term rehabilitation will not be a good plan for disposition. Please consult psych for competency evaluation. Continue current medications. We tried to talk with the patient as well as again about discussing goals of care.
[2017-08-16] MEDS ORDERED: KLOR-CON M2020 ME1 PO (10:44)
[2017-08-16 15:15] VITALS: BP 110/90
[2017-08-16 22:31] VITALS: BP 102/60
[2017-08-17 06:53] VITALS: BP 106/64
--- NOTE | 2017-08-17 07:35 | PN- Housestaff ---
Tara Bai 08/17/17 0735: Subjective Follow-up For: Multilobar pneumonia and sepsis Intermittent confusion Lung cancer with brain metastases Subjective: Patient was seen and examined this morning. He was lying comfortably on bed and was taking his and sure. He was mentating fine and adamantly refused to go to rehabilitation. Discussion was done with family and his agreed upon to take him home with home health services. He stable to be discharged today Review of Systems Constitutional: Denies: diaphoresis, fever. Cardiovascular: Denies: see HPI, orthopena. Respiratory: Denies: hemoptysis, orthopnea. Gastrointestinal: Denies: bloating, constipation. Genitourinary: Denies: dysuria, hematuria. Objective Last 24 Hrs of Vital Signs/I&O Vital Signs Date Time Temp Pulse Resp B/P B/P Pulse O2 O2 Flow FiO2 Mean Ox Delivery Rate 08/17 1353 98.1 91 17 110/70 91 08/17 0912 94 Room Air Room Air 08/17 0842 130/78 08/17 0800 Room Air 08/17 0653 97.7 108 20 106/64 93 Room Air 08/17 0000 91 Room Air 08/16 2231 98.3 109 20 102/60 91 08/16 2213 85 102/60 08/16 1850 96 Room Air 08/16 1621 98.1 110 19 110/90 Intake & Output 08/17 1600 08/17 0800 08/17 0000 Intake Total 200 50 240 Output Total 200 Balance 0 50 240 Intake, IV 0 Intake, Oral 200 50 240 Number 0 Bowel Movements Output, Urine 200 Physical Exam General Appearance: Alert, Oriented X3, Cooperative, No Acute Distress Cardiovascular: Regular Rate, Normal S1, Normal S2 Lungs: Normal Air Movement Abdomen: Soft, No Tenderness Current Medications: Current Medications Sig/Mikey Start time Last Medication Dose Route Stop Time Status Admin Acetaminophen 325 MG Q6P PRN 08/13 1930 DCD 08/16 PO 1327 Albuterol Sulfate 3 ML BID 08/12 1000 DCD 08/17 INH 0911 Benzonatate 100 MG BID 08/08 1553 DCD 08/17 PO 0841 Budesonide/ 2 PUF BID 08/08 1552 DCD 08/17 Formoterol Fumarate INH 0847 Cholecalciferol 1,000 IU DAILY 08/08 1553 DCD 08/17 PO 0841 Dexamethasone 2 MG DAILY 08/10 1000 DCD 08/17 PO 0842 Digoxin 0.125 MG 1700 08/08 1700 DCD 08/16 PO 1621 Enoxaparin Sodium 40 MG DAILY 08/09 1000 DCD 08/17 SC 0842 Guaifenesin/Codeine 10 ML Q6-PRN PRN 08/08 1630 DCD 08/17 Phosphate PO 0200 Insulin Aspart 0 TIDAC 08/10 1700 DCD 08/16 SC 1622 Magnesium Chloride 128 MG TID 08/11 1600 DCD 08/17 PO 0843 Metoprolol Tartrate 12.5 MG BID 08/10 1000 DCD 08/17 PO 0842 Omeprazole 20 MG DAILY AC 08/15 0700 DCD 08/17 PO 0532 Ondansetron HCl 4 MG Q6P PRN 08/12 1015 DCD 08/12 IV 1042 Potassium Chloride 40 MEQ BID 08/13 1000 DCD 08/17 PO 0842 Quetiapine Fumarate 12.5 MG BID PRN 08/15 0845 DCD 08/15 PO 1754 Quetiapine Fumarate 12.5 MG AT BEDTIME NEED.. 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 hypertension, hyperlipidemia, diabetes?, A. fib not on anticoagulation, GERD, last chemotherapy was February 2017 and radiation to the brain was April 2017 here with multilobar pneumonia. Problem List: 1. Severe Sepsis 2. Multilobar pneumonia 3. Subtherapeutic digoxin 4. Electrolyte abnormalities 5. Disposition Problems #Disposition Problems: The patient is now off antibiotics and medically stable for discharge to home hospice. He was initially requesting home hospice. However the patient now does not want to go to hospice and is now requesting physical therapy. We did request psychiatry, evaluate him for competence given that he has been intermittently confused. According to their evaluation 2 days ago that he is able to make his own. We will send him to [facility] today -Risperidone when necessary at night -Appreciate psychiatry recommendations -After discussing with special education case manager, family and him that this was made to discharge him to home on home health services. #Severe sepsis secondary to multilobar pneumonia: Resolved. Patient presented with productive cough, increased confusion, and shortness of breath. He was found to me 3/4 SIRS criteria (tachycardia, tachypnea, leukocytosis) with suspected source in lung, meeting criteria for sepsis with lactic acidosis. Lactic acid is trended down status post fluid resuscitation. He was initially started on ceftriaxone and azithromycin. However the patient became hypotensive the night of admission and the antibiotic coverage was broadened to vancomycin and ceftazidine. Antibiotics were stopped and he has improved markedly. -Appreciate pulmonology recommendations -Guaifenesin -Budesonide/formoterol -Benzonatate -TRC nebs #Chronic medical problems/electrolyte imbalance -Continue home magnesium, digoxin, lorazepam, cholecalciferol. Electrolytes were replaced on regular basis. DVT prophylaxis with enoxaparin Consistent carbohydrate 2 diet Full code: Patient still wants to be full code. Problem List: 1. Metastasis Pain Ratin Pain Location: Not applicable Pain Goal: Remain pain free Pain Plan: Tylenol Tomorrow's Labs & Rationales: None Clarita Bray MD 08/17/17 1220: Attending MD Review Statement Attending Statement Attending MD Statement: examined this patient, discuss w/resident/PA/ARABIC TEACHER, agreed w/resident/PA/ARABIC TEACHER, discussed with family, reviewed EMR data (avail), discussed with nursing, discussed with case mgmt, reviewed images, amended to note Attending Assessment/Plan: Patient seen and examined, he was sleeping this morning. is present at bedside. No acute events overnight and according to the report, he did sleep. He still has a sitter. Vital Signs Date Time Temp Pulse Resp B/P B/P Pulse O2 O2 Flow FiO2 Mean Ox Delivery Rate 08/17 0912 94 Room Air Room Air 08/17 0842 130/78 08/17 0800 Room Air 08/17 0653 97.7 108 20 106/64 93 Room Air 08/17 0000 91 Room Air 08/16 2231 98.3 109 20 102/60 91 08/16 2213 85 102/60 08/16 1850 96 Room Air 08/16 1621 98.1 110 19 110/90 08/16 1515 98.1 110 19 110/90 96 Room Air on exam; sleeping cv; s1,s2, rrr resp; decreased bs overall. abd; soft, nt, bs+ ext; no edema. no labs toady. 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 hypertension, hyperlipidemia, diabetes?, A. fib not on anticoagulation, GERD, last chemotherapy was February 2017 and radiation to the brain admitted with sepsis, multilobar pneumonia, status post treatment, electrolytes abnormalities and now some issues with disposition planning as well as goals of care. Discussed with patient's as well as patient and they still want to be full code. Multiple discussions have been made between the consultants as well as patient and family and they still want to be full code. Ultimate plan is for him to go to rehabilitation but unfortunately he remains with a sitter. Agitation is slightly better today. If he remains without agitation, likely can discontinue the sitter and then to the discharge planning. Please check CBC in the morning. Continue all current medications. Continue Seroquel at at bedtime for sleep. Patient on Lovenox for DVT prophylaxis. Lengthy discussion with patient and case management. Patient kept on refusing Rehab. Understands the risks of going home. says she is not comfortable but unfortunately has no other chooice. Medically stable for Discharge. D/W Case management and made sure that they discuss with pateint and his about her concerns. PT saw him in bed and did some bed exercises. Pt says ok for home wi9th 24 hour care which will be his . says she will have to call EMS if she cannot handle him home. case management is arrnaging home health services. home PT and [facility] support for home discharge with services.
--- NOTE | 2017-08-17 10:45 | PN- Oncology ---
Subjective Subjective: He continues to have some confusion this morning. He denies any new pain. Review of Systems Constitutional: Denies: chills, fever. Cardiovascular: Denies: chest pain. Respiratory: Reports: cough, short of breath. Musculoskeletal: Reports: back pain. Neurological/Psychological: Reports: confusion. All Other Systems: Reviewed and Negative Comments: Limited secondary to mental status and confusion Objective Vital Signs and I&Os Vital Signs Date Time Temp Pulse Resp B/P B/P Pulse O2 O2 Flow FiO2 Mean Ox Delivery Rate 08/17 0912 94 Room Air Room Air 08/17 0842 130/78 08/17 0800 Room Air 08/17 0653 97.7 108 20 106/64 93 Room Air 08/17 0000 91 Room Air 08/16 2231 98.3 109 20 102/60 91 08/16 2213 85 102/60 08/16 1850 96 Room Air 08/16 1621 98.1 110 19 110/90 08/16 1515 98.1 110 19 110/90 96 Room Air Intake & Output 08/17 1600 08/17 0800 08/17 0000 08/16 1600 08/16 0800 08/16 0000 Intake Total 50 240 860 360 480 Output Total 300 700 Balance 50 240 560 360 -220 Intake, IV 0 Intake, Oral 50 240 860 360 480 Number 0 1 1 Bowel Movements Output, Urine 300 700 Physical Exam: General Appearance: no apparent distress, comfortable, cachetic, thin, prominent Respiratory: chest non-tender, decreased breath sounds, crackles, intermittent cough Cardiovascular: tachycardia Gastrointestinal: normal bowel sounds, soft, non-tender Extremities: no edema Neurologic/Psych: alert, oriented only to self, slow speech, stuttering Current Medications: Current Medications Sig/Mikey Start time Last Medication Dose Route Stop Time Status Admin Acetaminophen 325 MG .STK-MED ONE 08/16 1327 DC PO 08/16 1328 Acetaminophen 325 MG Q6P PRN 08/13 1930 AC 08/16 PO 1327 Albuterol Sulfate 3 ML BID 08/12 1000 AC 08/17 INH 0911 Benzonatate 100 MG BID 08/08 1553 AC 08/17 PO 0841 Budesonide/ 2 PUF BID 08/08 1552 AC 08/16 Formoterol Fumarate INH 2211 Cholecalciferol 1,000 IU DAILY 08/08 1553 AC 08/17 PO 0841 Dexamethasone 2 MG DAILY 08/10 1000 AC 08/17 PO 0842 Digoxin 0.125 MG 1700 08/08 1700 AC 08/16 PO 1621 Enoxaparin Sodium 40 MG DAILY 08/09 1000 AC 08/17 SC 0842 Guaifenesin/Codeine 10 ML Q6-PRN PRN 08/08 1630 AC 08/17 Phosphate PO 0200 Insulin Aspart 0 TIDAC 08/10 1700 AC 08/16 SC 1622 Magnesium Chloride 128 MG TID 08/11 1600 AC 08/17 PO 0843 Metoprolol Tartrate 12.5 MG BID 08/10 1000 AC 08/17 PO 0842 Omeprazole 20 MG DAILY AC 08/15 0700 AC 08/17 PO 0532 Ondansetron HCl 4 MG Q6P PRN 08/12 1015 AC 08/12 IV 1042 Potassium Chloride 40 MEQ ONCE ONE 08/16 1415 DC 08/16 PO 08/16 1416 1620 Potassium Chloride 40 MEQ BID 08/13 1000 AC 08/17 PO 0842 Quetiapine Fumarate 12.5 MG BID PRN 08/15 0845 AC 08/15 PO 1754 Quetiapine Fumarate 12.5 MG AT BEDTIME NEED.. 08/15 0630 AC 08/16 PO 0032 Simethicone 80 MG Q4P PRN 08/13 0830 AC 08/16 PO 1327 Assessment/Plan Assessment/Recommendations: Mr. Barraza is a 72-year-old male with metastatic small cell lung cancer, CAD, HLD, HTN, and atrial fibrillation who presented to the hospital with worsening fatigue, cough, and shortness of breath. He has been having progressively worsening weakness and has been basically bed-bound. On presentation, he was noted to be febrile, tachycardic, and hypotensive. Symptomatically improved with fluid resuscitation. CT imaging of the chest, abdomen, and pelvis demonstrated worsening right-sided lung disease, right pleural effusion, and new multi lobular pneumonia on the left side. He is currently off antibiotics and is afebrile. He continues to be confused. He continues have sitter. Clinically, he seems to be declining. It will be difficult for him to get to short-term rehab with persistent requirement for sitter. Given progressive mental status issue and full code, he may need repeat imaging of the brain. Given progressive disease and poor prognosis, discussion for transition to hospice is reasonable. Patient is has declined hospice multiple times. He will continue with current level care for now. 1. metastatic small-cell lung cancer - may need repeat brain imaging - can taper down to the home dosing of 2 mg or lower if needed (appetite stimulant) - continue discussion of goals of care - he will likely need skilled facility versus short-term rehab 2. multilobular pneumonia - off antibiotics - stable currently Please call [phone] with any questions or concerns. Problem List: 1. Pleural effusion 2. Pneumonia 3. Small cell carcinoma of lung
[2017-08-17 13:53] VITALS: BP 110/70
[2017-08-17] MEDS ORDERED: SLOW-MAG71.5 MG PO (14:16)
[2017-08-17] MEDS ORDERED: QUETIAPINE FUMA25 M1 PO ×2 (14:16)
[2017-08-17] MEDS ORDERED: SYMBICORT 16010.2 GM INH (14:16)
[2017-08-17] MEDS ORDERED: METOPROLOL TART25 M1 PO (14:16)
[2017-08-17] MEDS ORDERED: KLOR-CON M2020 ME1 PO (14:16)
[2017-08-17] MEDS ORDERED: SIMETHICONE80 M1 PO (14:16)
--- NOTE | 2017-08-17 14:46 | PN- Pulmonary ---
Subjective HPI/Critical Care Issues: Patient seen and examined this morning. He was delirious previously and is transferred to [place] was held. Objective Current Medications: Current Medications Sig/Mikey Start time Last Medication Dose Route Stop Time Status Admin Acetaminophen 325 MG Q6P PRN 08/13 1930 AC 08/16 PO 1327 Albuterol Sulfate 3 ML BID 08/12 1000 AC 08/17 INH 0911 Benzonatate 100 MG BID 08/08 1553 AC 08/17 PO 0841 Budesonide/ 2 PUF BID 08/08 1552 AC 08/17 Formoterol Fumarate INH 0847 Cholecalciferol 1,000 IU DAILY 08/08 1553 AC 08/17 PO 0841 Dexamethasone 2 MG DAILY 08/10 1000 AC 08/17 PO 0842 Digoxin 0.125 MG 1700 08/08 1700 AC 08/16 PO 1621 Enoxaparin Sodium 40 MG DAILY 08/09 1000 AC 08/17 SC 0842 Guaifenesin/Codeine 10 ML Q6-PRN PRN 08/08 1630 AC 08/17 Phosphate PO 0200 Insulin Aspart 0 TIDAC 08/10 1700 AC 08/16 SC 1622 Magnesium Chloride 128 MG TID 08/11 1600 AC 08/17 PO 0843 Metoprolol Tartrate 12.5 MG BID 08/10 1000 AC 08/17 PO 0842 Omeprazole 20 MG DAILY AC 08/15 0700 AC 08/17 PO 0532 Ondansetron HCl 4 MG Q6P PRN 08/12 1015 AC 08/12 IV 1042 Potassium Chloride 40 MEQ BID 08/13 1000 AC 08/17 PO 0842 Quetiapine Fumarate 12.5 MG BID PRN 08/15 0845 AC 08/15 PO 1754 Quetiapine Fumarate 12.5 MG AT BEDTIME NEED.. 08/15 0630 AC 08/16 PO 0032 Simethicone 80 MG Q4P PRN 08/13 0830 AC 08/16 PO 1327 Vital Signs & I&O Last 24 Hrs of Vitals and I&O: Vital Signs Date Time Temp Pulse Resp B/P B/P Pulse O2 O2 Flow FiO2 Mean Ox Delivery Rate 08/17 1353 98.1 91 17 110/70 91 08/17 0912 94 Room Air Room Air 08/17 0842 130/78 08/17 0800 Room Air 08/17 0653 97.7 108 20 106/64 93 Room Air 08/17 0000 91 Room Air 08/16 2231 98.3 109 20 102/60 91 08/16 2213 85 102/60 08/16 1850 96 Room Air 08/16 1621 98.1 110 19 110/90 08/16 1515 98.1 110 19 110 96 Room Air Intake & Output 08/17 1600 08/17 0800 08/17 0000 Intake Total 200 50 240 Output Total 200 Balance 0 50 240 Intake, IV 0 Intake, Oral 200 50 240 Number 0 Bowel Movements Output, Urine 200 Exam Other Physical Findings: gen awake heent steroid changes to face cvs s1, s2 lungs bilateral rhonchi abd soft, bs+ port in place ext without edema Impression/Plan Impression/Plan Impression/Plan: Impression 72 year old man * 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
== END 2017-08-17 15:10 | disposition home health service (06) | DRG 871 ==
LOC: ERH 09:20 → ERHI 14:19 → 1NO 14:19 → ENRESERV 14:57 → 1NO 16:20 → ENTRNSPT 08-14 10:48 → EDTRNSPTSTS 08-14 10:53 → EDTRNSPT 08-14 10:53 → 2NA 08-14 11:06 → CMPTRNSPT 08-14 11:13 → 2NA 08-14 13:22 → ENPENDDIS 08-17 12:59 → 2NA 08-17 15:10
PROVIDERS: Internal Medicine; Physician Assistant; Radiology Vascular & Interventional Radiology
DX: A41.9 Sepsis, unspecified organism (principal); J96.01 Acute respiratory failure with hypoxia; R64 Cachexia; E46 Unspecified protein-calorie malnutrition; L89.323 Pressure ulcer of left buttock, stage 3; E87.3 Alkalosis; J18.1 Lobar pneumonia, unspecified organism; E87.2 Acidosis; C79.31 Secondary malignant neoplasm of brain; C34.11 Malignant neoplasm of upper lobe, right bronchus or lung; I48.91 Unspecified atrial fibrillation; R65.20 Severe sepsis without septic shock; Z68.22 Body mass index [BMI] 22.0-22.9, adult; Z85.118 Personal history of other malignant neoplasm of bronchus and lung; Z92.3 Personal history of irradiation; Z92.21 Personal history of antineoplastic chemotherapy; I25.2 Old myocardial infarction; I10 Essential (primary) hypertension; E78.5 Hyperlipidemia, unspecified; K21.9 Gastro-esophageal reflux disease without esophagitis; R79.1 Abnormal coagulation profile; I25.10 Atherosclerotic heart disease of native coronary artery without angina pectoris; Z74.01 Bed confinement status; F32.9 Major depressive disorder, single episode, unspecified; E11.9 Type 2 diabetes mellitus without complications; E86.0 Dehydration; R11.10 Vomiting, unspecified
CPT/HCPCS: 1NP; 1NSP; 2NASP; 86618; 36415; 71046; 74018; 74177; 81001; 82436; 87040; 87070; 87071; 87086; 87449; 87450; 87804; 87804-59; 93005; 93010; 96374; 96375; 97110-GO; 97161-GP; 97530-GO; 99232; 99291; J0131; J0456; J0696; J0713; J1650; J1720; J2405; J3370; J3420; J3490; J7040; J7060